=== PATIENT | male | born 1945 | race Caucasian/White ===

== ENCOUNTER 2020-07-15 10:00 | Outpatient (CLI) | payer MEDICARE, SELFPAY ==
[2020-07-15 10:33] LABS: Basophils Absolute Auto 0.1 K/mm3 (0.0-0.1); Basophils Percent Auto 0.8 % (0.2-1.2); Eosinophils Absolute Auto 0.2 K/mm3 (0-0.3); Eosinophils Percent Auto 2.4 % (0-4.4); Hematocrit 41.4 % (42.0-52.0); Hemoglobin 13.8 g/dL (14.0-18.0); Immature Granulocyte Absolute 0.03 K/mm3 (0.00-0.031); Immature Granulocyte Percent A 0.5 % (0-0.5); Lymphocytes Percent Auto 18.8 % (18.3-44.2); Mean Corpuscular HGB Conc 33.3 g/dl (32-36); Mean Corpuscular Hemoglobin 28.3 pg (26-34); Mean Corpuscular Volume 84.8 fl (80-100); Mean Platelet Volume 10.4 fl (7.4-10.4); Monocytes Absolute Auto 0.7 K/mm3 (0.1-0.6); Monocytes Percent Auto 10.2 % (2.6-8.5); Neutrophils Absolute Auto 4.3 K/mm3 (1.3-6.7); Neutrophils Percent Auto 67.3 % (45.5-73.1); Platelet Count Result 147 k/mm3 (150-375); Red Blood Count 4.88 M/mm3 (4.6-6.20); Red Cell Distribution Width 15.5 % (11.5-14.5); White Blood Count 6.4 K/mm3 (4.5-10.0)
[2020-07-15 10:45] LABS: Alanine Aminotransferase 20 U/L (4-50); Albumin Level 4.3 g/dL (3.5-5.1); Alkaline Phosphatase 99 U/L (38-126); Anion Gap 9 mmol/L (8-16); Aspartate Amino Transferase 31 U/L (17-59); Bilirubin,Total 0.9 mg/dL (0.2-1.3); Blood Urea Nitrogen 20 mg/dL (9-20); Calcium 9.6 mg/dL (8.4-10.2); Carbon Dioxide 24 mmol/L (22-30); Chloride 106 mmol/L (98-107); Cholesterol 123 mg/dL (0-200); Estimated Glomerular Filt Rate > 60; Glucose 127 mg/dL (75-110); HDL Direct 35 mg/dL; Potassium 4.3 mmol/L (3.4-5.0); Sodium 139 mmol/L (137-145); Triglycerides 260 mg/dL (<150)
[2020-07-15 10:47] LABS: Add Urine Microscopic? YES; Appearance Urine Clear (Clear); Bilirubin Urine Negative (Negative); Blood Urine Negative (Negative); Color Urine Yellow (Yellow); Glucose Urine UA Negative (Negative); Ketones Urine Negative (Negative); Leukocyte Esterase Ur Negative LEU/UL (NEGATIVE); Mucus Urine Rare /lpf; Nitrate Urine Negative (Negative); Protein Urine 2+ mg/dL (Negative); RBC Urine 0-2 /hpf (0-2); Specific Grav Ur 1.019 (1.001-1.035); Urobilinogen Urine Negative mg/dL (<2.0); WBC Urine 0-3 /hpf (0-3)
[2020-07-15 11:14] LABS: Prostate Specific Antigen 1.4 ng/mL (< OR = 4.0)
[2020-07-15 13:09] LABS: LDL Cholesterol Direct < 30 mg/dL
== END 2020-07-15 10:01 | disposition home or self-care (01) ==
LOC: ANHLAB 10:03
PROVIDERS: PCP Internal Medicine; Visit Provider Internal Medicine
DX: I10 Essential (primary) hypertension (principal); E87.1 Hypo-osmolality and hyponatremia; I25.10 Atherosclerotic heart disease of native coronary artery without angina pectoris; E78.5 Hyperlipidemia, unspecified; Z12.5 Encounter for screening for malignant neoplasm of prostate
CPT/HCPCS: 36415; 80053; 80061; 81001; 84153; 85025; G0103

== ENCOUNTER 2020-07-27 10:16 | Outpatient (CLI) | payer MEDICARE, SELFPAY ==
[2020-07-27 10:59] LABS: Total Protein Urine Random 98 mg/dL
== END 2020-07-27 10:17 | disposition home or self-care (01) ==
PROVIDERS: PCP Internal Medicine; Visit Provider Internal Medicine
DX: R80.9 Proteinuria, unspecified (principal)
CPT/HCPCS: 81050; 84156

== ENCOUNTER 2021-01-11 10:59 | Outpatient (CLI) | payer MEDICARE, SELFPAY ==
[2021-01-11 12:04] LABS: Basophils Percent Auto 0.5 % (0.2-1.2); Eosinophils Absolute Auto 0.1 K/mm3 (0-0.3); Hematocrit 40.6 % (42.0-52.0); Hemoglobin 13.8 g/dL (14.0-18.0); Immature Granulocyte Absolute 0.04 K/mm3 (0.00-0.031); Immature Granulocyte Percent A 0.7 % (0-0.5); Lymphocytes Absolute Auto 1.16 K/mm3 (0.9-3.2); Lymphocytes Percent Auto 18.9 % (18.3-44.2); Mean Corpuscular Hemoglobin 28.1 pg (26-34); Mean Corpuscular Volume 82.7 fl (80-100); Mean Platelet Volume 10.3 fl (7.4-10.4); Monocytes Absolute Auto 0.6 K/mm3 (0.1-0.6); Monocytes Percent Auto 9.8 % (2.6-8.5); Neutrophils Absolute Auto 4.2 K/mm3 (1.3-6.7); Neutrophils Percent Auto 68.1 % (45.5-73.1); Platelet Count Result 148 k/mm3 (150-375); Red Blood Count 4.91 M/mm3 (4.6-6.20); White Blood Count 6.1 K/mm3 (4.5-10.0)
[2021-01-11 12:17] LABS: Anion Gap 8 mmol/L (8-16); Blood Urea Nitrogen 22 mg/dL (9-20); Calcium 9.6 mg/dL (8.4-10.2); Carbon Dioxide 23 mmol/L (22-30); Chloride 105 mmol/L (98-107); Estimated Glomerular Filt Rate 54; Glucose 133 mg/dL (75-110); Potassium 4.5 mmol/L (3.4-5.0); Sodium 136 mmol/L (137-145)
[2021-01-11 12:45] LABS: Total Protein Urine Random 51 mg/dL
[2021-01-11 12:47] LABS: Hemoglobin A1C 6.8 % (<5.7)
== END 2021-01-11 11:00 | disposition home or self-care (01) ==
LOC: ANHLAB 11:03
PROVIDERS: PCP Internal Medicine; Visit Provider Internal Medicine
DX: I25.10 Atherosclerotic heart disease of native coronary artery without angina pectoris (principal); I10 Essential (primary) hypertension; R73.9 Hyperglycemia, unspecified; R80.9 Proteinuria, unspecified
CPT/HCPCS: 36415; 80048; 81050; 83036; 84156; 85025

== ENCOUNTER 2021-04-23 07:19 | Outpatient (CLI) | payer MEDICARE, SELFPAY ==
[2021-04-23 09:41] LABS: Hemoglobin A1C 6.1 % (<5.7)
[2021-04-23 09:49] LABS: Alanine Aminotransferase 23 U/L (4-50); Albumin Level 4.3 g/dL (3.5-5.1); Alkaline Phosphatase 105 U/L (38-126); Anion Gap 9 mmol/L (8-16); Aspartate Amino Transferase 34 U/L (17-59); Bilirubin,Total 0.8 mg/dL (0.2-1.3); Blood Urea Nitrogen 18 mg/dL (9-20); Calcium 9.3 mg/dL (8.4-10.2); Carbon Dioxide 21 mmol/L (22-30); Chloride 106 mmol/L (98-107); Cholesterol 146 mg/dL (0-200); Estimated Glomerular Filt Rate > 60; Glucose 143 mg/dL (65-110); HDL Direct 33 mg/dL; Potassium 4.3 mmol/L (3.4-5.0); Sodium 136 mmol/L (137-145); Triglycerides 364 mg/dL (<150)
[2021-04-23 11:33] LABS: LDL Cholesterol Direct < 30 mg/dL
== END 2021-04-23 07:20 | disposition home or self-care (01) ==
PROVIDERS: PCP Internal Medicine; Visit Provider Internal Medicine
DX: E11.9 Type 2 diabetes mellitus without complications (principal)
CPT/HCPCS: 36415; 80053; 80061; 83036

== ENCOUNTER 2021-10-21 07:55 | Outpatient (CLI) | payer MEDICARE, SELFPAY ==
[2021-10-21 08:19] LABS: Basophils Percent Auto 0.7 % (0.2-1.2); Eosinophils Absolute Auto 0.2 K/mm3 (0-0.3); Eosinophils Percent Auto 3.2 % (0-4.4); Hematocrit 43.1 % (42.0-52.0); Hemoglobin 14.3 g/dL (14.0-18.0); Immature Granulocyte Absolute 0.03 K/mm3 (0.00-0.031); Immature Granulocyte Percent A 0.5 % (0-0.5); Immature Platelet Fraction Pct 5.9 % (0.9-11.2); Lymphocytes Percent Auto 17.5 % (18.3-44.2); Mean Corpuscular HGB Conc 33.2 g/dl (32-36); Mean Corpuscular Volume 90.5 fl (80-100); Mean Platelet Volume 10.6 fl (7.4-10.4); Monocytes Absolute Auto 0.6 K/mm3 (0.1-0.6); Monocytes Percent Auto 9.8 % (2.6-8.5); Neutrophils Absolute Auto 3.9 K/mm3 (1.3-6.7); Neutrophils Percent Auto 68.3 % (45.5-73.1); Platelet Count Result 142 k/mm3 (150-375); Red Blood Count 4.76 M/mm3 (4.6-6.20); Red Cell Distribution Width 15.5 % (11.5-14.5); White Blood Count 5.7 K/mm3 (4.5-10.0)
[2021-10-21 08:30] LABS: Alanine Aminotransferase 19 U/L (4-50); Albumin Level 4.4 g/dL (3.5-5.1); Alkaline Phosphatase 78 U/L (38-126); Anion Gap 9 mmol/L (8-16); Aspartate Amino Transferase 29 U/L (17-59); Bilirubin,Total 0.8 mg/dL (0.2-1.3); Blood Urea Nitrogen 15 mg/dL (9-20); Calcium 9.5 mg/dL (8.4-10.2); Carbon Dioxide 22 mmol/L (22-30); Chloride 107 mmol/L (98-107); Cholesterol 134 mg/dL (0-200); Estimated Glomerular Filt Rate > 60; Glucose 132 mg/dL (65-110); HDL Direct 38 mg/dL; Potassium 4.2 mmol/L (3.4-5.0); Sodium 138 mmol/L (137-145); Triglycerides 230 mg/dL (<150)
[2021-10-21 08:41] LABS: Hemoglobin A1C 5.3 % (<5.7)
[2021-10-21 08:53] LABS: Creatinine Urine 169.9 mg/dL
[2021-10-21 09:04] LABS: LDL Cholesterol Direct < 30 mg/dL
[2021-10-21 10:36] LABS: MALB Creatinine Ratio 528.4 mg/g (0-30); Microalbumin Urine Random 897.8 mg/L (0-16.7)
== END 2021-10-21 07:56 | disposition home or self-care (01) ==
PROVIDERS: PCP Internal Medicine; Visit Provider Internal Medicine
DX: E11.9 Type 2 diabetes mellitus without complications (principal)
CPT/HCPCS: 36415; 80053; 80061; 82043; 83036; 85025; 85055

== ENCOUNTER 2021-11-10 11:16 | Outpatient (CLI) | payer MEDICARE, SELFPAY ==
--- NOTE | ~2021-11-10 | US_ITS ---
EXAMINATION: US renal BI EXAM DATE: 11/10/2021 11:52 INDICATION: R80.9 - Proteinuria, unspecified. TECHNIQUE: Multiple grayscale and Doppler images of the kidneys were obtained (by a technologist who performed the scan) and subsequently reviewed. There is no prior study for comparison. FINDINGS: Right kidney: There is normal contour and echogenicity. It measures 11.6 x 5.5 x 4.7 centimeters. Th ere is 8 mm renal cyst. There is no hydronephrosis. Left kidney: There is normal contour and echogenicity. It measures 12.6 x 6.2 x 6.0 centimeters. The re is 1.7 cm renal cyst. There is no hydronephrosis. Small focal region of bladder wall thickening anteriorly, measuring 4 mm in thickness by 7 mm in diam eter. IMPRESSION: Focal ovoid region of mild bladder wall thickening, could be sessile polyp type lesion. T ransitional cell cancer not excluded. Recommend cystoscopy for further evaluation. Reviewed, dictated and finalized at location B. VIORAL ANALYST IMPRESSION: Focal ovoid region of mild bladder wall thickening, could be sessil e polyp type lesion. Transitional cell cancer not excluded. Recommend cystoscop y for further evaluation.
[2021-11-10 12:57] LABS: Prostate Specific Antigen 1.5 ng/mL (< OR = 4.0)
[2021-11-14 06:00] LABS: Creatinine, Random Urine 120 mg/dL (20-320); Total Protein/Creatinine Ratio 1225 mg/g creat (22-128)
[2021-11-14 12:01] LABS: ANCA Screen Negative (Negative)
== END 2021-11-10 11:17 | disposition home or self-care (01) ==
PROVIDERS: PCP Internal Medicine; Visit Provider Internal Medicine
DX: R80.9 Proteinuria, unspecified (principal); Z12.5 Encounter for screening for malignant neoplasm of prostate
CPT/HCPCS: 36415; 76775; 82570; 84153; 84156; 84166; 86036; 86160; G0103

== ENCOUNTER 2021-12-22 00:17 | Day surgery (SDC) | payer MEDICARE, SELFPAY ==
[2021-12-15 11:34] VITALS: BMI 29.4
--- NOTE | 2021-12-21 10:56 | WPDANESEPPF ---
Anes - Initial Pre Proc Eval Procedure: Operation Date: 12/22/21 09:00 Proposed Procedures p Screening Colonoscopy - Alonso Andres MD Date/Time: 12/21/21 10:56 Surgeon: Alonso Andres MD Pre Op Diagnosis: family hx of colon ca Patient Data Age: 76 Gender: M Height: 1.78 m Weight: 93 kg Allergies Allergy/AdvReac Type Severity Reaction Status Date / Time No Known Allergies Allergy Verified 12/22/21 07:51 Home Medications Medication Instructions Recorded Confirmed Type aspirin 81 mg tablet,delayed 81 mg PO DAILY 08/16/19 12/15/21 History release lisinopril 5 mg tablet 5 mg PO DAILY 08/16/19 12/15/21 History atorvastatin 20 mg tablet 20 mg PO DAILY #90 tablet 07/06/21 12/15/21 Rx trazodone 100 mg tablet 100 mg PO .hs PRN #30 tablet 08/23/21 12/15/21 Rx metoprolol tartrate 25 mg tablet 25 mg PO BID #180 tablet 11/16/21 12/22/21 Rx Patient hx anesthesia problems: none Family hx anesthesia problems: none Results Review: All pre-operative results and documents have been reviewed as part of the pre-operative evaluation. 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 Essential (primary) hypertension Hearing impaired person History of chicken pox Hyperglycemia Hyperglycemia Myocardial infarct, old Obesity (BMI 30.0-34.9) Other and unspecified hyperlipidemia Surgical History Surgical History History of coronary artery stent placement Hx of CABG Family History Family History Father Family history of cardiovascular disease Mother Family history of cardiovascular disease Family history of Parkinson's disease Sibling Family history of cardiovascular disease Social History Social History Smoking status: Former smoker Tobacco type: cigarettes Smoking end date: 09/11/96 Alcohol intake: current Alcohol use details: occasional use 1-2 times per month Substance use: never Substance use type: does not use Living arrangements: with family Additional living arrangements comments: spouse Spiritual care concerns: No Anes - Eval Final PreProcedure Day of Procedure 12/21/21 10:56 Patient weight: overweight Heart: regular rate and rhythm Lungs: clear to auscultation and normal air movement Airway: Mallampati scale class II Neurological: alert and oriented Last oral intake: >/= 8 hours ASA classification: III Emergent: no Anesthetic plan: proceed Anesthesia type and monitoring: general GIVS and standard monitoring Results Review: All pre-operative results and documents have been reviewed as part of the pre-operative evaluation. Informed Consent: The patient's anesthetic plan and its attendant risks and benefits were discussed with the patient/family/POA. Questions were solicited and answers provided to the satisfaction of the patient/family/POA.
--- NOTE | 2021-12-21 17:37 | PM.HPGS ---
History of Present Illness History of Present Illness Consent: Risks, benefits, and alternatives have been discussed and questions answered. Patient agrees to proceed with procedure. Chief complaint: family hx of colon ca Narrative: Carmine English is a 76 year old male referred for colon cancer screening. He has a family history of Colon cancer in his father and paternal grandfather. He himself had a small polyp removed about 5 years ago. 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 Essential (primary) hypertension Hearing impaired person History of chicken pox Hyperglycemia Hyperglycemia Myocardial infarct, old Obesity (BMI 30.0-34.9) Other and unspecified hyperlipidemia Surgical History Surgical History History of coronary artery stent placement Hx of CABG Family History Family History Father Family history of cardiovascular disease Mother Family history of cardiovascular disease Family history of Parkinson's disease Sibling Family history of cardiovascular disease Social History Social History Smoking status: Former smoker Tobacco type: cigarettes Smoking end date: 09/11/96 Alcohol intake: current Alcohol use details: occasional use 1-2 times per month Substance use: never Substance use type: does not use Living arrangements: with family Additional living arrangements comments: spouse Spiritual care concerns: No Meds Home Medications and Allergies Home Medications Medication Instructions Recorded Confirmed Type aspirin 81 mg tablet,delayed 81 mg PO DAILY 08/16/19 12/15/21 History release lisinopril 5 mg tablet 5 mg PO DAILY 08/16/19 12/15/21 History atorvastatin 20 mg tablet 20 mg PO DAILY #90 tablet 07/06/21 12/15/21 Rx trazodone 100 mg tablet 100 mg PO .hs PRN #30 tablet 08/23/21 12/15/21 Rx metoprolol tartrate 25 mg tablet 25 mg PO BID #180 tablet 11/16/21 12/22/21 Rx Allergies Allergy/AdvReac Type Severity Reaction Status Date / Time No Known Allergies Allergy Verified 12/22/21 07:51 Exam Resp: Auscultation: clear to auscultation bilaterally Cardio: Rate: regular rate Rhythm: regular rhythm GI: GI Palp: Yes Soft to palpation and No Tenderness to palpation present (GI) Assessment and Plan Assessment and plan (1) Family history of colon cancer: Code(s): Z80.0 - Family history of malignant neoplasm of digestive organs Status: Acute Assessment and Plan: Colonoscopy with possible biopsy or polypectomy or cautery or injection of substances.
[2021-12-22 07:53] VITALS: BP 159/83; PULSE 74; RESP 19; TEMP 36.6; O2SAT 99
[2021-12-22] MEDS: LACTATED RINGERS 1,000 ML 150 ML IV CONT (08:05)
[2021-12-22 09:00] VITALS: BP 135/72; PULSE 60; RESP 18; O2SAT 99
[2021-12-22 09:10] VITALS: BP 145/83; PULSE 61; RESP 19; O2SAT 98
== END 2021-12-22 09:25 | disposition home or self-care (01) ==
PROVIDERS: PCP Internal Medicine; Visit Provider Internal Medicine Gastroenterology
PROC: 0DJD8ZZ Inspection of Lower Intestinal Tract, Via Natural or Artificial Opening Endoscopic (ICD-10-PCS; CPT 45378; principal; 2021-12-22 09:00)
DX: Z12.11 Encounter for screening for malignant neoplasm of colon (principal); Z80.0 Family history of malignant neoplasm of digestive organs; Z86.010 Personal history of colon polyps; K57.30 Diverticulosis of large intestine without perforation or abscess without bleeding; I25.10 Atherosclerotic heart disease of native coronary artery without angina pectoris; I10 Essential (primary) hypertension; I25.2 Old myocardial infarction; E11.9 Type 2 diabetes mellitus without complications; E78.5 Hyperlipidemia, unspecified; Z95.1 Presence of aortocoronary bypass graft; Z95.5 Presence of coronary angioplasty implant and graft; Z96.21 Cochlear implant status; Z87.891 Personal history of nicotine dependence
CPT/HCPCS: G0105; J2704; J7120

== ENCOUNTER 2022-04-20 08:59 | Outpatient (CLI) | payer MEDICARE, SELFPAY ==
[2022-04-20 10:11] LABS: Anion Gap 10 mmol/L (8-16); Blood Urea Nitrogen 19 mg/dL (9-20); Calcium 9.5 mg/dL (8.4-10.2); Carbon Dioxide 22 mmol/L (22-30); Chloride 101 mmol/L (98-107); Estimated Glomerular Filt Rate > 60; Glucose 141 mg/dL (65-110); Potassium 4.3 mmol/L (3.4-5.0); Sodium 133 mmol/L (137-145)
[2022-04-20 16:36] LABS: Creatinine Urine 116.1 mg/dL
[2022-04-20 17:43] LABS: MALB Creatinine Ratio 545.8 mg/g (0-30); Microalbumin Urine Random 633.7 mg/L (0-16.7)
[2022-04-25 19:46] LABS: Total Protein/Creatinine Ratio 690 mg/g creat (22-128)
== END 2022-04-20 09:00 | disposition home or self-care (01) ==
PROVIDERS: PCP Internal Medicine; Visit Provider Clinical Nurse Specialist
DX: R80.9 Proteinuria, unspecified (principal); I10 Essential (primary) hypertension
CPT/HCPCS: 36415; 80048; 82043; 82570; 84156; 84166

== ENCOUNTER 2022-06-03 07:52 | Outpatient (CLI) | payer MEDICARE, SELFPAY ==
[2022-06-03 18:24] LABS: Basophils Absolute Auto 0.1 K/mm3 (0.0-0.1); Basophils Percent Auto 1.2 % (0.2-1.2); Eosinophils Absolute Auto 0.3 K/mm3 (0-0.3); Eosinophils Percent Auto 4.8 % (0-4.4); Hematocrit 42.7 % (42.0-52.0); Hemoglobin 14.1 g/dL (14.0-18.0); Immature Granulocyte Absolute 0.08 K/mm3 (0.00-0.031); Immature Granulocyte Percent A 1.2 % (0-0.5); Immature Platelet Fraction Pct 7.8 % (0.9-11.2); Lymphocytes Absolute Auto 1.33 K/mm3 (0.9-3.2); Lymphocytes Percent Auto 19.9 % (18.3-44.2); Mean Corpuscular Volume 87.9 fl (80-100); Monocytes Absolute Auto 0.7 K/mm3 (0.1-0.6); Monocytes Percent Auto 10.6 % (2.6-8.5); Neutrophils Absolute Auto 4.2 K/mm3 (1.3-6.7); Neutrophils Percent Auto 62.3 % (45.5-73.1); Red Blood Count 4.86 M/mm3 (4.6-6.20); White Blood Count 6.7 K/mm3 (4.5-10.0)
[2022-06-03 18:58] LABS: Alanine Aminotransferase 21 U/L (6-50); Albumin Level 4.3 g/dL (3.5-5.1); Alkaline Phosphatase 100 U/L (38-126); Anion Gap 14 mmol/L (8-16); Aspartate Amino Transferase 33 U/L (17-59); Bilirubin,Total 0.6 mg/dL (0.2-1.3); Blood Urea Nitrogen 20 mg/dL (9-20); Calcium 9.3 mg/dL (8.4-10.2); Carbon Dioxide 19 mmol/L (22-30); Chloride 103 mmol/L (98-107); Estimated Glomerular Filt Rate 59; Glucose 151 mg/dL (65-110); Potassium 4.4 mmol/L (3.4-5.0); Sodium 136 mmol/L (137-145)
== END 2022-06-03 07:53 | disposition home or self-care (01) ==
PROVIDERS: PCP Internal Medicine; Visit Provider Internal Medicine
DX: R80.9 Proteinuria, unspecified (principal); I10 Essential (primary) hypertension; I25.810 Atherosclerosis of coronary artery bypass graft(s) without angina pectoris; E87.1 Hypo-osmolality and hyponatremia; R73.9 Hyperglycemia, unspecified
CPT/HCPCS: 36415; 80053; 83036; 85025; 85055

== ENCOUNTER 2022-09-01 08:48 | Outpatient (CLI) | payer MEDICARE, SELFPAY ==
[2022-09-01 19:15] LABS: Total Protein Urine Random 133 mg/dL
== END 2022-09-01 08:49 | disposition home or self-care (01) ==
LOC: ANHGOSHLAB 08:50
PROVIDERS: PCP Internal Medicine; Visit Provider Internal Medicine
DX: R80.9 Proteinuria, unspecified (principal)
CPT/HCPCS: 81050; 82570; 84156

== ENCOUNTER 2022-09-23 10:08 | Outpatient (CLI) | payer MEDICARE, SELFPAY ==
[2022-09-23 18:05] LABS: Microalbumin Urine Random 16.2 mg/L (0-16.7)
[2022-09-23 18:06] LABS: Creatinine Urine 22.7 mg/dL; MALB Creatinine Ratio 71.4 mg/g (0-30)
== END 2022-09-23 10:09 | disposition home or self-care (01) ==
LOC: ANHGOSHLAB 10:10
PROVIDERS: PCP Internal Medicine; Visit Provider Nurse Practitioner
DX: R80.9 Proteinuria, unspecified (principal)
CPT/HCPCS: 82043

== ENCOUNTER 2022-12-01 09:41 | Outpatient (CLI) | payer MEDICARE, SELFPAY ==
[2022-12-01 18:51] LABS: Alanine Aminotransferase 21 U/L (6-50); Albumin Level 4.3 g/dL (3.5-5.1); Alkaline Phosphatase 122 U/L (38-126); Anion Gap 12 mmol/L (8-16); Aspartate Amino Transferase 24 U/L (17-59); Bilirubin,Total 0.7 mg/dL (0.2-1.3); Blood Urea Nitrogen 19 mg/dL (9-20); Calcium 9.3 mg/dL (8.4-10.2); Carbon Dioxide 20 mmol/L (22-30); Chloride 104 mmol/L (98-107); Estimated Glomerular Filt Rate 59; Glucose 189 mg/dL (65-110); Potassium 4.6 mmol/L (3.4-5.0); Sodium 136 mmol/L (137-145)
[2022-12-01 19:29] LABS: Basophils Absolute Auto 0.1 K/mm3 (0.0-0.1); Basophils Percent Auto 0.8 % (0.2-1.2); Eosinophils Absolute Auto 0.2 K/mm3 (0-0.3); Eosinophils Percent Auto 3.5 % (0-4.4); Hematocrit 41.3 % (42.0-52.0); Hemoglobin 13.7 g/dL (14.0-18.0); Immature Granulocyte Absolute 0.05 K/mm3 (0.00-0.031); Immature Granulocyte Percent A 0.8 % (0-0.5); Lymphocytes Percent Auto 15.4 % (18.3-44.2); Mean Corpuscular HGB Conc 33.2 g/dl (32-36); Mean Corpuscular Hemoglobin 29.7 pg (26-34); Mean Corpuscular Volume 89.4 fl (80-100); Mean Platelet Volume 11.1 fl (7.4-10.4); Monocytes Absolute Auto 0.5 K/mm3 (0.1-0.6); Neutrophils Absolute Auto 4.7 K/mm3 (1.3-6.7); Neutrophils Percent Auto 71.5 % (45.5-73.1); Platelet Count Result 168 k/mm3 (150-375); Red Blood Count 4.62 M/mm3 (4.6-6.20); Red Cell Distribution Width 17.2 % (11.5-14.5); White Blood Count 6.5 K/mm3 (4.5-10.0)
[2022-12-01 19:49] LABS: Hemoglobin A1C 6.2 % (<5.7)
== END 2022-12-01 09:42 | disposition home or self-care (01) ==
LOC: ANHGOSHLAB 09:42
PROVIDERS: PCP Internal Medicine; Visit Provider Internal Medicine
DX: I25.810 Atherosclerosis of coronary artery bypass graft(s) without angina pectoris (principal); R73.9 Hyperglycemia, unspecified; R80.9 Proteinuria, unspecified; E87.1 Hypo-osmolality and hyponatremia
CPT/HCPCS: 36415; 80053; 83036; 85025

== ENCOUNTER 2023-05-29 10:13 | Outpatient (CLI) | payer MEDICARE, SELFPAY ==
[2023-05-29 11:10] LABS: Cholesterol 125 mg/dL (0-200); HDL Direct 33 mg/dL; Triglycerides 348 mg/dL (<150)
[2023-05-29 11:21] LABS: LDL Cholesterol Direct 34 mg/dL
== END 2023-05-29 10:14 | disposition home or self-care (01) ==
PROVIDERS: PCP Internal Medicine; Visit Provider Internal Medicine Cardiovascular Disease
DX: E78.2 Mixed hyperlipidemia (principal)
CPT/HCPCS: 36415; 80061

== ENCOUNTER 2023-06-05 08:23 | Outpatient (CLI) | payer MEDICARE, SELFPAY ==
[2023-06-05 18:30] LABS: Basophils Absolute Auto 0.1 K/mm3 (0.0-0.1); Basophils Percent Auto 1.1 % (0.2-1.2); Eosinophils Absolute Auto 0.3 K/mm3 (0-0.3); Eosinophils Percent Auto 4.8 % (0-4.4); Hematocrit 41.9 % (42.0-52.0); Hemoglobin 13.9 g/dL (14.0-18.0); Immature Granulocyte Absolute 0.06 K/mm3 (0.00-0.031); Immature Granulocyte Percent A 0.8 % (0-0.5); Lymphocytes Absolute Auto 1.27 K/mm3 (0.9-3.2); Lymphocytes Percent Auto 17.9 % (18.3-44.2); Mean Corpuscular HGB Conc 33.2 g/dl (32-36); Mean Corpuscular Hemoglobin 29.1 pg (26-34); Mean Corpuscular Volume 87.8 fl (80-100); Mean Platelet Volume 11.2 fl (7.4-10.4); Monocytes Absolute Auto 0.6 K/mm3 (0.1-0.6); Neutrophils Absolute Auto 4.7 K/mm3 (1.3-6.7); Neutrophils Percent Auto 66.4 % (45.5-73.1); Platelet Count Result 122 k/mm3 (150-375); Red Blood Count 4.77 M/mm3 (4.6-6.20); Red Cell Distribution Width 16.5 % (11.5-14.5); White Blood Count 7.1 K/mm3 (4.5-10.0)
[2023-06-05 18:57] LABS: Creatinine Urine 180.7 mg/dL; Total Protein Urine Random 82 mg/dL
[2023-06-05 19:01] LABS: Platelet Estimate Decreased (Adequate); Schistocytes None Seen (NORMAL)
[2023-06-05 19:13] LABS: Alanine Aminotransferase 20 U/L (6-50); Anion Gap 14 mmol/L (8-16); Aspartate Amino Transferase 35 U/L (17-59); Bilirubin,Total 0.8 mg/dL (0.2-1.3); Blood Urea Nitrogen 21 mg/dL (9-20); Calcium 9.3 mg/dL (8.4-10.2); Carbon Dioxide 16 mmol/L (22-30); Chloride 102 mmol/L (98-107); Estimated Glomerular Filt Rate 59; Glucose 172 mg/dL (65-110); Potassium 4.7 mmol/L (3.4-5.0); Sodium 132 mmol/L (137-145)
[2023-06-05 19:14] LABS: Albumin Level 4.3 g/dL (3.5-5.1); Alkaline Phosphatase 97 U/L (38-126)
[2023-06-05 20:08] LABS: Hemoglobin A1C 6.3 % (<5.7)
[2023-06-06 17:44] LABS: Prostate Specific Antigen 2.3 ng/mL (< OR = 4.0)
[2023-06-07 19:30] LABS: Apolipoprotein B 45 mg/dL (<90)
== END 2023-06-05 08:24 | disposition home or self-care (01) ==
PROVIDERS: PCP Internal Medicine; Visit Provider Internal Medicine
DX: E87.1 Hypo-osmolality and hyponatremia (principal); I10 Essential (primary) hypertension; I25.810 Atherosclerosis of coronary artery bypass graft(s) without angina pectoris; R73.9 Hyperglycemia, unspecified; R80.9 Proteinuria, unspecified; Z12.5 Encounter for screening for malignant neoplasm of prostate; I25.2 Old myocardial infarction
CPT/HCPCS: 36415; 80053; 81050; 82172; 82570; 83036; 84153; 84156; 85025; 85055; G0103

== ENCOUNTER 2023-08-07 09:45 | Outpatient (CLI) | payer MEDICARE, SELFPAY ==
[2023-08-07 12:38] LABS: Anion Gap 13 mmol/L (8-16); Blood Urea Nitrogen 23 mg/dL (9-20); Calcium 9.9 mg/dL (8.4-10.2); Carbon Dioxide 20 mmol/L (22-30); Chloride 102 mmol/L (98-107); Estimated Glomerular Filt Rate 54; Glucose 172 mg/dL (65-110); Potassium 4.5 mmol/L (3.4-5.0); Sodium 135 mmol/L (137-145)
== END 2023-08-07 09:46 | disposition home or self-care (01) ==
LOC: ANHGOSHLAB 09:46
PROVIDERS: PCP Internal Medicine; Visit Provider Clinical Nurse Specialist
DX: E87.1 Hypo-osmolality and hyponatremia (principal)
CPT/HCPCS: 36415; 80048

== ENCOUNTER 2023-11-29 09:46 | Outpatient (CLI) | payer MEDICARE, SELFPAY ==
[2023-11-29 15:01] LABS: Creatinine Urine 192.7 mg/dL
[2023-11-29 15:24] LABS: Anion Gap 10 mmol/L (8-16); Blood Urea Nitrogen 21 mg/dL (9-20); Calcium 9.8 mg/dL (8.4-10.2); Carbon Dioxide 20 mmol/L (22-30); Chloride 102 mmol/L (98-107); Estimated Glomerular Filt Rate 54; Glucose 224 mg/dL (65-110); Potassium 4.3 mmol/L (3.4-5.0); Sodium 132 mmol/L (137-145)
[2023-11-29 15:50] LABS: MALB Creatinine Ratio 365.3 mg/g (0-30); Microalbumin Urine Random 703.9 mg/L (0-16.7)
[2023-12-01 14:28] LABS: Hemoglobin A1C 7.8 % (<5.7)
== END 2023-11-29 09:47 | disposition home or self-care (01) ==
PROVIDERS: PCP Internal Medicine; Visit Provider Clinical Nurse Specialist
DX: E87.1 Hypo-osmolality and hyponatremia (principal); E11.9 Type 2 diabetes mellitus without complications; R80.1 Persistent proteinuria, unspecified
CPT/HCPCS: 36415; 80048; 82043; 83036

== ENCOUNTER 2023-12-04 12:28 | Outpatient (CLI) | payer MEDICARE, SELFPAY ==
[2023-12-04 14:10] LABS: Basophils Absolute Auto 0.1 K/mm3 (0.0-0.1); Basophils Percent Auto 1.2 % (0.2-1.2); Eosinophils Absolute Auto 0.1 K/mm3 (0-0.3); Eosinophils Percent Auto 2.4 % (0-4.4); Hematocrit 39.1 % (42.0-52.0); Hemoglobin 13.1 g/dL (14.0-18.0); Immature Granulocyte Absolute 0.05 K/mm3 (0.00-0.031); Immature Granulocyte Percent A 0.9 % (0-0.5); Immature Reticulocyte Fraction 14.7 % (3.0-15.9); Lymphocytes Absolute Auto 1.21 K/mm3 (0.9-3.2); Lymphocytes Percent Auto 20.8 % (18.3-44.2); Mean Corpuscular HGB Conc 33.5 g/dl (32-36); Mean Corpuscular Hemoglobin 29.3 pg (26-34); Mean Corpuscular Volume 87.5 fl (80-100); Mean Platelet Volume 11.1 fl (7.4-10.4); Monocytes Absolute Auto 0.5 K/mm3 (0.1-0.6); Monocytes Percent Auto 9.3 % (2.6-8.5); Neutrophils Absolute Auto 3.8 K/mm3 (1.3-6.7); Neutrophils Percent Auto 65.4 % (45.5-73.1); Platelet Count Result 152 k/mm3 (150-375); Red Blood Count 4.47 M/mm3 (4.6-6.20); Red Cell Distribution Width 16.4 % (11.5-14.5); Reticulocyte Hemoglobin Conten 34.8 pg (28.2-36.6); Reticulocyte Percent 3.76 % (0.7-4.3); Reticulocytes Absolute 0.17 10^6/uL (0.02-0.10); White Blood Count 5.8 K/mm3 (4.5-10.0)
[2023-12-04 19:59] LABS: Lactate Dehydrogenase 213 U/L (120-246)
[2023-12-04 21:04] LABS: Folic Acid 3.3 ng/mL (2.76->20)
[2023-12-06 19:53] LABS: Haptoglobin 133 mg/dL (43-212)
== END 2023-12-04 12:29 | disposition home or self-care (01) ==
LOC: ANHGOSHLAB 12:31
PROVIDERS: PCP Internal Medicine; Visit Provider Internal Medicine
DX: D61.818 Other pancytopenia (principal); D64.9 Anemia, unspecified; E11.9 Type 2 diabetes mellitus without complications; I10 Essential (primary) hypertension
CPT/HCPCS: 36415; 82607; 82728; 82746; 83010; 83615; 85025; 85046

== ENCOUNTER 2024-03-07 09:52 | Outpatient (CLI) | payer MEDICARE, SELFPAY ==
[2024-03-07 18:56] LABS: Basophils Absolute Auto 0.1 K/mm3 (0.0-0.1); Basophils Percent Auto 1.1 % (0.2-1.2); Eosinophils Absolute Auto 0.1 K/mm3 (0-0.3); Eosinophils Percent Auto 1.8 % (0-4.4); Hematocrit 41.8 % (42.0-52.0); Hemoglobin 13.9 g/dL (14.0-18.0); Immature Granulocyte Absolute 0.03 K/mm3 (0.00-0.031); Immature Granulocyte Percent A 0.5 % (0-0.5); Lymphocytes Absolute Auto 1.07 K/mm3 (0.9-3.2); Lymphocytes Percent Auto 17.2 % (18.3-44.2); Mean Corpuscular HGB Conc 33.3 g/dl (32-36); Mean Corpuscular Hemoglobin 29.3 pg (26-34); Mean Corpuscular Volume 88.2 fl (80-100); Mean Platelet Volume 10.7 fl (7.4-10.4); Monocytes Absolute Auto 0.5 K/mm3 (0.1-0.6); Monocytes Percent Auto 8.2 % (2.6-8.5); Neutrophils Absolute Auto 4.4 K/mm3 (1.3-6.7); Neutrophils Percent Auto 71.2 % (45.5-73.1); Platelet Count Result 161 k/mm3 (150-375); Red Blood Count 4.74 M/mm3 (4.6-6.20); Red Cell Distribution Width 16.7 % (11.5-14.5); White Blood Count 6.2 K/mm3 (4.5-10.0)
[2024-03-07 19:22] LABS: Alanine Aminotransferase 21 U/L (6-50); Albumin Level 4.5 g/dL (3.5-5.1); Alkaline Phosphatase 90 U/L (38-126); Anion Gap 11 mmol/L (4-12); Aspartate Amino Transferase 29 U/L (17-59); Blood Urea Nitrogen 20 mg/dL (9-20); Calcium 9.5 mg/dL (8.4-10.2); Carbon Dioxide 19 mmol/L (22-30); Chloride 105 mmol/L (98-107); Estimated Glomerular Filt Rate 54; Glucose 106 mg/dL (65-110); Potassium 4.3 mmol/L (3.4-5.0); Sodium 135 mmol/L (137-145)
[2024-03-07 22:49] LABS: Hemoglobin A1C 5.3 % (<5.7)
== END 2024-03-07 09:53 | disposition home or self-care (01) ==
LOC: ANHGOSHLAB 09:54
PROVIDERS: PCP Internal Medicine; Visit Provider Internal Medicine
DX: E11.65 Type 2 diabetes mellitus with hyperglycemia (principal); E11.29 Type 2 diabetes mellitus with other diabetic kidney complication; R80.9 Proteinuria, unspecified
CPT/HCPCS: 36415; 80053; 83036; 85025

== ENCOUNTER 2024-07-23 14:32 | Outpatient (CLI) | payer MEDICARE, SELFPAY ==
--- NOTE | ~2024-07-23 | CT_ITS ---
Pre and postcontrast Head CT History: Tremor Technique: Axial imaging of the brain was performed, prior to and following intravenous administrati on of 100 cc of Omnipaque 350 contrast material.. Dose reduction technique was used on this scan by u tilizing automated exposure control and iterative reconstruction technique. The dose-length product ( DLP) was 1210.67 mGy-cm. Findings: There is no evidence of intracranial hemorrhage, mass lesion, or acute infarct. Brain par enchyma appears normal. The ventricles and subarachnoid spaces are normal in size. The calvarium ap pears normal. Right cochlear implant present. Paranasal sinuses are clear and left mastoid air cells are clear. No abnormal postcontrast enhancement. Impression: No significant abnormality seen. Reviewed, dictated and finalized at [facility]. RACT ATTORNEY Impression: No significant abnormality seen.
[2024-07-23 15:01] LABS: Estimated Glomerular Filt Rate 45
== END 2024-07-23 14:33 | disposition home or self-care (01) ==
PROVIDERS: PCP Internal Medicine; Visit Provider Clinical Nurse Specialist
DX: R25.1 Tremor, unspecified (principal); R26.9 Unspecified abnormalities of gait and mobility
CPT/HCPCS: 70470; Q9967

== ENCOUNTER 2024-07-26 10:32 | Outpatient (CLI) | payer MEDICARE, SELFPAY ==
[2024-07-26 12:00] LABS: Basophils Percent Auto 0.7 % (0.2-1.2); Eosinophils Absolute Auto 0.1 K/mm3 (0-0.3); Eosinophils Percent Auto 1.5 % (0-4.4); Hematocrit 41.5 % (42.0-52.0); Hemoglobin 13.9 g/dL (14.0-18.0); Immature Granulocyte Absolute 0.03 K/mm3 (0.00-0.031); Immature Granulocyte Percent A 0.5 % (0-0.5); Immature Platelet Fraction Pct 4.1 % (0.9-11.2); Lymphocytes Absolute Auto 1.12 K/mm3 (0.9-3.2); Lymphocytes Percent Auto 18.6 % (18.3-44.2); Mean Corpuscular HGB Conc 33.5 g/dl (32-36); Mean Corpuscular Hemoglobin 29.5 pg (26-34); Mean Corpuscular Volume 88.1 fl (80-100); Mean Platelet Volume 10.5 fl (7.4-10.4); Monocytes Absolute Auto 0.6 K/mm3 (0.1-0.6); Monocytes Percent Auto 9.5 % (2.6-8.5); Neutrophils Absolute Auto 4.2 K/mm3 (1.3-6.7); Neutrophils Percent Auto 69.2 % (45.5-73.1); Platelet Count Result 142 k/mm3 (150-375); Red Blood Count 4.71 M/mm3 (4.6-6.20); Red Cell Distribution Width 16.8 % (11.5-14.5)
[2024-07-26 12:20] LABS: Alanine Aminotransferase 17 U/L (6-50); Albumin Level 4.5 g/dL (3.5-5.1); Alkaline Phosphatase 93 U/L (38-126); Anion Gap 9 mmol/L (4-12); Aspartate Amino Transferase 51 U/L (17-59); Bilirubin,Total 1.4 mg/dL (0.2-1.3); Blood Urea Nitrogen 19 mg/dL (9-20); Calcium 9.6 mg/dL (8.4-10.2); Carbon Dioxide 25 mmol/L (22-30); Chloride 103 mmol/L (98-107); Cholesterol 118 mg/dL (0-200); Estimated Glomerular Filt Rate 49; Glucose 114 mg/dL (65-110); HDL Direct 31 mg/dL; Potassium 4.5 mmol/L (3.4-5.0); Sodium 137 mmol/L (137-145); Triglycerides 273 mg/dL (<150)
[2024-07-26 12:25] LABS: Creatinine Urine 219.4 mg/dL
[2024-07-26 12:38] LABS: LDL Cholesterol Direct < 30 mg/dL
[2024-07-26 13:01] LABS: Hemoglobin A1C 5.1 % (<5.7)
[2024-07-26 13:11] LABS: MALB Creatinine Ratio 141.4 mg/g (0-30); Microalbumin Urine Random 310.3 mg/L (0-16.7)
== END 2024-07-26 10:33 | disposition home or self-care (01) ==
PROVIDERS: PCP Internal Medicine; Visit Provider Clinical Nurse Specialist
DX: R25.1 Tremor, unspecified (principal); E11.29 Type 2 diabetes mellitus with other diabetic kidney complication; I10 Essential (primary) hypertension; I25.810 Atherosclerosis of coronary artery bypass graft(s) without angina pectoris; R80.9 Proteinuria, unspecified
CPT/HCPCS: 36415; 80053; 80061; 82043; 82607; 83036; 84443; 85025; 85055

== ENCOUNTER 2024-07-29 10:16 | Outpatient (CLI) | payer MEDICARE, SELFPAY | END 2024-07-29 10:17 | disposition home or self-care (01) | LOC: ANHGOSHLAB 10:18 | PROVIDERS: PCP Internal Medicine; Visit Provider Clinical Nurse Specialist | DX: R25.1 Tremor, unspecified (principal) | CPT/HCPCS: 36415 ==

== ENCOUNTER 2024-10-31 12:34 | Outpatient (CLI) | payer MEDICARE, SELFPAY ==
--- OUTSIDE RECORDS SUMMARY | 2024-10-31 12:37 | XMS_ITS | Encounter Summary ---
Author Organization [facility] Address [address] [place] [address] Care Team Providers Care Manufacturing Production Technician Name Role Phone Magen Cabral DO Primary Care Provider Encounter Details Date Type Department Care Team (Late st Contact Info) Description 05/23/2007 Orders Only [facility] Internal Medicine [address] [place] [address] Magen Cabral DO [address] [place] [address] Social History Tobacco Use Types Packs/Day Years Used Date Smoking Tobacco: Never Assessed Sex and Gender Information Value Date Recorded Sex Assigned at Not on file Legal Sex Male 2:48 AM TRACKMAN Gender Identity Not on file Sexual Orientation Not on file documented as of this encounter Progress Notes * Magen Cabral DO - 01/25/2008 5:11 PM CDT TIME:09:51 am PATIENT`S HOME PHONE: PATIENT`S WORK PHONE: PATIENT`S INSURANCE: [facility] WHO TOOK THE CALL: Kilo Allen GENERAL INFORMATION LAST VISIT: 05-16-07 WHO CALLED: Pharmacy called. CURRENT ALLERGY LIST: [facility] NUMBER: [phone] SECTION 1: REQUESTED ACTION [facility] 05/23/07 at 09:58 am: MEDICATION REQUEST: MEDICATIONS: LISINOPRIL ORAL TABLET 10 MG, 1 po qd, 90 Dispensed, 3 Fills, 90 Duration/Days Supply, status: CONTINUED, 10/23/2006. lr 04-21-07///pb SECTION 2: OK TO RF JOSE 3 FINAL ACTION: [facility] 05/23/07 at 02:18 pm Called pharmacy at 05/23/07 at 02:18 pm. lmr////pb Electronically Signed by: Kilo Allen on Wednesday, May 23, 2007 documented in this encounter Plan of Treatment Not on file documented as of this encounter Visit Diagnoses Not on filedocumented in this encounter Additional Health Concerns Infection Onset Date Last Indicated Resolved Time R/O COVID-19 10/30/2020 10/30/2020 11/06/2020 1:16 AM TRACKMAN documented as of this encounter Care Teams Manufacturing Production Technician Relationship Specialty Start Date End Date Magen Cabral DO [address] [id number] PCP - General 07/18/06 documented as of this encounter
--- OUTSIDE RECORDS SUMMARY | 2024-10-31 12:37 | XMS_ITS | Referral Summary ---
Author Organization [facility] [address] Address [address] [place] [address] Care Team Providers Care Retail Interior Designer Name Role Phone Moses Godwin DO Primary Care Provider [phone] Encounters Date Type Department Care Team Description 10/14/2024 10:00 AM ICT SALES ASSISTANT Procedure visit [facility] Otolaryngology [address] [facility] Medicine [address] [place] [address] [place] [address] Laura Porter Au.D. Sensory hearing loss, bilateral (Primary Dx) from Last 3 Months Allergies No known active allergies Medications aspirin 81 mg tablet take 1 tablet by oral route every day 0 0 03/22/2016 Active atorvastatin (LIPITOR) 20 mg tablet take 1 tablet by oral route every day 0 0 03/22/2016 Active traZODone (DESYREL) 100 mg tabletIndicatio ns:insomnia associated with depression 1 tablet (100 mg total) nightly 1 07/07/2019 Active acetaminophen (TYLENOL) 500 mg tablet Take 2 tablets (1,000 mg total) by mouth every 6 (six) hours as needed for pain Active lisinopriL (PRINIVIL,ZESTR [place]) 20 mg tablet Take 1 tablet (20 mg total) by mouth daily 05/03/2022 Active metoprolol tartrate (LOPRESSOR) 25 mg immediate release tablet Take 0.5 tablets (12.5 mg total) by mouth 2 (two) times a day 06/20/2024 Active Ozempic 1 mg/dose (4 mg/3 mL) pen injector injection 06/21/2024 Active Active Problems Problem Noted Date Diagnosed Date Medication side effects 12/04/2023 Class 1 obesity due to exces s calories with serious comorbidity and body mass index (BMI) of 32.0 to 32.9 in adult 05/29/2023 Mixed hyperlipidemia 11/08/[address] 09/06/2019 Impacted cerumen of right ear 08/02/2019 Otitis externa, fungal, right ear 08/02/2019 Assessment & Plan (08/02/2019 1:36 PM ICT SALES ASSISTANT): Right fungal OE. Ear cleaned. Clotrimazole drops. S/P CABG x 3 09/25/2018 Sensorineural hearing loss (SNHL) of both ears 1 Assessment & Plan (08/02/2019 1:33 PM ICT SALES ASSISTANT): Plan right CI. Check MRI given duration of hearing loss and possible remote h/o meningitis- check cochlear patency. Cochlear implant surgical discussion: I disussed cochlear implantation as a potential hearing rehabilitation for his hearing loss. I discussed expectations and the limitations of CI hearing. I discussed the risks of cochlear implantation with the patient including infection, bleeding, device failure. We discussed the risks including chorda tympani injury which could cause temporary or long-term taste dysfunction. We also discussed potential facial nerve injury which could cause facial weakness. We discussed the likelihood of short-term vertigo and imbalance after surgery. Coronary artery disease invo lving [place] heart without angina pectoris 06/15/2018 Overview (06/15/2018): Added automatically from request for surgery [id number] DANIEL (dyspnea on exertion) 03/26/2018 S/P coronary artery stent placement 11/10/2014 Overview (12/15/2016): H/O placement of stent in anterior descending branch of left coronary artery Benign hypertension 11/10/2014 Overview (12/15/2016): HTN (hypertension), benign Abnormal stress test 11/10/2014 Overview (12/15/2016): Abnormal stress test Resolved Problems Problem Noted Date Diagnosed Date Resolved Date History of cardiac catheterization 03/22/2016 05/03/2021 Overview (12/15/2016): S/P right coronary artery (RCA) stent placement Patient post angioplasty 12/22/2014 Overview (12/15/2016): Status post angioplasty with stent Dyslipidemia 11/10/2014 11/08/2021 Overview (12/15/2016): Dyslipidemia Social History Tobacco Use Types Packs/Day Years Used Date Smoking Tobacco: Former Cigarettes 2 32.5 0 03/05/1964 - 1996 Smokeless Tobacco: Never Tobacco Cessation:Counseling Given: Not Answered Comments:I quit mainly for the cost. My ashtray was smoking more than I was. Alcohol Use Standard Drinks/Week Comments Yes 2 (1 standard drink = 0.6 oz pure alcohol) once a month or when with family gathering or dining out Sex and Gender Information Value Date Recorded Sex Assigned at Not on file Legal Sex Male 11:52 AM ICT SALES ASSISTANT Gender Identity Male 10/02/2019 2:06 PM ICT SALES ASSISTANT Sexual Orientation Straight 06/11/2019 6: 01 PM CDT Last Filed Vital Signs Vital Sign Reading Time Taken Comments Blood Pressure 124/64 06/26/2024 9:40 AM CDT Pulse 76 06/26/2024 9:40 AM CDT Temperature 36.6 C (97.9 F) 08/12/2019 5:50 PM ICT SALES ASSISTANT Respiratory Rate 18 08/12/2019 6:30 PM ICT SALES ASSISTANT Oxygen Saturation 96% 06/26/2024 9:40 AM CDT Inhaled Oxygen Concentration - - Weight 93 kg (205 lb) 06/26/2024 9:40 AM CDT Height 177.8 cm (5' 10 ) 06/26/2024 9:40 AM CDT Body Mass Index 29.41 06/26/2024 9:40 AM CDT Plan of Treatment Not on file Medical Devices Implanted Type Area Art Glass Setter Device Identifier Shelf Expiration Date Model / Serial / Lot [employer] Ci-1601-04 Hires Ultra Hifocus 3d Mid Ashley Electrode Implant Cochlear - [id number] - [id number] Implanted:Qty: 1 on 08/12/2019 by Destin Mas MD at [facility] Right: Ear [employer] [id number] 01/08/2022 CI-1601-04 / [id number] / Procedures Procedure Name Priority Date/Time Associated Diagnosis Comments AUDBASE RESULTS 10/14/2024 9:50 AM ICT SALES ASSISTANT from Last 3 Months Results * AudBase Results (10/14/2024 9:50 AM ICT SALES ASSISTANT) Provider Scanning AUDIOLOGY SERVICES ORDERABLES Final Result from Last 3 Months Insurance MEDICARE SOLUTIONS MEDICARE SOLUTIONS [facility] MDCR HMO REF MEDICARE SOLUTIONS Advance Directives For more information, please contact: [phone] Documents on File Type Date Recorded Patient Meter And Service Line Inspector Expl anation ADVANCE DIRECTIVE 08/24/2018 3:22 PM * Full Code (Latest Code Status on File) Date Activated Date Inactivated Comments 08/17/2018 4:22 PM 08/23/2018 5:06 PM * Full Code Date Activated Date Inactivated Comments 07/17/2018 10:33 AM 07/17/2018 9:22 PM Care Teams Retail Interior Designer Relationship Specialty Start Date End Date Moses Godwin DO [facility] - General 12/09/16
--- OUTSIDE RECORDS SUMMARY | 2024-10-31 12:37 | XMS_ITS | Encounter Summary ---
Author Organization [facility] Address [address] [place] [address] Care Team Providers Care Radio Commentator Name Role Phone Magen Cabral DO Primary Care Provider Encounter Details Date Type Department Care Team (Late st Contact Info) Description 11/16/2007 Outpatient Historical [facility] Internal Medicine [address] [place] [address] Magen Cabral DO [address] [place] [address] Social History Tobacco Use Types Packs/Day Years Used Date Smoking Tobacco: Never Assessed Sex and Gender Information Value Date Recorded Sex Assigned at Not on file Legal Sex Male 2:48 AM PRESS MACHINE FEEDER Gender Identity Not on file Sexual Orientation Not on file documented as of this encounter Last Filed Vital Signs Vital Sign Reading Time Taken Comments Blood Pressure 110/60 11/16/2007 2:00 PM PRESS MACHINE FEEDER Pulse - - Temperature - - Respiratory Rate - - Oxygen Saturation - - Inhaled Oxygen Concentration - - Weight 98 kg (216 lb) 11/16/2007 2:00 PM PRESS MACHINE FEEDER Height - - Body Mass Index - - documented in this encounter Plan of Treatment Not on file documented as of this encounter Visit Diagnoses Not on filedocumented in this encounter Additional Health Concerns Infection Onset Date Last Indicated Resolved Time R/O COVID-19 10/30/2020 10/30/2020 11/06/2020 1:16 AM PRESS MACHINE FEEDER documented as of this encounter Care Teams Radio Commentator Relationship Specialty Start Date End Date Magen Cabral DO [address] [place] [address] PCP - General 07/18/06 documented as of this encounter
--- OUTSIDE RECORDS SUMMARY | 2024-10-31 12:37 | XMS_ITS | Encounter Summary ---
Author Organization [facility] Address [address] [place] [address] Care Team Providers Care Wastewater Manager Name Role Phone Magen Cabral DO Primary Care Provider Encounter Details Date Type Department Care Team (Late st Contact Info) Description 05/16/2007 Outpatient Historical [facility] Internal Medicine [address] [place] [address] Magen Cabral DO [address] [place] [address] Social History Tobacco Use Types Packs/Day Years Used Date Smoking Tobacco: Never Assessed Sex and Gender Information Value Date Recorded Sex Assigned at Not on file Legal Sex Male 2:48 AM MERCHANDISE PLANNING MANAGER Gender Identity Not on file Sexual Orientation Not on file documented as of this encounter Last Filed Vital Signs Vital Sign Reading Time Taken Comments Blood Pressure 114/74 05/16/2007 11:15 AM CDT Pulse - - Temperature - - Respiratory Rate - - Oxygen Saturation - - Inhaled Oxygen Concentration - - Weight 97.1 kg (214 lb) 05/16/2007 11:15 AM CDT Height - - Body Mass Index - - documented in this encounter Plan of Treatment Not on file documented as of this encounter Visit Diagnoses Not on filedocumented in this encounter Additional Health Concerns Infection Onset Date Last Indicated Resolved Time R/O COVID-19 10/30/2020 10/30/2020 11/06/2020 1:16 AM MERCHANDISE PLANNING MANAGER documented as of this encounter Care Teams Wastewater Manager Relationship Specialty Start Date End Date Magen Cabral DO [address] [place] [address] PCP - General 07/18/06 documented as of this encounter
--- OUTSIDE RECORDS SUMMARY | 2024-10-31 12:37 | XMS_ITS | Encounter Summary ---
Author Organization [employer] [facility] Address [address] [place] [address] Care Team Providers Care Urban Design Consultant Name Role Phone Magen Cabral DO Primary Care Provider Encounter Details Date Type Department Care Team (Latest Contact Info) Description 07/18/2006 Outpatient Historical [facility] Internal Medicine [address] [place] [address] Magen Cabral DO [address] [place] [address] Other and Unspecified Hyperlipidemia (Primary Dx) Social History Tobacco Use Types Packs/Day Years Used Date Smoking Tobacco: Never Assessed Sex and Gender Information Value Date Recorded Sex Assigned at Not on file Legal Sex Male 2:48 AM DRESSING ROOM PORTER Gender Identity Not on file Sexual Orientation Not on file documented as of this encounter Plan of Treatment Not on file documented as of this encounter Procedures Procedure Name Priority Date/Time Associated Diagnosis Comments PSA MEDICARE SCREEN Routine 07/18/2006 7 :18 AM DRESSING ROOM PORTER TSH REFLEXIVE Routine 07/18/2006 7:18 AM DRESSING ROOM PORTER URINALYSIS WITH REFLEX CULTURE Routine 07/18/2006 7:18 AM DRESSING ROOM PORTER CBC WITH DIFFERENTIAL Routine 07/18/2006 7:18 AM DRESSING ROOM PORTER CBC WITH DIFFERENTIAL Routine 07/18/2006 7:18 AM DRESSING ROOM PORTER URINALYSIS W/REFLEX MICROSCOPIC Routine 07/18/2006 7:18 AM DRESSING ROOM PORTER HEMOGLOBIN A1C Routine 07/18/2006 7:18 AM DRESSING ROOM PORTER LIPID PANEL Routine 07/18/2006 7:18 AM DRESSING ROOM PORTER COMPREHENSIVE METABOLIC PANEL Routine 07/18/2006 7:18 AM DRESSING ROOM PORTER documented in this encounter Results * HEMOGLOBIN A1C (07/18/2006 7:18 AM DRESSING ROOM PORTER) HEMOGLOBIN A1C 5.2 4.1 - 6.1 % of Hgb INTERFACE SYSTEM GLUCOSE, MEAN BLOOD 87 mg/dL INTERFACE SYSTEM 07/18/2006 7:18 AM DRESSING ROOM PORTER Magen Cabral DO CHEMISTRY ORDERABLES F inal Result Performing Organization Address [facility] de Phone Number INTERFACE SYSTEM Refer to clinic/hospital department * (ABNORMAL) URINALYSIS (07/18/2006 7:18 AM DRESSING ROOM PORTER) COLOR UA Yellow INTERFACE SYSTEM CLARITY UA Clear Clear INTERFACE SYSTEM SPECIFIC GRAVITY UA 1.015 1.001 - 1.035 INTERFACE SYSTEM PH UA 5.5 5.0 - 8.0 INTERFACE SYSTEM LEUKOCYTE ESTERASE UA Negative Negative INTERFACE SYSTEM NITRITE UA Negative Negative INTERFACE SYSTEM PROTEIN UA Trace(A) Negative INTERFACE SYSTEM GLUCOSE UA Negative Negative INTERFACE SYSTEM KETONES UA Negative Negative INTERFACE SYSTEM UROBILINOGEN UA <1 <=1 mg/dL INTE RFACE SYSTEM BILIRUBIN UA Negative Negative INTERFA CE SYSTEM BLOOD UA Negative Negative INTERFACE SYSTEM WBC UA <1 0 - 3 /HPF INTERFACE SYSTEM RBC UA <1 0 - 3 /HPF INTERFACE SYSTEM HYALINE CAST 2 0 - 2 /LPF INTERF MERYL SYSTEM 07/18/2006 7:18 AM DRESSING ROOM PORTER Magen Aguilar [employer] DO URINE ORDERABLES Final Result Performing Organization Address [facility] Co de Phone Number INTERFACE SYSTEM Refer to clinic/hospital department * URINALYSIS WITH REFLEX CULTURE (07/18/2006 7:18 AM DRESSING ROOM PORTER) URINE CULTURE ORDER Not indicated INTERFACE SYSTEM Comment: Criteria for a reflex culture include one or more of the following: Abn ormal nitrite, leukocyte esterase, WBCs or RBCs. Lack of qualifying criteria does not exclude the possiblity of a urinary tract infection. Dilute urine, drug interference, etc. may decrease the sensitivity of the criteria analytes. 07/18/2006 7:18 AM DRESSING ROOM PORTER Magen [facility] DO URINE ORDERABLES Final Result Performing Organization Address City/[facility] de Phone Number INTERFACE SYSTEM Refer to clinic/hospital department * CBC WITH DIFFERENTIAL (07/18/2006 7:18 AM DRESSING ROOM PORTER) NEUTROPHILS 59 45 - 70 % INTERFAC E SYSTEM LYMPHOCYTES 25 16 - 45 % INTERFAC E SYSTEM MONOCYTES 10 3 - 13 % INTERFACE SYSTEM EOSINOPHILS 4 0 - 7 % INTERFAC E SYSTEM BASOPHILS 2 0 - 2 % INTERFACE SYSTEM NEUTROPHIL ABSOLUTE 2.51 1.90 - 7.00 K/uL INTERFACE SYSTEM LYMPHOCYTE ABSOLUTE 1.06 0.70 - 4.50 K/uL INTERFACE SYSTEM MONOCYTE ABSOLUTE 0.44 0.10 - 1.30 K/uL INTERFACE SYSTEM EOSINOPHIL ABSOLUTE 0.15 0.00 - 0.70 K/uL INTERFACE SYSTEM BASOPHILS ABSOLUTE 0.07 0.00 - 0.20 K/uL INTERFACE SYSTEM 07/18/2006 7:18 AM DRESSING ROOM PORTER [facility] Outline [facility] DO HEMATOLOGY ORDERABLES Final Result Performing Organization Address [facility] de Phone Number INTERFACE SYSTEM Refer to clinic/hospital department * (ABNORMAL) CBC WITH DIFFERENTIAL (07/18/2006 7:18 AM DRESSING ROOM PORTER) WBC 4.2 4.0 - 9.8 K/uL INTERFACE SYSTEM RBC 4.51 4.50 - 5.40 M/uL INTERFACE SYSTEM HEMOGLOBIN 13.1(L) 13.6 - 16.5 g/dL INTERFACE SYSTEM HEMATOCRIT 37.7(L) 40.0 - 48.0 % INTERFACE SYSTEM MCV 83.6 82.0 - 99.0 fL INTERFACE SYSTEM MCH 29.0 27.2 - 32.6 pg INTERFACE SYSTEM MCHC 34.7 31.5 - 35.5 % INTERFACE SYSTEM RDW 14.7(H) 11.5 - 14.5 % INTERFACE SYSTEM RDW-STDEV 45.2 37.1 - 48.7 fL INTERFACE SYSTEM PLATELETS 222 140 - 350 K/uL INTERFACE SYSTEM MPV 11.0 9.3 - 12.4 fL INTERFACE SYSTEM 07/18/2006 7:18 AM DRESSING ROOM PORTER Magen Cabral DO HEMATOLOGY ORDERABLES Final Result INTERFACE SYSTEM Refer to clinic/hospital department * TSH REFLEXIVE (07/18/2006 7:18 AM DRESSING ROOM PORTER) Pathologist [facility] TSH 1.65 0.27 - 4.20 uU/mL INTERFACE SYSTEM 07/18/2006 7:18 AM DRESSING ROOM PORTER Magen Cabral DO CHEMISTRY ORDERABLES F inal Result Performing Organization Address City/[facility]/ZIP Co de Phone Number INTERFACE SYSTEM Refer to clinic/hospital department * PSA MEDICARE SCREEN (07/18/2006 7:18 AM DRESSING ROOM PORTER) Pathologist [facility] PSA, SCREEN 0.6 0.0 - 4.0 ng/mL INTERFACE SYSTEM Comment:Performed on [employer] E170 System 07/18/2006 7:18 AM DRESSING ROOM PORTER Magen Cabral DO CHEMISTRY ORDERABLES C OM Final Result INTERFACE SYSTEM Refer to clinic/hospital department * (ABNORMAL) COMPREHENSIVE METABOLIC PANEL (07/18/2006 7:18 AM DRESSING ROOM PORTER) GLUCOSE 117(H) 65 - 99 mg/dL INTERFACE SYSTEM CREATININE 1.3 0.5 - 1.3 mg/dL INTERFACE SYSTEM CALCIUM 9.4 8.4 - 10.2 mg/dL INTERFACE SYSTEM ALKALINE PHOSPHATASE 80 40 - 129 U/L INTERFACE SYSTEM AST 26 12 - 38 U/L INTERFACE SYSTEM ALT 24 0 - 41 U/L INTERFACE SYSTEM TOTAL PROTEIN 8.0 6.3 - 8.6 g/dL INTERFACE SYSTEM ALBUMIN 4.8 3.4 - 4.8 g/dL INTERFACE SYSTEM BILIRUBIN TOTAL 0.6 0.2 - 1.0 mg/dL INTERFACE SYSTEM BUN 23(H) 6 - 20 mg/dL INTERFACE SYSTEM SODIUM 140 135 - 145 mmol/L INTERFACE SYSTEM POTASSIUM 3.6 3.5 - 4.9 mmol/L INTERFACE SYSTEM CHLORIDE 100 96 - 108 mmol/L INTERFACE SYSTEM CO2 27 22 - 30 mmol/L INTERFACE SYSTEM 07/18/2006 7:18 AM DRESSING ROOM PORTER Magen Cabral DO CHEMISTRY ORDERABLES F inal Result Performing Organization Address [facility] Co de Phone Number INTERFACE SYSTEM Refer to clinic/hospital department * LIPID PANEL (07/18/2006 7:18 AM DRESSING ROOM PORTER) CHOLESTEROL 117 100 - 199 mg/dL INTERFACE SYSTEM TRIGLYCERIDE 102 10 - 149 mg/dL INTERFACE SYSTEM HDL 45 40 - 59 mg/dL INTERFACE SYSTEM CHOL/HDL RATIO 2.6 2.0 - 5.0 INTER FACE SYSTEM LDL CALCULATED 52 <=99 mg/dL INTERFACE SYSTEM LIPID PANEL COMMENT See Below INTERFACE SYSTEM Comment: The adult ATP and pediatric NCEP classifications for lipids are available on the [facility] Intranet at: [email or web address] Select: Lab Policies and Procedures Select: Reference Ranges - Lipids 07/18/2006 7:18 AM DRESSING ROOM PORTER Magen Cabral DO CHEMISTRY ORDERABLES F inal Result INTERFACE SYSTEM Refer to clinic/hospital department documented in this encounter Visit Diagnoses Diagnosis Other and unspecified hyperlipidemia- Primary documented in this encounter Additional Health Concerns Infection Onset Date Last Indicated Resolved Time R/O COVID-19 10/30/2020 10/30/2020 11/06/2020 1:16 AM DRESSING ROOM PORTER documented as of this encounter Care Teams Urban Design Consultant Relationship Specialty Start Date End Date Magen Cabral DO [address] [place] [address] PCP - General 07/18/06 documented as of this encounter
--- OUTSIDE RECORDS SUMMARY | 2024-10-31 12:37 | XMS_ITS | Encounter Summary ---
Author Organization [employer] Address [address] [place] [address] Care Team Providers Care Ditch Rider Name Role Phone Magen Cabral DO Primary Care Provider Encounter Details Date Type Department Care Team (Late st Contact Info) Description 07/06/2006 [facility] [address] [place] [address] Magen Cabral DO [address] [place] [address] Social History Tobacco Use Types Packs/Day Years Used Date Smoking Tobacco: Never Assessed Sex and Gender Information Value Date Recorded Sex Assigned at Not on file Legal Sex Male 2:48 AM HEALTH ANALYTICS CONSULTANT Gender Identity Not on file Sexual Orientation Not on file documented as of this encounter Progress Notes * Magen Cabral DO - 06/24/2008 9:38 PM CDT BLOOD PRESSURE: 148/84 Left Arm Sitting WEIGHT: 208lbs NURSE NAME: Anupchika Ann Marie ALLERGIES: No known drug allergies. MEDICATIONS: Medication list current. unsure when last Td. was CHIEF COMPLAINT BUTTON SEWER- establish, needs refills. HISTORY: HISTORY: 272.4-HYPERLIPIDEMIA The patient`s weight is the same. The patient is somewhat compliant with the low saturated fat diet. The patient does not exercise. The patient is tolerating the medications, compliant with medications. The patient's most recent LDL is at goal, most recent HDL is at goal, most recent triglyceride is not at goal, most recent liver function is normal. 401.1-HYPERTENSION ESSENTIAL BENIGN The patient`s weight is the same. The patient is somewhat compliant with diet. The patient is not exercising. The patient denies chest pain, shortness of breath, dyspnea on exertion, pedal edema, or headache. The patient is tolerating the medication, compliant with medication. 414.00-CORONARY ARTERY DISEASE Patient states not having any chest pain. The patient denies dyspneaon exertion, orthopnea, pedal edema, palpitations, and paroxysmal nocturnal dyspnea. No complications noted from the medication presently being used. The patient is being seen by a adoption specialist. CURRENT PROBLEM LIST: 272.4 HYPERLIPIDEMIA 401.1 HYPERTENSION ESSENTIAL BENIGN 414.00 CORONARY ARTERY DISEASE CURRENT MEDICATION LIST: TETRACYCLINE HCL ORAL TABLET 250 MG, 1 po bid NIASPAN ORAL TABLET CONTROLLED RELEASE 500 MG, 1 po qd NITROQUICK SUBLINGUAL TABLET SUBLINGUAL 0.4 MG, PRN OMACOR ORAL CAPSULE CONVENTIONAL 1 GM, 2 po bid TOPROL XL ORAL TABLET 24 HR 25 MG, 1 po qd HYDROCHLOROTHIAZIDE ORAL TABLET 25 MG, 1 po qd LISINOPRIL ORAL TABLET 10 MG, 1 po qd GEMFIBROZIL ORAL TABLET 600 MG, 1 po bid TEMAZEPAM ORAL CAPSULE CONVENTIONAL 30 MG, PRN at hs CURRENT ALLERGY LIST: NKDA ROS: GENERAL: Normal activity and energy level, no change in appetite. No major weight gain or loss. No malaise, chills, fever, diaphoresis.. EYES: WEARS CORRECTIVE LENSES. ENT: No hearing loss, epistaxis, hoarseness or dysphagia. No sinus congestion.. ENDOCRINE: No history of diabetes, no history of thyroid problems. CARDIAC: No chest pain, palpitations, orthopnea, dyspnea on exertion, or paroxysmal nocturnal dyspnea.. RESPIRATORY: No dyspnea, cough, hemoptysis or wheezing.. SKIN/BREAST/CHEST: No rashes or non-healing lesions. No breast symptoms noted. HEMATOLOGIC/LYMPHATIC: No anemia, easy bruising, bleeding or swollen nodes. : HAS A SLOW, WEAK URINARY STREAM, MUST STRAIN TO START URINARY STREAM, HAS A SMALL URINARY STREAM, NEEDS TO URINATE MORE THAN ONCE PER NIGHT. GI: No abdominal pain, nausea, vomiting, diarrhea, constipation, melena, or hematochezia.. NEUROLOGIC: No headaches, no tingling noted, no numbness. MUSCULOSKELETAL: No joint complaints, no muscle complaints. PSYCHIATRIC: No increased nervousness, mood changes or depression. Coping well. PAST MEDICAL HISTORY: MEDICAL: Heart disease, hypercholesterolemia, hypertension. SURGICAL: No previous surgery. CURRENT MEDICATIONS: list ALLERGIES/ADVERSE REACTIONS: No known drug allergies. FAMILY HISTORY: GENERAL FAMILY ILLNESS: POSITIVE HISTORY OF ADULT ONSET DIABETES, no heart disease. FATHER: The father is living. No major illnesses are known. MOTHER: The mother is . Illnesses: Heart disease, cancer of the breast. SIBLINGS: 1) The patient's brother is living. Illnesses: Adult onset diabetes. SOCIAL HISTORY: MARITAL HISTORY: , living with spouse. TOBACCO USE: Has no significant smoking history. 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 CAFFEINE: A moderate amount of caffeinated beverages daily. EXERCISES: The patient is not exercising regularly. PHYSICAL EXAMINATION: CONSTITUTIONAL: GENERAL APPEARANCE: Healthy appearing patient in no distress. EYES: CONJUNCTIVAE/LIDS: Conjunctivae and lids appear normal. PUPILS: Pupils equal and normally reactive to light and accommodation. EARS, NOSE, MOUTH AND THROAT: EXTERNAL/EARS AND NOSE: Overall appearance normal with no scars, lesions or masses. EARS: Tympanic membranes shiny without retraction. Canals unremarkable. Hearing grossly normal. NOSE (AND SINUS): No abnormality of the nose or sinuses is noted. ORAL: Inspection of gums, lips, palate, and teeth normal. No scars, lesions, or masses. Oral mucosaunremarkable with non-inflamed posterior pharynx. NECK/THYROID: Trachea midline. No thyroid enlargement, tenderness, or mass. No supraclavicular or cervical adenopathy. RESPIRATORY: Clear to auscultation and percussion. Normal respiratory effort. CARDIOVASCULAR: CARDIAC: Regular rhythm. No murmurs, rubs, or gallops. ARTERIAL: Aortic pulses of normal amplitude with no bruits. EDEMA/VARICOSITIES OF EXTREMITIES: No edema or varicosities. BREAST/CHEST: Breasts normal to inspection and palpation with no chest deformity. LYMPHATICS: No lymphadenopathy in the neck, axillae, or groin. GASTROINTESTINAL: ABDOMEN: Soft, non-tender, without masses. Bowel sounds active. LIVER/SPLEEN/KIDNEY: No hepatosplenomegaly, tenderness or nodularity. Kidneys not palpable. HERNIA: No hernias are present. RECTAL: Rectal exam reveals no masses or hemorrhoids, sphincter tone is normal. STOOL/HEMOCCULT: Stool is hemoccult negative. Stool is normal. GENITOURINARY: SCROTUM/CONTENTS: Normal in appearance with no hydrocele, spermatocele, tenderness of cord, or testicular mass. PHALLUS: No lesion on glans. Shaft normal. No Peyronie's noted. PROSTATE: 1+ ENLARGED. MUSCULOSKELETAL EXAM: GAIT/STATION: Normal gait. DIGITS/NAILS: No clubbing, cyanosis, inflammation, or ischemia. HEAD AND NECK: Normal to inspection and palpation with satisfactory range of motion. Strength adequate with normal stability. SPINE/RIBS/PELVIS: No kyphosis, lordosis, full range of motion. Normal stability, strength and tone. EXTREMITIES: PE/MS/BILAT UPPER EXT No misalignment or tenderness. Full range of motion. Normal stability, strength and tone. BILATERAL LOWER EXTREMITIES: No misalignment or tenderness. Full range of motion. Normal stability,strength and tone. SKIN: SKIN: Warm, dry, no diaphoresis, no significant lesions, irritation, rashes or ulcers. No induration, obvious subcutaneous nodules or tightening. NEUROLOGIC: CRANIAL NERVES: systems software designer II-XII grossly intact. DEEP TENDON REFLEXES: Deep tendon reflexes 2+/4 and symmetrical. OFFICE PROCEDURES: EKG INTERPRETATION EKG RHYTHM: The EKG shows normal sinus rhythm. ARRHYTHMIA: The EKG shows no arrhythmia. No ischemic changes noted. ASSESSMENT/PLAN: 272.4-HYPERLIPIDEMIA ASSESSMENT: Will not change medication, continue to monitor for complications. A low cholesterol diet was encouraged. Weight loss was encouraged. Regular exercise was encouraged. MEDICATIONS: OMACOR ORAL CAPSULE CONVENTIONAL 1 GM, 2 po bid, status: NEW HISTORY, 07/06/2006. GEMFIBROZIL ORAL TABLET 600 MG, 1 po bid, status: NEW HISTORY, 07/06/2006. 401.1-HYPERTENSION ESSENTIAL BENIGN ASSESSMENT: The blood pressure remains satisfactory. Will not change medication, continue to monitor for complications. Weight loss was discussed and encouraged. MEDICATIONS: TOPROL XL ORAL TABLET 24 HR 25 MG, 1 po qd, status: NEW HISTORY, 07/06/2006. HYDROCHLOROTHIAZIDE ORAL TABLET 25 MG, 1 po qd, status: NEW HISTORY, 07/06/2006. LISINOPRIL ORAL TABLET 10 MG, 1 po qd, status: NEW HISTORY, 07/06/2006. LAB ORDERS: Order number: [id number] Test Ordered: EKG WITH INTERPRETATION AND REPORT [id number] 414.00-CORONARY ARTERY DISEASE ASSESSMENT: The patient's chest pain pattern remains stable. Will not change medication, continue to monitor for complications. V76.41-SCREEN FOR CA OF RECTUM LAB ORDERS: Order number: [id number] Test Ordered: HEMOCCULT 09946 790.21-ABNORMAL FASTING BLOOD GLUCOSE LAB ORDERS: Order number: [id number] Test Ordered: HEMOGLOBIN A1C 1814 HEALTH MAINTENANCE: LAST PROSTATE EXAM: +1 enlarged. LAST DATE COLONOSCOPY: normal. LAST DATE FOBT: neg. RETURN VISIT : Patient instructed to return in 3 months. Electronically Signed by: Magen Cabral DO on June documented in this encounter Plan of Treatment Not on file documented as of this encounter Visit Diagnoses Not on filedocumented in this encounter Additional Health Concerns Infection Onset Date Last Indicated Resolved Time R/O COVID-19 10/30/2020 10/30/2020 11/06/2020 1:16 AM HEALTH ANALYTICS CONSULTANT documented as of this encounter Care Teams Ditch Rider Relationship Specialty Start Date End Date Magen Cabral DO [address] [address] PCP - General 07/18/06 documented as of this encounter
--- OUTSIDE RECORDS SUMMARY | 2024-10-31 12:37 | XMS_ITS | Clinical Summary ---
Author Organization [facility] Address [facility] [place] [address] Care Team Providers Care Red Hat Linux Administrator Name Role Phone Unavailable Primary Care Provider Unavailabl e Social History Tobacco Use Types Packs/Day Years Used Date Smoking Tobacco: Never Assessed Sex and Gender Information Value Date Recorded Sex Assigned at Not on file Legal Sex Male 8:22 PM CDT Gender Identity Not on file Sexual Orientation Not on file Plan of Treatment Health Maintenance Due Date Last Done Comments Hepatitis C 1963 Zoster Vaccines (1 of 2) 1996 Pneumococcal Vaccine: 65+ Years (2 of 2 - PCV) 06/07/2020 06/07/2019 RSV Immunization or 60+ Years (1 - 1-dose 75+ series) 2021 COVID-19 Vaccine ( - season) 2024 06/23/2021, 12/25/2020, 11/27/2020 Influenza Adult (#1) 2024 07/13/2017, 06/18/2016, 06/02/2015, Additional history exists DTaP, Tdap and Td Vaccines (2 - Td or Tdap) 10/31/2025 10/31/2015 Meningococcal B Vaccine Aged Out No l onger eligible based on patient's age to complete this topic Meningococcal Vaccine Aged Out No jeff esha eligible based on patient's age to complete this topic RSV Immunizations Under 20 Months Aged Out No longer eligible based on patient's age to complete this topic
--- OUTSIDE RECORDS SUMMARY | 2024-10-31 12:37 | XMS_ITS | Encounter Summary ---
Author Organization [facility] Address [address] [place] [address] Care Team Providers Care Trip Motor Operator Name Role Phone Magen Cabral DO Primary Care Provider Encounter Details Date Type Department Care Team (Late st Contact Info) Description 07/06/2006 Outpatient Historical [facility] Internal Medicine [address] [place] [address] Magen Cabral DO [address] [place] [address] Social History Tobacco Use Types Packs/Day Years Used Date Smoking Tobacco: Never Assessed Sex and Gender Information Value Date Recorded Sex Assigned at Not on file Legal Sex Male 2:48 AM BLISTER RUST ERADICATOR Gender Identity Not on file Sexual Orientation Not on file documented as of this encounter Plan of Treatment Not on file documented as of this encounter Visit Diagnoses Not on filedocumented in this encounter Additional Health Concerns Infection Onset Date Last Indicated Resolved Time R/O COVID-19 10/30/2020 10/30/2020 11/06/2020 1:16 AM BLISTER RUST ERADICATOR documented as of this encounter Care Teams Trip Motor Operator Relationship Specialty Start Date End Date Magen Cabral DO [address] [place] [address] PCP - General 07/18/06 documented as of this encounter
--- OUTSIDE RECORDS SUMMARY | 2024-10-31 12:37 | XMS_ITS | Encounter Summary ---
Author Organization [employer] [facility] Address [address] [place] [address] Care Team Providers Care Public Health Program Manager Name Role Phone Magen Cabral DO Primary Care Provider Encounter Details Date Type Department Care Team (Late st Contact Info) Description 11/07/2007 Outpatient Historical [facility] Internal Medicine [address] [place] [address] Magen Cabral DO [address] [place] [address] Special Screening for Malignant Neoplasm of Prostate Social History Tobacco Use Types Packs/Day Years Used Date Smoking Tobacco: Never Assessed Sex and Gender Information Value Date Recorded Sex Assigned at Not on file Legal Sex Male 2:48 AM CERTIFIED MEDICAL ASST Gender Identity Not on file Sexual Orientation Not on file documented as of this encounter Plan of Treatment Not on file documented as of this encounter Procedures Procedure Name Priority Date/Time Associated Diagnosis Comments TSH WITH REFLEX FT4 AND FT3 Routine 11/07/2007 7:17 AM CERTIFIED MEDICAL ASST URINALYSIS WITH REFLEX CULTURE Routine 11/07/2007 7:17 AM CERTIFIED MEDICAL ASST CBC WITH DIFFERENTIAL Routine 11/07/2007 7:17 AM CERTIFIED MEDICAL ASST URINALYSIS W/REFLEX MICROSCOPIC Routine 11/07/2007 7:17 AM CERTIFIED MEDICAL ASST PSA Routine 11/07/2007 7:17 AM CERTIFIED MEDICAL ASST LIPID PANEL Routine 11/07/2007 7:17 AM CERTIFIED MEDICAL ASST COMPREHENSIVE METABOLIC PANEL Routine 11/07/2007 7:17 AM CERTIFIED MEDICAL ASST documented in this encounter Results * URINALYSIS (11/07/2007 7:17 AM CERTIFIED MEDICAL ASST) [facility] LEUKOCYTE ESTERASE UA Negative Negative [facility] SPECIFIC GRAVITY UA 1.015 1.001 - 1.035 [facility] GLUCOSE UA Negative Negative [facility] BLOOD UA Negative Negative [facility] COLOR UA Yellow [facility] NITRITE UA Negative Negative [facility] UROBILINOGEN UA <1 <=1 mg/dL [facility] PH UA 6.0 5.0 - 8.0 [facility] KETONES UA Negative Negative [facility] CLARITY UA Clear Clear [facility] BILIRUBIN UA Negative Negative [facility] PROTEIN UA Negative Negative [facility] 11/07/2007 7:17 AM CERTIFIED MEDICAL ASST 11/07/2007 11:23 AM CERTIFIED MEDICAL ASST Magen Cabral DO URINE ORDERABLES Final Result [facility] [address] [place], [place] [address] * PSA (11/07/2007 7:17 AM CERTIFIED MEDICAL ASST) [facility] PSA 0.5 0.0 - 4.0 ng/mL [facility] Comment:ansiPerformed on [employer] Modular E170 System Blood specimen (specimen) 11/07/2007 7:17 AM CERTIFIED MEDICAL ASST 11/07/2007 11:23 AM CERTIFIED MEDICAL ASST Magen Cabral DO CHEMISTRY ORDERABLES E dited [facility] [address] [place] [address] * (ABNORMAL) CBC WITH DIFFERENTIAL (11/07/2007 7:17 AM CERTIFIED MEDICAL ASST) HEMOGLOBIN 12.8(L) 13.6 - 16.5 g/dL [facility] RDW 15.0(H) 11.5 - 14.5 % [facility] WBC 5.1 4.0 - 9.8 K/uL [facility] MCH 28.8 27.2 - 32.6 pg [facility] MPV 11.2 9.3 - 12.4 fL [facility] HEMATOCRIT 38.5(L) 40.0 - 48.0 % [facility] RDW-STDEV 47.1 37.1 - 48.7 fL [facility] RBC 4.45(L) 4.50 - 5.40 M/uL [facility] MCHC 33.2 31.5 - 35.5 % [facility] MCV 86.5 82.0 - 99.0 fL [facility] PLATELETS 191 140 - 350 K/uL [facility] EOSINOPHILS 3 0 - 7 % [facility] EOSINOPHIL ABSOLUTE 0.14 0.00 - 0.70 K/uL [facility] LYMPHOCYTES 32 16 - 45 % [facility] LYMPHOCYTE ABSOLUTE 1.60 0.70 - 4.50 K/uL [facility] BASOPHILS 1 0 - 2 % [facility] BASOPHILS ABSOLUTE 0.05 0.00 - 0.20 K/uL [facility] MONOCYTES 10 3 - 13 % [facility] MONOCYTE ABSOLUTE 0.49 0.10 - 1.30 K/uL [facility] NEUTROPHILS 55 45 - 70 % [facility] NEUTROPHIL ABSOLUTE 2.77 1.90 - 7.00 K/uL [facility] Blood specimen (specimen) 11/07/2007 7:17 AM CERTIFIED MEDICAL ASST 11/07/2007 11:23 AM CERTIFIED MEDICAL ASST Magen Cabral DO HEMATOLOGY ORDERABLES Edited Performing Organization Address City/[facility] Co de Phone Number INTERFACE SYSTEM Refer to clinic/hospital department [facility] [address] [place] [address] * URINALYSIS WITH REFLEX CULTURE (11/07/2007 7:17 AM CERTIFIED MEDICAL ASST) URINE CULTURE ORDER Not indicated [facility] Comment: Criteria for a reflex culture include one or more of the following: Abnormal nitrite, leukocyte esterase, WBCs or RBCs. Lack of qualifying criteria does not exclude the possiblity of a urinary tract infection. Dilute urine, drug interference, etc. may decrease the sensitivity of the criteria analytes. Urine, clean catch 11/07/2007 7:17 AM CERTIFIED MEDICAL ASST 11/07/2007 11:23 AM CERTIFIED MEDICAL ASST Magen Cabral DO URINE ORDERABLES Final Result Performing Organization Address [facility] de Phone Number [facility] [place] [address] [place] [address] * TSH WITH REFLEX FT4 AND FT3 (11/07/2007 7:17 AM CERTIFIED MEDICAL ASST) TSH 1.64 0.27 - 4.20 uU/mL [facility] Blood specimen (specimen) 11/07/2007 7:17 AM CERTIFIED MEDICAL ASST 11/07/2007 11:23 AM CERTIFIED MEDICAL ASST Magen S Schoenwalder DO CHEMISTRY ORDERABLES E dited [facility] [address] [place] [address] * (ABNORMAL) COMPREHENSIVE METABOLIC PANEL (11/07/2007 7:17 AM CERTIFIED MEDICAL ASST) POTASSIUM 4.1 3.5 - 4.9 mmol/L [facility] TOTAL PROTEIN 7.2 6.3 - 8.6 g/dL [facility] GLUCOSE 102(H) 65 - 99 mg/dL [facility] AST 26 12 - 38 U/L [facility] BUN 20 6 - 20 mg/dL [facility] CALCIUM 9.0 8.4 - 10.2 mg/dL [facility] ALBUMIN 4.4 3.4 - 4.8 g/dL [facility] CHLORIDE 102 96 - 108 mmol/L [facility] CREATININE 1.19(H) 0.67 - 1.17 mg/dL [facility] ALT 27 0 - 41 U/L [facility] SODIUM 137 135 - 145 mmol/L [facility] ALKALINE PHOSPHATASE 58 40 - 129 U/L [facility] CO2 22 22 - 30 mmol/L [facility] BILIRUBIN TOTAL 0.3 0.2 - 1.0 mg/dL [facility] GFR, >60 >=60 mL/min/1. 7 sq meter [facility] GFR >60 >=60 mL/min/1. 7 sq meter [facility] Comment: Estimated GFR rate interpretative information for both Americans and non- Americans is available on the [facility] Intranet at: [email or web address] Select: Lab Policies and Procedures Select: Reference Ranges - GFR Blood specimen (specimen) 11/07/2007 7:17 AM CERTIFIED MEDICAL ASST 11/07/2007 11:23 AM CERTIFIED MEDICAL ASST Magen Cabral DO CHEMISTRY ORDERABLES E dited Performing Organization Address [facility] de Phone Number [facility] [address] [place] [address] * (ABNORMAL) LIPID PANEL (11/07/2007 7:17 AM CERTIFIED MEDICAL ASST) HDL 35(L) 40 - 59 mg/dL [facility] CHOLESTEROL 130 100 - 199 mg/dL [facility] CHOL/HDL RATIO 3.7 2.0 - 5.0 [facility] TRIGLYCERIDE 201(H) 10 - 149 mg/dL [facility] LDL CALCULATED 55 <=99 mg/dL [facility] LIPID PANEL COMMENT See Below [facility] Comment: The adult ATP and pediatric NCEP classifications for lipids are available on the [facility] Intranet at: [email or web address] Select: Lab Policies and Procedures,Current Select: Lipid Panel Interpretation Blood specimen (specimen) 11/07/2007 7:17 AM CERTIFIED MEDICAL ASST 11/07/2007 11:23 AM CERTIFIED MEDICAL ASST Magen Cabral DO CHEMISTRY ORDERABLES E dited Performing Organization Address City/[facility] Co de Phone Number [facility] [address] [place] [address] documented in this encounter Visit Diagnoses Diagnosis Special screening for malignant neoplasm of prostate documented in this encounter Additional Health Concerns Infection Onset Date Last Indicated Resolved Time R/O COVID-19 10/30/2020 10/30/2020 11/06/2020 1:16 AM CERTIFIED MEDICAL ASST documented as of this encounter Care Teams Public Health Program Manager Relationship Specialty Start Date End Date Magen Cabral DO [address] [place] [address] PCP - General 07/18/06 documented as of this encounter
--- OUTSIDE RECORDS SUMMARY | 2024-10-31 12:37 | XMS_ITS | Encounter Summary ---
Author Organization [facility] Address [address] [place] [address] Phone Care Team Providers Care Garden Machinery Mechanic Name Role Phone Moses Godwin DO Primary Care Provider [phone] Encounter Details Date Type Department Care Team (Latest Contact Info) Description 10/14/2024 10:00 AM CARTON AND CAN SUPPLY SUPERVISOR Procedure visit [facility] Otolaryngology [address] Medicine [address] [place] [address] [place] [address] Laura Porter Au.D. [address] [place] [address] Sensory hearing loss, bilateral (Primary Dx) Social History Tobacco Use Types Packs/Day Years Used Date Smoking Tobacco: Former Cigarettes 2 32.5 0 03/05/1964 - 1996 Smokeless Tobacco: Never Comments:I quit mainly for t he cost. My ashtray was smoking more than I was. Alcohol Use Standard Drinks/Week Comments Yes 2 (1 standard drink = 0.6 oz pure alcohol) once a month or when with family gathering or dining out Sex and Gender Information Value Date Recorded Sex Assigned at Not on file Legal Sex Male 11:52 AM CARTON AND CAN SUPPLY SUPERVISOR Gender Identity Male 10/02/2019 2:06 PM CARTON AND CAN SUPPLY SUPERVISOR Sexual Orientation Straight 06/11/2019 6: 01 PM CDT documented as of this encounter Procedure Notes * Laura Porter Au.D. - 10/14/2024 10:00 AM CST Procedures Hearing Aid (Active) Fitting Date 10/25/19 L/R/Bilateral left Make Phonak Model [employer]ia Link UP Style BTE Right serial # [id number] Loss/damage exp date 10/25/20 Battery size 675 Cochlear Implant (Active) L/R/Bilateral right Personal Fitness Trainer [employer] Internal HiRes Ultra 3D External Lakeshia Q90 (silver) Provider Dr. Desai Date of CI surgery 08/12/19 Date of IS 09/12/19 MAPS in Processor: CVM, SV, 70 IDR, SR, WB, #3 magnet, Es 14-16 disabled P1: Map 27 AUZ P2: Map 27 Stereozoom P3: Map 27 Zoomcontrol left for phone P4: Map 27 echoblock P5: Map 27 Processor Peewee Calm situation Hearing Aid Programs P1: autosound P2: Stereozoom P3: Zoom Control left for phone P4: Reverberant room SERVICES PROVIDED: Audiologic Evaluation & Counseling PROCEDURES: The patient attended the session alone. The patient reported: - Increased difficulty hearing out of left ear. - Patient reported he can no longer hear on this cell phone. His ComPilot I no longer works and cannot be repaired. He needs [employer] technology to connect direct to his phone. Audiologic Evaluation: TESTS PERFORMED: See: Comprehensive audiometric evaluation of left ear only. Patient wears CI in right ear. ASSESSMENT: Otoscopy: Right ear - clear canal Left ear - clear canal Pure tone audiometry was performed and revealed: Right: DNT Left: Moderately Severe to profound SNHL from 125-8000 Hz Speech Recognition Threshold (SRT) is in agreement with pure-tone average (BLOOD BANK SPECIALIST) and reveals: Right: DNT Left: profound loss in the ability to receive speech Word recognition testing was performed at Most Intelligible Level (MIL) using recorded NU-6 lists of a male talker: Right: DNT Left: very poor recognition Counseling of CI M90: Device Check: does not pair to his phone and current ComPilot no longer functioning and cannot be repaired. Discussed differences in technology and improvements with new processor. Patient decided to complete order form with the following choices when he talks to the carbide tool die maker: Color: silver Batteries: 4 straight silver rechargeable batteries Accessories: undecided (patient will email order form with final decisions after insurance approval) Discussed ordering process and insurance coverage. The order form will be sent by the carbide tool die maker to the upgrade order team via email. Patient was instructed to download the carbide tool die maker remote kenny prior to next appointment. Patient was notified that upgrade equipment to be shipped to the following location: CI Clinic *Patient would like a new [employer] JONES if upgrade goes through. This was briefly discussed with him today. Patient will use his current EM. PLAN/RECOMMENDATIONS: Hearing aid will be ordered if CI M90 processor goes through Patient should be scheduled for an annual audiologic examination or earlier if the patient experiences any difficulties Hearing protection in noise Counseled patient on the results of the audiologic examination and answered any questions that arose ON AND CAN SUPPLY SUPERVISOR ON AND CAN SUPPLY SUPERVISOR documented in this encounter Plan of Treatment Not on file documented as of this encounter Procedures Procedure Name Priority Date/Time Associated Diagnosis Comments AUDBASE RESULTS 10/14/2024 9:50 AM CARTON AND CAN SUPPLY SUPERVISOR documented in this encounter Results * AudBase Results (10/14/2024 9:50 AM CARTON AND CAN SUPPLY SUPERVISOR) Provider Scanning AUDIOLOGY SERVICES ORDERABLES Final Result documented in this encounter Visit Diagnoses Diagnosis Sensory hearing loss, bilateral- Primary documented in this encounter Care Teams Garden Machinery Mechanic Relationship Specialty Start Date End Date Moses Godwin DO PCP - General 12/09/16 documented as of this encounter
--- OUTSIDE RECORDS SUMMARY | 2024-10-31 12:37 | XMS_ITS | Encounter Summary ---
Author Organization [facility] Address [address] [place] [address] Care Team Providers Care Promotion Specialist Name Role Phone Magen Cabral DO Primary Care Provider Encounter Details Date Type Department Care Team (Late st Contact Info) Description 07/06/2006 Outpatient Historical [facility] Internal Medicine [address] [place] [address] Magen Cabral DO [address] [place] [address] Social History Tobacco Use Types Packs/Day Years Used Date Smoking Tobacco: Never Assessed Sex and Gender Information Value Date Recorded Sex Assigned at Not on file Legal Sex Male 2:48 AM COMPUTER BOOKKEEPER Gender Identity Not on file Sexual Orientation Not on file documented as of this encounter Plan of Treatment Not on file documented as of this encounter Visit Diagnoses Not on filedocumented in this encounter Additional Health Concerns Infection Onset Date Last Indicated Resolved Time R/O COVID-19 10/30/2020 10/30/2020 11/06/2020 1:16 AM COMPUTER BOOKKEEPER documented as of this encounter Care Teams Promotion Specialist Relationship Specialty Start Date End Date Magen Cabral DO [address] [place] [address] PCP - General 07/18/06 documented as of this encounter
--- OUTSIDE RECORDS SUMMARY | 2024-10-31 12:37 | XMS_ITS | Encounter Summary ---
Author Organization [employer] [facility] Address [address] [place] [address] Care Team Providers Care Staff Developer Name Role Phone Magen Cabral DO Primary Care Provider Encounter Details Date Type Department Care Team (Latest Contact Info) Description 10/02/2006 Outpatient Historical [facility] Internal Medicine [address] [place] [address] Magen Cabral DO [address] [place] [address] Other and Unspecified Hyperlipidemia (Primary Dx) Social History Tobacco Use Types Packs/Day Years Used Date Smoking Tobacco: Never Assessed Sex and Gender Information Value Date Recorded Sex Assigned at Not on file Legal Sex Male 2:48 AM OLD COIN DEALER Gender Identity Not on file Sexual Orientation Not on file documented as of this encounter Plan of Treatment Not on file documented as of this encounter Procedures Procedure Name Priority Date/Time Associated Diagnosis Comments LIPID PANEL Routine 10/02/2006 7:20 AM OLD COIN DEALER COMPREHENSIVE METABOLIC PANEL Routine 10/02/2006 7:20 AM OLD COIN DEALER documented in this encounter Results * (ABNORMAL) COMPREHENSIVE METABOLIC PANEL (10/02/2006 7:20 AM OLD COIN DEALER) GLUCOSE 122(H) 65 - 99 mg/dL INTERFACE SYSTEM CREATININE 1.22(H) 0.67 - 1.17 mg/dL INTERFACE SYSTEM CALCIUM 9.0 8.4 - 10.2 mg/dL INTERFACE SYSTEM ALKALINE PHOSPHATASE 68 40 - 129 U/L INTERFACE SYSTEM AST 31 12 - 38 U/L INTERFACE SYSTEM ALT 23 0 - 41 U/L INTERFACE SYSTEM TOTAL PROTEIN 7.7 6.3 - 8.6 g/dL INTERFACE SYSTEM ALBUMIN 4.8 3.4 - 4.8 g/dL INTERFACE SYSTEM BILIRUBIN TOTAL 0.5 0.2 - 1.0 mg/dL INTERFACE SYSTEM BUN 26(H) 6 - 20 mg/dL INTERFACE SYSTEM SODIUM 136 135 - 145 mmol/L INTERFACE SYSTEM POTASSIUM 3.8 3.5 - 4.9 mmol/L INTERFACE SYSTEM CHLORIDE 99 96 - 108 mmol/L INTERFACE SYSTEM CO2 27 22 - 30 mmol/L INTERFACE SYSTEM GFR, >60 >=60 mL/min/1. 7 sq meter INTERFACE SYSTEM GFR >60 >=60 mL/min/1. 7 sq meter INTERFACE SYSTEM Comment: Estimated GFR rate interpretative information for both Americans and non- Americans is available on the [facility] Intranet at: [email or web address] InfoLE[email or web address] Select: Lab Policies and Procedures Select: Reference Ranges - GFR 10/02/2006 7:20 AM OLD COIN DEALER Magen Cabral DO CHEMISTRY ORDERABLES E dited INTERFACE SYSTEM Refer to clinic/hospital department * (ABNORMAL) LIPID PANEL (10/02/2006 7:20 AM OLD COIN DEALER) CHOLESTEROL 128 100 - 199 mg/dL INTERFACE SYSTEM TRIGLYCERIDE 174(H) 10 - 149 mg/dL INTERFACE SYSTEM HDL 45 40 - 59 mg/dL INTERFACE SYSTEM CHOL/HDL RATIO 2.8 2.0 - 5.0 INTER FACE SYSTEM LDL CALCULATED 48 <=99 mg/dL INTERFACE SYSTEM LIPID PANEL COMMENT See Below INTERFACE SYSTEM Comment: The adult ATP and pediatric NCEP classifications for lipids are available on the [facility] Intranet at: [email or web address] InfoLE[email or web address] Select: Lab Policies and Procedures Select: Reference Ranges - Lipids 10/02/2006 7:20 AM OLD COIN DEALER Magen Cabral DO CHEMISTRY ORDERABLES E dited INTERFACE SYSTEM Refer to clinic/hospital department documented in this encounter Visit Diagnoses Diagnosis Other and unspecified hyperlipidemia- Primary documented in this encounter Additional Health Concerns Infection Onset Date Last Indicated Resolved Time R/O COVID-19 10/30/2020 10/30/2020 11/06/2020 1:16 AM OLD COIN DEALER documented as of this encounter Care Teams Staff Developer Relationship Specialty Start Date End Date Magen Cabral DO [address] [place] [address] PCP - General 07/18/06 documented as of this encounter
--- OUTSIDE RECORDS SUMMARY | 2024-10-31 12:37 | XMS_ITS | Encounter Summary ---
Author Organization [employer] [facility] Address [address] [place] [address] Care Team Providers Care Cad Manager Name Role Phone Magen Cabral DO Primary Care Provider Encounter Details Date Type Department Care Team (Late st Contact Info) Description 07/06/2006 Outpatient Historical [facility] Internal Medicine [address] [place] [address] Magen Cabral DO [address] [place] [address] Social History Tobacco Use Types Packs/Day Years Used Date Smoking Tobacco: Never Assessed Sex and Gender Information Value Date Recorded Sex Assigned at Not on file Legal Sex Male 2:48 AM MEDIATION COMMISSIONER Gender Identity Not on file Sexual Orientation Not on file documented as of this encounter Plan of Treatment Not on file documented as of this encounter Visit Diagnoses Not on filedocumented in this encounter Additional Health Concerns Infection Onset Date Last Indicated Resolved Time R/O COVID-19 10/30/2020 10/30/2020 11/06/2020 1:16 AM MEDIATION COMMISSIONER documented as of this encounter Care Teams Cad Manager Relationship Specialty Start Date End Date Magen Cabral DO [address] [place] [address] PCP - General 07/18/06 documented as of this encounter
--- OUTSIDE RECORDS SUMMARY | 2024-10-31 12:37 | XMS_ITS | Encounter Summary ---
Author Organization [employer] [facility] Address [address] [place] [address] Care Team Providers Care Entry Operator Name Role Phone Magen Cabral DO Primary Care Provider Encounter Details Date Type Department Care Team (Late st Contact Info) Description 10/05/1998 Outpatient Historical [facility] ShuffJohn MD [address] [place] [address] Unspecified hearing loss (Primary Dx) Social History Tobacco Use Types Packs/Day Years Used Date Smoking Tobacco: Never Assessed Sex and Gender Information Value Date Recorded Sex Assigned at Not on file Legal Sex Male 2:48 AM FIRE RANGE TECHNICIAN Gender Identity Not on file Sexual Orientation Not on file documented as of this encounter Plan of Treatment Not on file documented as of this encounter Visit Diagnoses Diagnosis Unspecified hearing loss- Primary documented in this encounter Additional Health Concerns Infection Onset Date Last Indicated Resolved Time R/O COVID-19 10/30/2020 10/30/2020 11/06/2020 1:16 AM FIRE RANGE TECHNICIAN documented as of this encounter Care Teams Entry Operator Relationship Specialty Start Date End Date Magen Cabral DO [address] [place] [address] PCP - General 07/18/06 documented as of this encounter
--- OUTSIDE RECORDS SUMMARY | 2024-10-31 12:37 | XMS_ITS | Clinical Summary ---
Author Organization [facility] [address] Address [address] [place] [address] Care Team Providers Care Granulator Operator Name Role Phone Moses Godwin DO Primary Care Provider [phone] Allergies No known active allergies Medications aspirin [...] 08/02/2019 Assessment & Plan (08/02/2019 1:36 PM CUSTOMER CARE SPECIALIST): Right fungal OE. Ear cleaned. Clotrimazole drops. 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 Check MRI given duration [...] after surgery. Coronary artery disease invo lving nooksack heart without angina pectoris 06/15/2018 Overview (06/15/2018): Added automatically from request for surgery [id number] DANIEL (dyspnea on exertion) 03/26/2018 S/P coronary [...] stent Dyslipidemia 11/10/2014 11/08/2021 Overview (12/15/2016): Dyslipidemia Encounters Date Type Department Care Team Description 10/14/2024 10:00 AM CUSTOMER CARE SPECIALIST Procedure visit [facility] Otolaryngology [address] 11th [place] [address] [place] [address] Laura Porter Au.D. 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 Family History Medical History Relation Name Comments Diabetes Brother Gary English Diabetes me llitus; Heart attack Brother Gary Christiano Veeter Heart disease Brother Gary Christiano [employer]eter Kidney disease Brother Gary Christiano English Heart failure Father Congestive hea rt failure; Alzheimer's disease Mother Yenny Casillas er Alzheimer's disease; Heart attack Mother Yenny English Myoc ardial infarction; Hypertension Mother Yenny English Hype rtension; Memory loss Mother Yenny English Relation Name Status Comments Brother Gary English Father Mother Yenny English Social History Tobacco Use Types Packs/Day Years [...] on file Legal Sex Male 11:52 AM CUSTOMER CARE SPECIALIST Gender Identity Male 10/02/2019 2:06 PM CUSTOMER CARE SPECIALIST Sexual Orientation Straight 06/11/2019 6: 01 PM CDT Obstetrics History Last Filed Vital Signs Vital Sign Reading Time Taken Comments Blood Pressure 124/64 06/26/2024 9:40 AM CDT Pulse 76 06/26/2024 9:40 AM CDT Temperature 36.6 C (97.9 F) 08/12/2019 5:50 PM CUSTOMER CARE SPECIALIST Respiratory Rate 18 08/12/2019 6:30 PM CUSTOMER CARE SPECIALIST Oxygen Saturation 96% 06/26/2024 9:40 AM CDT Inhaled Oxygen Concentration - - Weight 93 kg (205 lb) 06/26/2024 9:40 AM CDT Height 177.8 cm (5' 10 ) 06/26/2024 9:40 AM CDT Body Mass Index 29.41 06/26/2024 9:40 AM CDT Plan of Treatment Health Maintenance Due Date Last Done Comments Depression Screening 1946 Fall Risk Assessment 1946 Hepatitis C Screening 1946 Hepatitis B Screening 1964 Zoster Vaccine (1 of 2) 1996 Abdominal Aortic Aneurysm (A AA) Screen 2011 Well Visit 65+ 2011 Influenza Vaccine (#1) 2024 , 07/13/2017, 06/18/2016, Additional history exists DTaP/Tdap/Td Vaccine (2 - Td or Tdap) 10/31/2025 10/31/2015 Pneumococcal vaccine 65+ Completed 06/07/2019, 11/10 Medical Devices Implanted Type Area Prospecting Driller Helper Device Identifier Shelf Expiration Date Model / Serial / Lot [employer] Ci-1601-04 Storelift Ultra Hifocus 3d Mid Ashley Electrode Implant Cochlear - [id number] - [id number] Implanted:Qty: 1 on 08/12/2019 by Destin Mas MD at [facility] Medicine Right: Ear [employer] [id number] 01/08/2022 CI-1601-04 / [id number] / Procedures Procedure Name Priority Date/Time Associated Diagnosis Comments AUDBASE RESULTS 10/14/2024 9:50 AM CUSTOMER CARE SPECIALIST from Last 3 Months Results * AudBase Results (10/14/2024 9:50 AM CUSTOMER CARE SPECIALIST) Provider Scanning AUDIOLOGY SERVICES ORDERABLES Final Result from Last 3 Months Insurance MEDICARE [facility] Address: [address] [address] [place] [address] [facility] Address: [address] [address] [place] [address] [facility] MEDIC[facility] SOLUTIONS Advance Directives For more information, please contact: [phone] Documents on File Type Date Recorded Patient Customer Advisor Specialist Expl anation ADVANCE DIRECTIVE 08/24/2018 3:22 PM * Full Code (Latest Code Status on File) Date Activated Date Inactivated Comments 08/17/2018 4:22 PM 08/23/2018 5:06 PM * Full Code Date Activated Date Inactivated Comments 07/17/2018 10:33 AM 07/17/2018 9:22 PM Care Teams Granulator Operator Relationship Specialty Start Date End Date Moses Godwin DO PCP - General 12/09/16
--- OUTSIDE RECORDS SUMMARY | 2024-10-31 12:37 | XMS_ITS | Encounter Summary ---
Author Organization [facility] Address [address] [place] [address] Care Team Providers Care Manager Safe Name Role Phone Magen Cabral DO Primary Care Provider Encounter Details Date Type Department Care Team (Late st Contact Info) Description 07/19/2006 Orders Only [facility] Internal Medicine [address] [place] [address] Magen Cabral DO [address] [place] [address] Social History Tobacco Use Types Packs/Day Years Used Date Smoking Tobacco: Never Assessed Sex and Gender Information Value Date Recorded Sex Assigned at Not on file Legal Sex Male 2:48 AM RESTAURANT CREW Gender Identity Not on file Sexual Orientation Not on file documented as of this encounter Progress Notes * Magen Cabral DO - 06/24/2008 11:41 PM CDT TIME:10:07 am PATIENT`S HOME PHONE: PATIENT`S WORK PHONE: PATIENT`S INSURANCE: [facility] WHO TOOK THE CALL: Kilo Allen GENERAL INFORMATION ALTERNATIVE PHONE NUMBER: [phone] WHO CALLED: Patient called.TO GIVE US HIS PHARMACY NUMBER [phone] PLS CALL PT WITH RESULTS OF LAB WORK//PB SECTION 1: DOCTOR`S RESPONSE: humphrey 07/19/06 at 12:50 pm MEDICATIONS: Call in to Pharmacy TETRACYCLINE HCL ORAL TABLET 250 MG, 1 po bid, 180 Dispensed, 3 Fills, 90 Duration/Days Supply, status: CONTINUED, 07/19/2006. TEMAZEPAM ORAL CAPSULE CONVENTIONAL 30 MG, PRN at hs, 90 Dispensed, 3 Fills, 90 Duration/Days Supply, status: CONTINUED, 07/19/2006. LISINOPRIL ORAL TABLET 10 MG, 1 po qd, 90 Dispensed, 3 Fills, 90 Duration/Days Supply, status: CONTINUED, 07/19/2006. HYDROCHLOROTHIAZIDE ORAL TABLET 25 MG, 1 po qd, 90 Dispensed, 3 Fills, 90 Duration/Days Supply, status: CONTINUED, 07/19/2006. TOPROL XL ORAL TABLET 24 HR 25 MG, 1 po qd, 90 Dispensed, 3 Fills, 90 Duration/Days Supply, status:CONTINUED, 07/19/2006. OMACOR ORAL CAPSULE CONVENTIONAL 1 GM, 2 po bid, 360 Dispensed, 3 Fills, 90 Duration/Days Supply, status: CONTINUED, 07/19/2006. NIASPAN ORAL TABLET CONTROLLED RELEASE 500 MG, 1 po qd, 90 Dispensed, 3 Fills, 90 Duration/Days Supply, status: CONTINUED, 07/19/2006. FINAL ACTION: browpp 07/19/06 at 02:10 pm Called pharmacy at 07/19/06 at 02:10 pm. called in to pharmacy to David/sammi Electronically Signed by: Kilo Allen on Wednesday, July 19, 2006 documented in this encounter Plan of Treatment Not on file documented as of this encounter Visit Diagnoses Not on filedocumented in this encounter Additional Health Concerns Infection Onset Date Last Indicated Resolved Time R/O COVID-19 10/30/2020 10/30/2020 11/06/2020 1:16 AM RESTAURANT CREW documented as of this encounter Care Teams Manager Safe Relationship Specialty Start Date End Date Magen Cabral DO [address] [facility] [address] [place] [address] PCP - General 07/18/06 documented as of this encounter
--- OUTSIDE RECORDS SUMMARY | 2024-10-31 12:38 | XMS_ITS | Encounter Summary ---
Author Organization [facility] Address [address] [place] [address] Care Team Providers Care Business Objects Consultant Name Role Phone Magen Cabral DO Primary Care Provider Encounter Details Date Type Department Care Team (Late st Contact Info) Description 10/23/2006 Outpatient Historical [facility] Internal Medicine [address] [place] [address] Magen Cabral DO [address] [place] [address] Social History Tobacco Use Types Packs/Day Years Used Date Smoking Tobacco: Never Assessed Sex and Gender Information Value Date Recorded Sex Assigned at Not on file Legal Sex Male 2:48 AM WOOD FLOOR REFINISHER Gender Identity Not on file Sexual Orientation Not on file documented as of this encounter Last Filed Vital Signs Vital Sign Reading Time Taken Comments Blood Pressure 122/84 10/23/2006 10:15 AM WOOD FLOOR REFINISHER Pulse - - Temperature - - Respiratory Rate - - Oxygen Saturation - - Inhaled Oxygen Concentration - - Weight 94.8 kg (209 lb) 10/23/2006 10:15 AM WOOD FLOOR REFINISHER Height - - Body Mass Index - - documented in this encounter Plan of Treatment Not on file documented as of this encounter Visit Diagnoses Not on filedocumented in this encounter Additional Health Concerns Infection Onset Date Last Indicated Resolved Time R/O COVID-19 10/30/2020 10/30/2020 11/06/2020 1:16 AM WOOD FLOOR REFINISHER documented as of this encounter Care Teams Business Objects Consultant Relationship Specialty Start Date End Date Magen Cabral DO [address] [place] [address] PCP - General 07/18/06 documented as of this encounter
--- OUTSIDE RECORDS SUMMARY | 2024-10-31 12:38 | XMS_ITS | Encounter Summary ---
Author Organization [facility] Address [address] [place] [address] Care Team Providers Care Patient Registrar Name Role Phone Magen Cabral DO Primary Care Provider Encounter Details Date Type Department Care Team (Late st Contact Info) Description 10/18/2006 Orders Only [facility] Internal Medicine [address] [place] [address] Magen Cabral DO [address] [place] [address] Social History Tobacco Use Types Packs/Day Years Used Date Smoking Tobacco: Never Assessed Sex and Gender Information Value Date Recorded Sex Assigned at Not on file Legal Sex Male 2:48 AM MERCHANDISE STOCKER Gender Identity Not on file Sexual Orientation Not on file documented as of this encounter Progress Notes * Magen Cabral DO - 02/01/2008 5:31 PM CDT TIME:12:43 pm PATIENT`S HOME PHONE: PATIENT`S WORK PHONE: PATIENT`S INSURANCE: [facility] WHO TOOK THE CALL: Kilo Allen GENERAL INFORMATION LAST VISIT: 10-06-06 ALTERNATIVE PHONE NUMBER: [phone] WHO CALLED: Patient called. PT NEED REFILLS MAILED EXCEPT GEMFIBROZIL HE WOULD LIKE ME TO CALL THATONE IN TO PHARMACY///PB CURRENT ALLERGY LIST: [facility] PHARMACY NUMBER: [phone] SECTION 1: REQUESTED ACTION browjaguar 10/18/06 at 12:46 pm: MEDICATION REQUEST: MEDICATIONS: TOPROL XL ORAL TABLET 24 HR 25 MG, 1 po qd, 90 Dispensed, 3 Fills, 90 Duration/Days Supply, status:CONTINUED, 07/19/2006. GEMFIBROZIL ORAL TABLET 600 MG, 1 po bid, 60 Dispensed, 30 Duration/Days Supply, status: CONTINUED,09/14/2006. TETRACYCLINE HCL ORAL TABLET 250 MG, 1 po bid, 180 Dispensed, 3 Fills, 90 Duration/Days Supply, status: CONTINUED, 07/19/2006. OMACOR ORAL CAPSULE CONVENTIONAL 1 GM, [...] Fills, 90 Duration/Days Supply, status: CONTINUED, 07/19/2006. ///PB SECTION 3: ok to rf all FINAL ACTION: winifred 10/18/06 at 01:32 pm MAILED TO PT///PB Electronically Signed by: Kilo Allen on Wednesday, October 18, 2006 documented in this encounter Plan of Treatment Not on file documented as of this encounter Visit Diagnoses Not on filedocumented in this encounter Additional Health Concerns Infection Onset Date Last Indicated Resolved Time R/O COVID-19 10/30/2020 10/30/2020 11/06/2020 1:16 AM MERCHANDISE STOCKER documented as of this encounter Care Teams Patient Registrar Relationship Specialty Start Date End Date Magen Cabral DO [address] [address] PCP - General 07/18/06 documented as of this encounter
--- OUTSIDE RECORDS SUMMARY | 2024-10-31 12:38 | XMS_ITS | Encounter Summary ---
Author Organization [facility] Address [address] [place] [address] Care Team Providers Care Chemistry Quality Control Technician Name Role Phone Magen Cabral DO Primary Care Provider Encounter Details Date Type Department Care Team (Late st Contact Info) Description 10/23/2006 Orders Only [facility] Internal Medicine [address] [place] [address] Magen Cabral DO [address] [place] [address] Social History Tobacco Use Types Packs/Day Years Used Date Smoking Tobacco: Never Assessed Sex and Gender Information Value Date Recorded Sex Assigned at Not on file Legal Sex Male 2:48 AM RELAY SHOP SUPERVISOR Gender Identity Not on file Sexual Orientation Not on file documented as of this encounter Progress Notes * Magen Cabral DO - 02/01/2008 6:54 PM CDT BLOOD PRESSURE: 122/84 Right Arm Sitting WEIGHT: 209lbs NURSE NAME: Juan Miguel Ann Marie ALLERGIES: No known drug allergies. MEDICATIONS: Medication list current. CHIEF COMPLAINT upper (L) arm pain x 1 month + HISTORY: HISTORY OF PRESENT ILLNESS: PAIN: Pain noted in the left arm, upper left arm. The onset was approximately 1 month ago. There was no bruising. No erythema noted. No immediate swelling occurred. The pain occurred for unknown reasons. The symptoms have been worsening recently. The pain is described as aching, dull, sharp. The pain is described as occurring at night. No stiffness is present. No weakness present. The patient notes limitation of normal daily activities occassionally. Symptoms are not aggravated by climbing, areaggravated by carrying, are aggravated by extension. Pain modifying factors not noted. CURRENT PROBLEM LIST: 272.4 HYPERLIPIDEMIA 401.1 HYPERTENSION ESSENTIAL BENIGN 414.00 CORONARY ARTERY DISEASE 780.79 FATIGUE 790.21 ABNORMAL FASTING BLOOD GLUCOSE V16.3 FAMILY HISTORY OF CARCINOMA BREAST V17.3 FAMILY HISTORY OF ISCHEMIC HEART DISEASE V18.0 FAMILY HISTORY OF DIABETES MELLITUS V76.41 SCREEN FOR CA OF RECTUM V76.44 SCREEN FOR CA OF PROSTATE CURRENT MEDICATION LIST: GEMFIBROZIL ORAL TABLET 600 MG, 1 po bid TETRACYCLINE HCL ORAL TABLET 250 MG, 1 po bid HYDROCHLOROTHIAZIDE ORAL TABLET 25 MG, 1 po qd TEMAZEPAM ORAL CAPSULE CONVENTIONAL 30 MG, PRN at hs TOPROL XL ORAL TABLET 24 HR 25 MG, 1 po qd LISINOPRIL ORAL TABLET 10 MG, 1 po qd OMACOR ORAL CAPSULE CONVENTIONAL 1 GM, 2 po bid NITROQUICK SUBLINGUAL TABLET SUBLINGUAL 0.4 MG, PRN CURRENT ALLERGY LIST: NKDA ROS: GENERAL: Normal activity and energy level, no change in appetite. No major weight gain or loss. No malaise, chills, fever, diaphoresis. CARDIAC: No chest pain, palpitations, orthopnea, dyspnea on exertion, or paroxysmal nocturnal dyspnea. RESPIRATORY: No dyspnea, cough, hemoptysis or wheezing. MUSCULOSKELETAL: See HISTORY OF PRESENT ILLNESS. SOCIAL HISTORY: TOBACCO USE: Has no significant smoking history. PHYSICAL EXAMINATION: CONSTITUTIONAL: GENERAL APPEARANCE: Healthy appearing patient in no distress. EARS, NOSE, MOUTH AND THROAT: ORAL: NECK/THYROID: Trachea midline. No thyroid enlargement, tenderness, or mass. No supraclavicular or cervical adenopathy. RESPIRATORY: Clear to auscultation and percussion. Normal respiratory effort. CARDIOVASCULAR: CARDIAC: Regular rhythm. No murmurs, rubs, or gallops. MUSCULOSKELETAL EXAM: EXTREMITIES: LEFT UPPER: No shoulder swelling, SUBACROMIUM BURSA TENDERNESS NOTED, full shoulder flexion, REDUCED SHOULDER EXTERNAL ROTATION, REDUCED SHOULDER INTERNAL ROTATION, full shoulder abduction, full shoulder adduction, normal stability, normal strength and tone. ASSESSMENT/PLAN: 726.11-PERIPHERAL ENTHESOPATHIES AND ALLIED SYNDROMES ASSESSMENT: The symptoms are unchanged. Clinical guidelines reviewed. Protocol reviewed. Recommended treatments include: activity restriction. Will start medication for better control. MEDICATIONS: NAPROSYN ORAL TABLET 500 MG, 1 Two Times A Day, 60 Dispensed, 30 Duration/Days Supply, status: NEW PRESCRIPTION, 10/23/2006. RETURN VISIT : Return as planned. Electronically Signed by: Magen Cabral DO on Monday, October 23, 2006 documented in this encounter Plan of Treatment Not on file documented as of this encounter Visit Diagnoses Not on filedocumented in this encounter Additional Health Concerns Infection Onset Date Last Indicated Resolved Time R/O COVID-19 10/30/2020 10/30/2020 11/06/2020 1:16 AM RELAY SHOP SUPERVISOR documented as of this encounter Care Teams Chemistry Quality Control Technician Relationship Specialty Start Date End Date Magen Cabral DO [address] [place] [address] PCP - General 07/18/06 documented as of this encounter
--- OUTSIDE RECORDS SUMMARY | 2024-10-31 12:38 | XMS_ITS | Encounter Summary ---
Author Organization [facility] Address [address] [place] [address] Care Team Providers Care Account Leader Name Role Phone Magen Cabral DO Primary Care Provider Encounter Details Date Type Department Care Team (Latest Contact Info) Description 12/27/2006 Outpatient Historical [facility] Internal Medicine [address] [place] [address] Magen Cabral DO [address] [place] [address] Other and Unspecified Hyperlipidemia (Primary Dx) Social History Tobacco Use Types Packs/Day Years Used Date Smoking Tobacco: Never Assessed Sex and Gender Information Value Date Recorded Sex Assigned at Not on file Legal Sex Male 2:48 AM ASSISTANT ENGINEER Gender Identity Not on file Sexual Orientation Not on file documented as of this encounter Plan of Treatment Not on file documented as of this encounter Procedures Procedure Name Priority Date/Time Associated Diagnosis Comments LIPID PANEL Routine 12/27/2006 7:12 AM CDT COMPREHENSIVE METABOLIC PANEL Routine 12/27/2006 7:12 AM CDT documented in this encounter Results * (ABNORMAL) COMPREHENSIVE METABOLIC PANEL (12/27/2006 7:12 AM CDT) GLUCOSE 120(H) 65 - 99 mg/dL INTERFACE SYSTEM CREATININE 1.36(H) 0.67 - 1.17 mg/dL INTERFACE SYSTEM CALCIUM 9.3 8.4 - 10.2 mg/dL INTERFACE SYSTEM ALKALINE PHOSPHATASE 72 40 - 129 U/L INTERFACE SYSTEM AST 23 12 - 38 U/L INTERFACE SYSTEM ALT 26 0 - 41 U/L INTERFACE SYSTEM TOTAL PROTEIN 8.2 6.3 - 8.6 g/dL INTERFACE SYSTEM ALBUMIN 5.1(H) 3.4 - 4.8 g/dL INTERFACE SYSTEM BILIRUBIN TOTAL 0.5 0.2 - 1.0 mg/dL INTERFACE SYSTEM BUN 24(H) 6 - 20 mg/dL INTERFACE SYSTEM SODIUM 138 135 - 145 mmol/L INTERFACE SYSTEM POTASSIUM 4.5 3.5 - 4.9 mmol/L INTERFACE SYSTEM CHLORIDE 100 96 - 108 mmol/L INTERFACE SYSTEM CO2 26 22 - 30 mmol/L INTERFACE SYSTEM GFR, >60 >=60 mL/min/1. 7 sq meter INTERFACE SYSTEM GFR 53(L) >=60 mL/min/1. 7 sq meter INTERFACE SYSTEM Comment: Estimated GFR rate interpretative information for both Americans and non- Americans is available on the [facility] Intranet at: [email or web address] Select: Lab Policies and Procedures Select: Reference Ranges - GFR 12/27/2006 7:12 AM CDT Magen Cabral DO CHEMISTRY ORDERABLES E dited INTERFACE SYSTEM Refer to clinic/hospital department * (ABNORMAL) LIPID PANEL (12/27/2006 7:12 AM CDT) CHOLESTEROL 144 100 - 199 mg/dL INTERFACE SYSTEM TRIGLYCERIDE 194(H) 10 - 149 mg/dL INTERFACE SYSTEM HDL 44 40 - 59 mg/dL INTERFACE SYSTEM CHOL/HDL RATIO 3.3 2.0 - 5.0 INTER FACE SYSTEM LDL CALCULATED 61 <=99 mg/dL INTERFACE SYSTEM LIPID PANEL COMMENT See Below INTERFACE SYSTEM Comment: The adult ATP and pediatric NCEP classifications for lipids are available on the [facility] Perfect Memoryet at: [email or web address] Select: Lab Policies and Procedures Select: Reference Ranges - Lipids 12/27/2006 7:12 AM CDT Magen Cabral DO CHEMISTRY ORDERABLES E dited INTERFACE SYSTEM Refer to clinic/hospital department documented in this encounter Visit Diagnoses Diagnosis Other and unspecified hyperlipidemia- Primary documented in this encounter Additional Health Concerns Infection Onset Date Last Indicated Resolved Time R/O COVID-19 10/30/2020 10/30/2020 11/06/2020 1:16 AM ASSISTANT ENGINEER documented as of this encounter Care Teams Account Leader Relationship Specialty Start Date End Date Magen Cabral, [address] [id number] PCP - General 07/18/06 documented as of this encounter
--- OUTSIDE RECORDS SUMMARY | 2024-10-31 12:38 | XMS_ITS | Encounter Summary ---
Author Organization [facility] Address [address] [place] [address] Care Team Providers Care Hand Etcher Helper Name Role Phone Magen Cabral DO Primary Care Provider Encounter Details Date Type Department Care Team (Latest Contact Info) Description 05/14/2008 Outpatient [facility] [address] [place] [address] Magen Cabral DO [address] [place] [address] Other and Unspecified Hyperlipidemia Social History Tobacco Use Types Packs/Day Years Used Date Smoking Tobacco: Never Assessed Sex and Gender Information Value Date Recorded Sex Assigned at Not on file Legal Sex Male 2:48 AM ENGINEERING INSTRUCTOR Gender Identity Not on file Sexual Orientation Not on file documented as of this encounter Plan of Treatment Not on file documented as of this encounter Visit Diagnoses Diagnosis Other and unspecified hyperlipidemia documented in this encounter Additional Health Concerns Infection Onset Date Last Indicated Resolved Time R/O COVID-19 10/30/2020 10/30/2020 11/06/2020 1:16 AM ENGINEERING INSTRUCTOR documented as of this encounter Care Teams Hand Etcher Helper Relationship Specialty Start Date End Date Magen Cabral DO [address] [place] [address] PCP - General 07/18/06 documented as of this encounter
--- OUTSIDE RECORDS SUMMARY | 2024-10-31 12:38 | XMS_ITS | Encounter Summary ---
Author Organization [facility] Address [address] [place] [address] Care Team Providers Care Seed Mill Superintendent Name Role Phone Magen Cabral DO Primary Care Provider Encounter Details Date Type Department Care Team (Late st Contact Info) Description 11/16/2007 Outpatient Historical [facility] Internal Medicine [address] [place] [address] Magen Cabral DO [address] [place] [address] Social History Tobacco Use Types Packs/Day Years Used Date Smoking Tobacco: Never Assessed Sex and Gender Information Value Date Recorded Sex Assigned at Not on file Legal Sex Male 2:48 AM DEAN FOR STUDENT AFFAIRS Gender Identity Not on file Sexual Orientation Not on file documented as of this encounter Plan of Treatment Not on file documented as of this encounter Visit Diagnoses Not on filedocumented in this encounter Additional Health Concerns Infection Onset Date Last Indicated Resolved Time R/O COVID-19 10/30/2020 10/30/2020 11/06/2020 1:16 AM DEAN FOR STUDENT AFFAIRS documented as of this encounter Care Teams Seed Mill Superintendent Relationship Specialty Start Date End Date Magen Cabral DO [address] [place] [address] PCP - General 07/18/06 documented as of this encounter
--- OUTSIDE RECORDS SUMMARY | 2024-10-31 12:38 | XMS_ITS | Encounter Summary ---
Author Organization [facility] Address 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 [address] [email or web address] Study Patient: Tanvir English MRN: Study ID: Gender: Erika : 1945 Age: 62 years Race: 1 Room: Bed: Height: Study Date: November 23, 2007 Patient status: Outpatient Weight: Access. #: [id number] POC: Ordering: Jacqueline Attending MD: Jacqueline Admitting MD: Jacqueline Study Conclusions: SUMMARY - Stress results : Duration of exercise was 6 min and 30 sec. Functional capacity was slightly decreased (20% to 30%). Target heart rate was achieved. There was no chest pain during stress. The stress ECG was negative for ischemia. IMPRESSIONS - Normal study after maximal exercise. Nuclear imaging performed. Report to follow. History and indications - Evaluation of known coronary artery disease. HISTORY - Prior cardiovascular procedures: percutaneous transcoronary angioplasty. REST ECG - Normal baseline ECG. Stress results Dawit protocol Baseline HR bpm: 73 SBP mmH DBP mmH Symptoms: none ST change: none Rhythm/conduct: NSR, no ectopy Peak HR bpm: 140 SBP mmH DBP mmH Symptoms: severe dyspnea ST change: none Rhythm/conduct: NSR, no ectopy Recovery 1 HR bpm: 106 SBP mmH DBP mmH Symptoms: none ST change: none Rhythm/conduct: NSR, no ectopy STRESS RESULTS - Duration of exercise was 6 min and 30 sec. - The patient exercised to protocol stage 3. - Maximal work rate was 7 METs. - Functional capacity was slightly decreased (20% to 30%). - Maximal heart rate during stress was 140 bpm ( 88 % of maximal predicted heart rate). - The heart rate response to stress was normal. - There was normal resting blood pressure with an appropriate response to stress. - The rate-pressure product for the peak heart rate and blood pressure was [address]. - There was no chest pain during stress. - The stress test was terminated due to severe dyspnea. - There were no stress arrhythmias or conduction abnormalities. - The stress ECG was negative for ischemia. Prepared and Electronically Authenticated Maged Riley MD Confirmed November 23, 2007 08:40:31 Procedure Note Provider, Historical - 11/23/2007 [address] [address] [place] [address] [email or web address] Stress Study Patient: Tanvir English MRN: Study ID: Gender: M : 1945 Age: 62 years Race: 1 Room: Bed: Height: Study Date: November 23, 2007 Patient status: Outpatient Weight: Access. #: [id number] POC: Ordering: Jacqueline Attending MD: Jacqueline Admitting MD: Jacqueline Study Conclusions: SUMMARY - Stress results : Duration of exercise was 6 min and 30 sec.Functional capacity was slightly decreased (20% to 30%). Target heart rate was achieved. There was no chest pain during stress. The stress ECG was negative for ischemia. IMPRESSIONS - Normal study after maximal exercise. Nuclear imaging performed.Report to follow. History and indications - Evaluation of known coronary artery disease. HISTORY - Prior cardiovascular procedures: percutaneous transcoronaryangioplasty. REST ECG - Normal baseline ECG. Stress results Dawit protocol Baseline HR bpm: 73 SBP mmH DBP mmH Symptoms: none ST change: none Rhythm/conduct: NSR, no ectopy Peak HR bpm: 140 SBP mmH DBP mmH Symptoms: severe dyspnea ST change: none Rhythm/conduct: NSR, no ectopy Recovery 1 HR bpm: 106 SBP mmH DBP mmH Symptoms: none ST change: none Rhythm/conduct: NSR, no ectopy STRESS RESULTS - Duration of exercise was 6 min and 30 sec. - The patient exercised to protocol stage 3. - Maximal work rate was 7 METs. - Functional capacity was slightly decreased (20% to 30%). - Maximal heart rate during stress was 140 bpm ( 88 % of maximalpredicted heart rate). - The heart rate response to stress was normal. - There was normal resting blood pressure with an appropriate responseto stress. - The rate-pressure product for the peak heart rate and blood pressurewas 31126. - There was no chest pain during stress. - The stress test was terminated due to severe dyspnea. - There were no stress arrhythmias or conduction abnormalities. - The stress ECG was negative for ischemia. Prepared and Electronically Authenticated Maged Riley MD Confirmed November 23, 2007 08:40:31 us Magen Marcelo DO [place] ORDERABLES Final Result Performing Organization Address City/State/[facility] Co de Phone Number INTERFACE SYSTEM Refer to clinic/hospital department * NM MYOCARDIAL PERFUSION EF (11/23/2007 7:10 AM CDT) 11/23/2007 7:10 AM CDT Narrative INTERFACE SYSTEM - 11/23/2007 6:15 PM CDT [facility] [address] [place], [place] [address] Admit Date: 11/23/2007 TANVIR ENGLISH Sex: Erika Admit Prov: MAGEN MARCELO Date: 1945 Primary Care Prov: MAGEN MARCELO; CMRN: [id number] JINA EUCEDA SSN: [id number] Room: COUNT INCLUDES THE [facility] Ordering Prov: N/A Accession Number: [id number] Interpretation Date of Procedure: 11/23/2007 Procedure Type: 1 Day Exercise Stress Myocardial Perfusion Study Clinical Indication: 62-year-old male with history of coronary disease. He reports a history of myocardial infarction and undergoing PCI. Medications: Lisinopril metoprolol HCTZ Tricor aspirin Exercise Stress Procedure: The patient exercised for 6 minutes and 30 seconds on a Dawit protocol, achieving an estimated workload of 7 METS. The resting heart rate was 77 bpm, and increased to 140 bpm at peak exercise, which was 88 % of the predicted maximum heart rate. The resting blood pressure was 129 / 75 and 165 / 86 at peak exercise, demonstrating a normal response to exercise. Exercise was terminated due to shortness of breath. ECG: NSR. Normal tracing. Less than [address] segment depression developed in the inferior and lateral leads during treadmill exercise which did not meet diagnostic criteria for myocardial ischemia. There were PVCs. Nuclear Imaging Protocol: Myocardial perfusion imaging was performed at rest approximately 60 minutes following the intravenous injection of 11 mCi TC99m tetrofosmin. At peak exercise, the patient was injected intravenously with 42 mCi TC99m tetrofosmin and exercise was continued for 2 minutes. Gated post-stress tomographic imaging was performed approximately 30 minutes later in same manner. SPECT reconstruction was performed in the short, vertical long and horizontal long axis views in both rest and stress image sets. Findings: There is normal perfusion to all myocardial segments during both stress and rest imaging. There is no ischemia. Gated SPECT examination reveals normal left ventricular cavity size. There is normal left ventricular wall motion. LVEF 72 %. Impression: 1. Normal myocardial perfusion study. No ischemia. 2. Normal gated SPECT examination. Normal left ventricular wall motion. LVEF 72 %. 3. No ECG changes diagnostic of myocardial ischemia developed during treadmill exercise. 4. Fair exercise capacity. 5. The overall quality of the study is good. 6. No prior study available for comparison. Recommendations: Clinical correlation . Dictated by: GLADIS ASHTON 11/23/2007 18:06 Electronically signed by: GLADIS ASHTON 11/23/2007 18:15 Procedure Note Gladis Ashton MD - 11/23/2007 [facility] [address] [place], [place] [address] Admit Date: 11/23/2007 ABHISHEKTANVIR COON Sex: M Admit Prov: MAGEN MARCELO Date: 1945 Primary Care Prov: MAGEN MARCELO; CMRN: [id number] CATHRYNTIMOTHY MAKTatum James N: [id number] Room: COUNT INCLUDES THE [facility] Ordering Prov: N/A Interpretation Date of Procedure: 11/23/2007 Procedure Type: 1 Day Exercise Stress Myocardial Perfusion Study Clinical Indication: 62-year-old male with history of coronarydisease. He reports a history of myocardial infarction and undergoing PCI. Medications: Lisinopril metoprolol HCTZ Tricor aspirin Exercise Stress Procedure: The patient exercised for 6 minutes and 30 seconds on a Bruceprotocol, achieving an estimated workload of 7 METS. The resting heart rate was77 bpm, and increased to 140 bpm at peak exercise, which was 88 % ofthe predicted maximum heart rate. The resting blood pressure was 129 / 75and 165 / 86 at peak exercise, demonstrating a normal response toexercise. Exercise was terminated due to shortness of breath. ECG: NSR. Normal tracing. Less than [address] segment depression developedin the inferior and lateral leads during treadmill exercise which did notmeet diagnostic criteria for myocardial ischemia. There were PVCs. Nuclear Imaging Protocol: Myocardial perfusion imaging was performed at rest approximately 60minutes following the intravenous injection of 11 mCi TC99m tetrofosmin. Atpeak exercise, the patient was injected intravenously with 42 mCi TC99m tetrofosmin and exercise was continued for 2 minutes. Gatedpost-stress tomographic imaging was performed approximately 30 minutes later insame manner. SPECT reconstruction was performed in the short, verticallong and horizontal long axis views in both rest and stress image sets. Findings: There is normal perfusion to all myocardial segments during bothstress and rest imaging. There is no ischemia. Gated SPECT examination revealsnormal left ventricular cavity size. There is normal left ventricular wallmotion. LVEF 72 %. Impression: 1. Normal myocardial perfusion study. No ischemia. 2. Normal gated SPECT examination. Normal left ventricular wallmotion. LVEF 72 %. 3. No ECG changes diagnostic of myocardial ischemia developedduring treadmill exercise. 4. Fair exercise capacity. 5. The overall quality of the study is good. 6. No prior study available for comparison. Recommendations: Clinical correlation . Dictated by: GLADIS ASHTON 11/23/2007 18:06 Electronically signed by: GLADIS ASHTON 11/23/2007 18:15 us Magen Marcelo DO [place] ORDERABLES Final Result INTERFACE SYSTEM Refer to clinic/hospital department documented in this encounter Visit Diagnoses Diagnosis Coronary atherosclerosis of unspecified type of vessel, three affiliated or graft documented in this encounter Additional Health Concerns Infection Onset Date Last Indicated Resolved Time R/O COVID-19 10/30/2020 10/30/2020 11/06/2020 1:16 AM SHOWROOM MANAGER documented as of this encounter Care Teams Geoscience Professor Relationship Specialty Start Date End Date Magen Marcelo DO [address] [place] [phone] PCP - General 07/18/06 documented as of this encounter
--- OUTSIDE RECORDS SUMMARY | 2024-10-31 12:38 | XMS_ITS | Clinical Summary ---
Author Organization [facility] Administrative Offices Address [address] [place] [phone] Care Team Providers Care Flexible Machining System Machinist Name Role Phone Magen Cabral DO Primary Care Provider Allergies Active Allergy Reactions Criticality Noted Date Comments No Known Allergies 07/06/2006 Medications aspirin (ELBA) 81 mg Oral Tab Take by mouth. Active hydrochlorothiaz don 25 mg Oral tablet Take 1 Tab by mouth daily. 90 Tab 3 06/01/2012 Active fenofibrate 160 mg Oral Tab Take 1 Tab by mouth daily. 90 Tab 1 06/08/2012 Active traZODone (DESYREL) 50 mg Oral tablet Take 1 Tab by mouth daily at bedtime. 90 Tab 1 06/08/2012 Active lisinopril (PRINIVIL) 10 mg Oral tablet Take 1 Tab by mouth daily. 30 Tab 11 06/08/2012 Active omega-3 acid ethyl esters (LOVAZA) 1 gram Oral Cap Take 4 Caps by mouth daily. 360 Cap 11 06/08/2012 Active metoprolol tartrate (LOPRESSOR) 25 mg Oral tablet Take 1 Tab by mouth 2 times daily. 60 Tab 11 07/09/2012 Active cyclobenzaprine (FLEXERIL) 10 mg Oral tablet Take 1 Tab by mouth 3 times daily as needed for Spasm. 45 Tab 1 09/18/2012 Active Active Problems Patient Care Coordination No te Formatting of this note migh t be different from the original. awv , - 11/20 Problem Noted Date Diagnosed Date Special screening for malignant neoplasms, colon 11/25/2010 Vitamin D deficiency 11/25/2010 Insomnia 11/17/2009 Allergic rhinitis 11/17/2009 Other and unspecified hyperlipidemia 11/04/2008 Coronary atherosclerosis of unspecified type of vessel, shinnecock or graft 07/06/2006 Overview (05/19/2008): 04/11 - Stent to LAD Family history of malignant neoplasm of breast 1 Overview (05/20/2009): Mom Special screening for malignant neoplasm of pros conley 07/06/2006 Other malaise and fatigue 07/06/2006 CKD (chronic kidney disease) stage 3, GFR 30-59 ml/min 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, or unspecified(403.10) Resolved Problems Problem Noted Date Diagnosed Date Resolved Date CKD (chronic kidney disease) 05/27/2010 10/25/2010 Overview (05/27/2010): Baseline 1.2 - 1.4 Routine general medical exam ination at a health care facility 11/06/2007 12/02/2011 Calcifying tendinitis of shoulder 10/23/2006 05/19/2008 Other and unspecified hyperlipidemia 07/06/2006 11/17/2008 Essential hypertension, benign 07/06/2006 05/26/2011 Family history of diabetes mellitus 07/06/2006 11/25/2010 Family history of ischemic heart disease 07/06/2006 11/25/2010 Screening for malignant neop lasm of the rectum 07/06/2006 11/17/2008 Impaired fasting glucose 07/06/200605/2010 Immunizations Immunization Administration Dates Next Due (PREVNAR 13)(6 WKS UP) PNEUM OCOCCAL CONJUGATE (PCV13) 0.5 ML, IM 12/02/2011 Influenza Seasonal Unspecified Formulation IM ,11/03/2011 Family History Medical History Relation Name Comments Heart Disease Brother Heart Disease Father Alzheimer's Disease Mother Breast Cancer Mother Heart Disease Mother Relation Name Status Comments Brother Alive Father Alive Mother Social History Tobacco Use Types Packs/Day Years Used Date Smoking Tobacco: Former Cigarettes 0 05/19/1976 - 05/19/1996 Smokeless Tobacco: Former Tobacco Cessation:Counseling Given: No Alcohol Use Standard Drinks/Week Comments Yes 0 (1 standard drink = 0.6 oz pur e alcohol) social Sex and Gender Information Value Date Recorded Sex Assigned at Not on file Legal Sex Male 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 Gender Identity Not on file Sexual Orientation Not on file Last Filed Vital Signs Vital Sign Reading Time Taken Comments Blood Pressure 124/64 06/08/2012 10:55 AM CDT Pulse 87 01/05/2007 3:00 PM CDT Temperature 37 C (98.6 F) 10/06/2006 3:00 PM LICENSED MARRIAGE AND FAMILY THERAPIST Respiratory Rate - - Oxygen Saturation - - Inhaled Oxygen Concentration - - Weight 98.4 kg (217 lb) 06/08/2012 10:55 AM CDT Height 177.8 cm (5' 10 ) 06/08/2012 10:55 AM CDT Body Mass Index 31.14 06/08/2012 10:55 AM CDT Plan of Treatment Health Maintenance Due Date Last Done Comments DTAP/TDAP/TD VACCINES (1 - Tdap) 1965 ZOSTER VACCINE (1 of 2) 1996 PNEUMOCOCCAL VACCINE 65+ YEA RS (2 of 2 - PPSV23) 12/01/2012 12/02/2011 COLORECTAL SCREENING 08/27/2013 08/27/2009, 08/26/2009, 05/12/2006 RSV VACCINE (60+ or ) (1 - 1-dose 75+ series) 2021 INFLUENZA VACCINE (#1) 2024 06/08/2012, 2011 Procedures Procedure Name Priority Date/Time Associated Diagnosis Comments ENDOSCOPY, COLON, DIAGNOSTIC Routine 08/26/2009 from Last 3 Months or Most Recently Relevant to Health Maintenance Results * ENDOSCOPY, COLON, DIAGNOSTIC (08/26/2009) us Mason Zaldivar MD GI PROCEDURE ORDERABLES Final Result EXTERNAL LAB from Last 3 Months or Most Recently Relevant to Health Maintenance Insurance * Guarantor: Carmine English Account Type Relation to Patient Date of Phone Billing Address Personal/Family Self 1945 [phone] [employer] (Work) [address] [place] [phone] [facility] [id number] Care Teams Flexible Machining System Machinist Relationship Specialty Start Date End Date Magen Cabral DO [address] [place] [address] PCP - General 07/18/06
--- OUTSIDE RECORDS SUMMARY | 2024-10-31 12:38 | XMS_ITS | Encounter Summary ---
Author Organization [facility] Address [address] [place] [address] Care Team Providers Care Caterpillar Tractor Operator Name Role Phone Magen Cabral DO Primary Care Provider Encounter Details Date Type Department Care Team (Late st Contact Info) Description 11/24/2007 Outpatient Historical [facility] [address] [place] [address] Magen Cabral DO [address] [place] [address] Social History Tobacco Use Types Packs/Day Years Used Date Smoking Tobacco: Never Assessed Sex and Gender Information Value Date Recorded Sex Assigned at Not on file 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 Gender Identity Not on file Sexual Orientation Not on file documented as of this encounter Plan of Treatment Not on file documented as of this encounter Visit Diagnoses Not on filedocumented in this encounter Additional Health Concerns Infection Onset Date Last Indicated Resolved Time R/O COVID-19 10/30/2020 10/30/2020 11/06/2020 1:16 AM REAL ESTATE ACCOUNT EXECUTIVE documented as of this encounter Care Teams Caterpillar Tractor Operator Relationship Specialty Start Date End Date Magen Cabral DO [address] [place] [address] PCP - General 07/18/06 documented as of this encounter
--- OUTSIDE RECORDS SUMMARY | 2024-10-31 12:38 | XMS_ITS | Encounter Summary ---
Author Organization [employer] Address [address] [place] [address] Care Team Providers Care Manager Heavy Duty Name Role Phone Magen Cabral DO Primary Care Provider Encounter Details Date Type Department Care Team (Late st Contact Info) Description 01/05/2007 Orders Only [facility] [address] [place] [address] Magen Cabral DO [address] [place] [address] Social History Tobacco Use Types Packs/Day Years Used Date Smoking Tobacco: Never Assessed Sex and Gender Information Value Date Recorded Sex Assigned at Not on file Legal Sex Male 2:48 AM CORNETIST Gender Identity Not on file Sexual Orientation Not on file documented as of this encounter Progress Notes * Magen Cabral DO - 01/31/2008 6:14 PM CDT WEIGHT: 214lbs BLOOD PRESSURE: 100/60 Right Arm Sitting PULSE: 87 Right Radial, Regular PULSE OXIMETRY:96. NURSE NAME: Amna Garcia M ALLERGIES: No known drug allergies. MEDICATIONS: Medication list current. CHIEF COMPLAINT Here for follow up evaluation. HISTORY: HISTORY: 272.4-HYPERLIPIDEMIA The patient has gained weight. The patient is somewhat compliant with the low saturated fat diet. The patient`s exercise is the same. The patient is tolerating the medications, compliant with medications. The patient's most recent LDL is at goal, most recent HDL is at goal, most recent triglyceride is not at goal, most recent liver function is normal. 401.1-HYPERTENSION ESSENTIAL BENIGN The patient has gained weight. The patient is somewhat compliant with diet. The patient`s exercise is the same. The patient denies chest pain, shortness of breath,dyspnea on exertion, pedal edema, or headache. The patient is compliant with medication. CURRENT PROBLEM LIST: 272.4 HYPERLIPIDEMIA 401.1 HYPERTENSION ESSENTIAL BENIGN 414.00 CORONARY ARTERY DISEASE 726.11 PERIPHERAL ENTHESOPATHIES AND ALLIED SYNDROMES 780.79 FATIGUE 790.21 ABNORMAL FASTING BLOOD GLUCOSE [...] NITROQUICK SUBLINGUAL TABLET SUBLINGUAL 0.4 MG, PRN NAPROSYN ORAL TABLET 500 MG, 1 Two Times A Day CURRENT ALLERGY LIST: NKDA ROS: GENERAL: Normal activity and energy level, no change in appetite. No major weight gain or loss. No malaise, chills, fever, diaphoresis. ENDOCRINE: No history of diabetes, no history of thyroid problems. CARDIAC: No chest pain, palpitations, orthopnea, dyspnea on exertion, or paroxysmal nocturnal dyspnea. RESPIRATORY: No dyspnea, cough, hemoptysis or wheezing. GI: No abdominal pain, nausea, vomiting, diarrhea, constipation, melena, or hematochezia. SOCIAL HISTORY: TOBACCO USE: Has no significant smoking history. PHYSICAL EXAMINATION: CONSTITUTIONAL: GENERAL APPEARANCE: Healthy appearing patient in no distress. EARS, NOSE, MOUTH AND THROAT: ORAL: Inspection of gums, lips, palate, and teeth normal. No scars, lesions, or masses. Oral mucosaunremarkable with non-inflamed posterior pharynx. NECK/THYROID: Trachea midline. No thyroid enlargement, tenderness, or mass. No supraclavicular or cervical adenopathy. RESPIRATORY: Clear to auscultation and percussion. Normal respiratory effort. CARDIOVASCULAR: CARDIAC: Regular rhythm. No murmurs, rubs, or gallops. EDEMA/VARICOSITIES OF EXTREMITIES: No edema or varicosities. GASTROINTESTINAL: ABDOMEN: Soft, non-tender, without masses. Bowel sounds active. ASSESSMENT/PLAN: 272.4-HYPERLIPIDEMIA ASSESSMENT: A low cholesterol diet was encouraged. Weight loss was encouraged. The patient's thyroid status is being followed, and is known to be normal presently. The patient's most recent labs reviewed. MEDICATIONS: GEMFIBROZIL ORAL TABLET 600 MG, 1 po bid, 180 Dispensed, 3 Fills, 90 Duration/Days Supply, status: DISCONTINUED HISTORY, 01/05/2007. TRICOR ORAL TABLET 145 MG, 1 Every Day, 30 Dispensed, 3 Fills, 30 Duration/Days Supply, status: NEWPRESCRIPTION, 01/05/2007. OMACOR ORAL CAPSULE CONVENTIONAL 1 GM, 2 po bid, 360 Dispensed, 3 Fills, 90 Duration/Days Supply, status: CONTINUED, 10/23/2006. 401.1-HYPERTENSION ESSENTIAL BENIGN ASSESSMENT: The blood pressure remains satisfactory. Will not change medication, continue to monitor for complications. MEDICATIONS: TOPROL XL ORAL TABLET 24 HR 25 MG, 1 po qd, 90 Dispensed, 3 Fills, 90 Duration/Days Supply, status:CONTINUED, 10/23/2006. LISINOPRIL ORAL TABLET 10 MG, 1 po qd, 90 Dispensed, 3 Fills, 90 Duration/Days Supply, status: CONTINUED, 10/23/2006. RETURN VISIT : Patient instructed to return in 3 months.chol/bp Electronically Signed by: Mgaen Cabral DO on Friday, January 05, 2007 documented in this encounter Plan of Treatment Not on file documented as of this encounter Visit Diagnoses Not on filedocumented in this encounter Additional Health Concerns Infection Onset Date Last Indicated Resolved Time R/O COVID-19 10/30/2020 10/30/2020 11/06/2020 1:16 AM CORNETIST documented as of this encounter Care Teams Manager Heavy Duty Relationship Specialty Start Date End Date Magen Cabral DO [address] [address] PCP - General 07/18/06 documented as of this encounter
--- OUTSIDE RECORDS SUMMARY | 2024-10-31 12:38 | XMS_ITS | Encounter Summary ---
Author Organization [facility] Address 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 [address] D.O.B: 1945 SSN: [id number] Parent/Guardian if applicable: Patient Insurance: [facility] ID#: [id number] Group#: ORDER(S) #: [id number] Stress [employer]allium BEST TO CALL WORK. [phone] BEST TIME TO CALL: ANYTIME. MAY WE LEAVE MESSAGE AT THAT NUMBER: YES, LEAVE MESSAGE. PLEASE SCHEDULE THE APPOINTMENT AT THE FOLLOWING LOCATION: [facility] TEST PRIORITY: 2 - 7 DAYS. SPECIAL SCHEDULING INSTRUCTIONS: [facility] ORDERING PHYSICIAN: MAGEN MARCELO DO OFFICE SYSTEMS ANALYST & PHONE: Ann Marie Bullard ORDER PRINTED BY: NOV 20, 2007 Nichol Valle L 01:24 p FOR SCHEDULING USE ONLY: FIRST ATTEMPT Date:NOV 21, 2007 Nichol Valle L 02:13 p Spoke with Patient. NOV 21, 2007 Nichol Valle L 02:13 p TEST SCHEDULE [facility]. APPOINTMENT DATE : 11/23/2007 ( 7AM) The appointment was scheduled by Nichol Valle L at [phone] NOV 21, 2007 Nichol Valle L 02:14 p Pre-authorization number: [facility] - #[id number] EXP 01/05/08 Given/Authorized by: JONAS CHANDLER VANESSA @ [employer] Spoke with patient. Follow up completed. * Magen Marcelo DO - 02/14/2008 5:35 PM CDT WEIGHT: 216lbs NURSE NAME: Ann Marie Bullard ALLERGIES: No known drug allergies. TOBACCO USE Patient does not currently use tobacco. MEDICATIONS: Medication list current. CHIEF COMPLAINT EOV, discuss labs HISTORY: HISTORY: 272.4-HYPERLIPIDEMIA The patient has gained weight. The patient is compliant with the low saturatedfat diet. The patient`s exercise is the same. The patient is tolerating the medications, compliant with medications. The patient's most recent LDL is at goal, most recent HDL is not at goal, most recent triglyceride is not at goal, most recent liver function is normal. 401.1-HYPERTENSION ESSENTIAL BENIGN The patient`s weight is the same. The patient is somewhat compliant with diet. The patient`s exercise is the same. The patient is tolerating the medication, compliant with medication. The patient denies chest pain, shortness of breath, dyspnea on exertion, pedal edema, or headache. Recent laboratory work satisfactory. 414.00-CORONARY ARTERY DISEASE The patient's chest pain pattern has worsened. The patient has dyspnea on exertion, denies orthopnea, denies pedal edema. No complications noted from the medication presently being used. The patient is being seen by a criminal justice department chair. V70.0-ROUTINE GENERAL MEDICAL EXAMINATION The patient is doing well with no specific complaints noted. The patient is here for a routine examination. No significant complaints noted. CURRENT PROBLEM LIST: 272.4 HYPERLIPIDEMIA 401.1 HYPERTENSION ESSENTIAL BENIGN 414.00 CORONARY ARTERY DISEASE 726.11 PERIPHERAL ENTHESOPATHIES AND ALLIED SYNDROMES 780.79 FATIGUE 790.21 ABNORMAL FASTING BLOOD GLUCOSE V16.3 FAMILY HISTORY OF CARCINOMA BREAST V17.3 FAMILY HISTORY OF ISCHEMIC HEART DISEASE V18.0 FAMILY HISTORY OF DIABETES MELLITUS V70.0 ROUTINE GENERAL MEDICAL EXAMINATION V76.41 SCREEN FOR CA OF RECTUM V76.44 SCREEN FOR CA OF PROSTATE CURRENT MEDICATION LIST: TETRACYCLINE HCL ORAL TABLET 250 MG, 1 po bid HYDROCHLOROTHIAZIDE ORAL TABLET 25 MG, 1 po qd TEMAZEPAM ORAL CAPSULE CONVENTIONAL 30 MG, PRN at hs OMACOR ORAL CAPSULE CONVENTIONAL 1 GM, 2 po bid NITROQUICK SUBLINGUAL TABLET SUBLINGUAL 0.4 MG, PRN LISINOPRIL ORAL TABLET 10 MG, 1 po qd TRICOR ORAL TABLET 145 MG, 1 Every Day TOPROL XL ORAL TABLET 24 HR 25 MG, 1 po qd CURRENT ALLERGY LIST: NKDA ROS: GENERAL: Normal activity and energy level, no change in appetite. No major weight gain or loss. No malaise, chills, fever, diaphoresis. ALLERGIC/IMMUNOLOGIC: No allergic rhinitis, no hay fever. EYES: WEARS CORRECTIVE LENSES. ENT: No hearing loss, epistaxis, hoarseness or dysphagia. No sinus congestion. ENDOCRINE: No history of diabetes, no history of thyroid problems. CARDIAC: No chest discomfort noted, NOTES DYSPNEA ON EXERTION. RESPIRATORY: HAS HAD PERIODS OF SHORTNESS OF BREATH, no cough. SKIN/BREAST/CHEST: No rashes or non-healing lesions. No breast symptoms noted. HEMATOLOGIC/LYMPHATIC: No anemia, easy bruising, bleeding or swollen nodes. : No dysuria or hematuria. GI: No abdominal pain, nausea, vomiting, diarrhea, constipation, melena, or hematochezia. NEUROLOGIC: No weakness, dizziness, loss of consciousness, transient ischemic symptoms, or seizures. MUSCULOSKELETAL: No muscle or joint pain, weakness, swelling or inflammation. No restriction of motion, no atrophy or backache. PSYCHIATRIC: No increased nervousness, mood changes or depression. Coping well. PAST MEDICAL HISTORY: MEDICAL: Hypercholesterolemia, hypertension, ischemic heart disease. SURGICAL: No previous surgery. CURRENT MEDICATIONS: list ALLERGIES/ADVERSE REACTIONS: No known drug allergies. FAMILY HISTORY: GENERAL FAMILY ILLNESS: POSITIVE HISTORY OF HEART DISEASE, POSITIVE FOR ADULT ONSET DIABETES. SOCIAL HISTORY: MARITAL HISTORY: , living with spouse. TOBACCO USE: Has no significant smoking history. OCCUPATION: . ALCOHOL: Does not give any significant history of alcohol usage. CAFFEINE: Does not use caffeinated beverages. EXERCISES: The patient is not exercising regularly. DIET: Follows no specific diet. PHYSICAL EXAMINATION: CONSTITUTIONAL: GENERAL APPEARANCE: Healthy appearing [...] normal. No scars, lesions, or masses. Oral mucosa unremarkable with non-inflamed posterior pharynx. NECK/THYROID: Trachea midline. No thyroid enlargement, tenderness, or mass. No supraclavicular or cervical adenopathy. RESPIRATORY: Clear to auscultation and percussion. Normal respiratory effort. CARDIOVASCULAR: CARDIAC: Regular rhythm. No murmurs, rubs, or gallops. ARTERIAL: Normal carotids, normal pedal pulses, normal radial pulses. EDEMA/VARICOSITIES OF EXTREMITIES: No edema or varicosities. BREAST/CHEST: Breasts normal to inspection and palpation with no chest deformity. LYMPHATICS: No lymphadenopathy in the neck, no supraclavicular lymphadenopathy noted. GASTROINTESTINAL: ABDOMEN: Soft, non-tender, without masses. Bowel [...] glans. Shaft normal. No Peyronie's noted. PROSTATE: Symmetrical and smooth with no nodularity or tenderness. MUSCULOSKELETAL EXAM: GAIT/STATION: Normal gait. DIGITS/NAILS: No [...] subcutaneous nodules or tightening. NEUROLOGIC: CRANIAL NERVES: it instructor II-XII grossly intact. DEEP TENDON REFLEXES: Deep tendon reflexes 2+/4 and symmetrical. ASSESSMENT/PLAN: 272.4-HYPERLIPIDEMIA ASSESSMENT: Will not change medication, continue to monitor for complications. A low cholesterol diet was encouraged. Weight loss was encouraged. Regular aerobic exercise was encouraged. The patient's thyroid status is being followed, and is known to be normal presently. The patient's most recent labs reviewed. Clinical guidelines reviewed. Protocol reviewed. 401.1-HYPERTENSION ESSENTIAL BENIGN ASSESSMENT: The blood pressure remains satisfactory. Will not change medication, continue to monitor for complications. Regular aerobic exercise was encouraged. Weight loss was discussed and encouraged. No laboratory work is necessary at this time. Clinical guidelines reviewed. Protocol reviewed. 414.00-CORONARY ARTERY DISEASE ASSESSMENT: The patient's chest pain pattern has worsened. Will not change medication, continue to monitor for complications. LAB ORDERS: Order number: [id number] Test Ordered: STRESS THALLIUM V70.0-ROUTINE GENERAL MEDICAL EXAMINATION ASSESSMENT: The patient is doing well and no distinct problems were identified on exam. V76.41-SCREEN FOR CA OF RECTUM LAB ORDERS: Order number: [id number] Test Ordered: HEMOCCULT [id number] REPEAT VITAL SIGNS: BLOOD PRESSURE: 110/60. Right Arm Sitting HEALTH MAINTENANCE: LAST PROSTATE EXAM: wnl. LAST DATE FOBT: neg. PREVENTIVE COUNSELING The patient was counseled regarding colorectal cancer screening, diet, regular sustained exercise for at least 30 minutes 3-4 times per week, prostate cancer screening, screening procedures and recommended schedule for GI hemoccult testing, colonoscopy, cholesterol, thyroid and diabetes screening. RETURN VISIT : Patient instructed to return in 6 months. check up Electronically Signed by: Magen Marcelo DO on Friday, November 16, 2007 documented in this encounter Plan of Treatment Not on file documented as of this encounter Visit Diagnoses Not on filedocumented in this encounter Additional Health Concerns Infection Onset Date Last Indicated Resolved Time R/O COVID-19 10/30/2020 10/30/2020 11/06/2020 1:16 AM BATCH ROLLER OPERATOR documented as of this encounter Care Teams Sap Data Architect Relationship Specialty Start Date End Date Magen Marcelo DO [address] [place] [address] PCP - General 07/18/06 documented as of this encounter
--- OUTSIDE RECORDS SUMMARY | 2024-10-31 12:38 | XMS_ITS | Encounter Summary ---
Author Organization [facility] Address [address] [place] [address] Care Team Providers Care Emergency Vehicle Operations Instructor Name Role Phone Magen Cabral DO Primary Care Provider Encounter Details Date Type Department Care Team (Late st Contact Info) Description 11/05/2008 Outpatient [facility] Center for [address] & [place] [address] Magen Cabral DO [address] [place] [address] Routine General Medical Examination at a Health Care Facility Social History Tobacco Use Types Packs/Day Years Used Date Smoking Tobacco: Former Cigarettes 1 20 0 05/19/1976 - 05/19/1996 Alcohol Use Standard Drinks/Week Comments Yes 0 (1 standard drink = 0.6 oz pur e alcohol) social Sex and Gender Information Value Date Recorded Sex Assigned at Not on file Legal Sex Male 2:48 AM TRIMMING CASER Gender Identity Not on file Sexual Orientation Not on file documented as of this encounter Plan of Treatment Not on file documented as of this encounter Visit Diagnoses Diagnosis Routine general medical examination at a health care facility documented in this encounter Additional Health Concerns Infection Onset Date Last Indicated Resolved Time R/O COVID-19 10/30/2020 10/30/2020 11/06/2020 1:16 AM TRIMMING CASER documented as of this encounter Care Teams Emergency Vehicle Operations Instructor Relationship Specialty Start Date End Date Magen Cabral DO [address] [place] [address] PCP - General 07/18/06 documented as of this encounter
--- OUTSIDE RECORDS SUMMARY | 2024-10-31 12:38 | XMS_ITS | Encounter Summary ---
Author Organization [employer] [facility] Address [address] [place] [address] Care Team Providers Care Quality Assurance Monitor Body Name Role Phone Magen Cabral DO Primary Care Provider Encounter Details Date Type Department Care Team (Late st Contact Info) Description 10/06/2006 Outpatient Historical [facility] Internal Medicine [address] [place] [address] Magen Cabral DO [address] [place] [address] Social History Tobacco Use Types Packs/Day Years Used Date Smoking Tobacco: Never Assessed Sex and Gender Information Value Date Recorded Sex Assigned at Not on file Legal Sex Male 2:48 AM DROP TESTER Gender Identity Not on file Sexual Orientation Not on file documented as of this encounter Last Filed Vital Signs Vital Sign Reading Time Taken Comments Blood Pressure 110/60 10/06/2006 3:00 PM DROP TESTER Pulse 70 10/06/2006 3:00 PM DROP TESTER Temperature 37 C (98.6 F) 10/06/2006 3:00 PM DROP TESTER Respiratory Rate - - Oxygen Saturation - - Inhaled Oxygen Concentration - - Weight 96.6 kg (213 lb) 10/06/2006 3:00 PM DROP TESTER Height - - Body Mass Index - - documented in this encounter Plan of Treatment Not on file documented as of this encounter Visit Diagnoses Not on filedocumented in this encounter Additional Health Concerns Infection Onset Date Last Indicated Resolved Time R/O COVID-19 10/30/2020 10/30/2020 11/06/2020 1:16 AM DROP TESTER documented as of this encounter Care Teams Quality Assurance Monitor Body Relationship Specialty Start Date End Date Magen Cabral DO [address] [place] [address] PCP - General 07/18/06 documented as of this encounter
--- OUTSIDE RECORDS SUMMARY | 2024-10-31 12:38 | XMS_ITS | Encounter Summary ---
Author Organization [employer] [facility] Address [address] [place] [address] Care Team Providers Care Structural Steel Engineer Name Role Phone Magen Cabral DO Primary Care Provider Encounter Details Date Type Department Care Team (Latest Contact Info) Description 05/11/2007 Outpatient Historical [facility] Internal Medicine [address] [place] [address] Magen Cabral DO [address] [place] [address] Other and Unspecified Hyperlipidemia (Primary Dx) Social History Tobacco Use Types Packs/Day Years Used Date Smoking Tobacco: Never Assessed Sex and Gender Information Value Date Recorded Sex Assigned at Not on file Legal Sex Male 2:48 AM DRY CLEANING MACHINE OPERATOR HELPER Gender Identity Not on file Sexual Orientation Not on file documented as of this encounter Plan of Treatment Not on file documented as of this encounter Procedures Procedure Name Priority Date/Time Associated Diagnosis Comments LIPID PANEL Routine 05/11/2007 7:28 AM CDT COMPREHENSIVE METABOLIC PANEL Routine 05/11/2007 7:28 AM CDT documented in this encounter Results * (ABNORMAL) COMPREHENSIVE METABOLIC PANEL (05/11/2007 7:28 AM CDT) GLUCOSE 112(H) 65 - 99 mg/dL INTERFACE SYSTEM CREATININE 1.36(H) 0.67 - 1.17 mg/dL INTERFACE SYSTEM CALCIUM 8.8 8.4 - 10.2 mg/dL INTERFACE SYSTEM ALKALINE PHOSPHATASE 59 40 - 129 U/L INTERFACE SYSTEM AST 24 12 - 38 U/L INTERFACE SYSTEM ALT 26 0 - 41 U/L INTERFACE SYSTEM TOTAL PROTEIN 7.6 6.3 - 8.6 g/dL INTERFACE SYSTEM ALBUMIN 4.4 3.4 - 4.8 g/dL INTERFACE SYSTEM BILIRUBIN TOTAL 0.4 0.2 - 1.0 mg/dL INTERFACE SYSTEM BUN 22(H) 6 - 20 mg/dL INTERFACE SYSTEM SODIUM 135 135 - 145 mmol/L INTERFACE SYSTEM POTASSIUM 3.6 3.5 - 4.9 mmol/L INTERFACE SYSTEM CHLORIDE 101 96 - 108 mmol/L INTERFACE SYSTEM CO2 23 22 - 30 mmol/L INTERFACE SYSTEM GFR, >60 >=60 mL/min/1. 7 sq meter INTERFACE SYSTEM GFR 53(L) >=60 mL/min/1. 7 sq meter INTERFACE SYSTEM Comment: Estimated GFR rate interpretative information for both Americans and non- Americans is available on the [facility] Intranet at: [email or web address] Select: Lab Policies and Procedures Select: Reference Ranges - GFR 05/11/2007 7:28 AM CDT Magen Cabral DO CHEMISTRY ORDERABLES E dited INTERFACE SYSTEM Refer to clinic/hospital department * (ABNORMAL) LIPID PANEL (05/11/2007 7:28 AM CDT) CHOLESTEROL 143 100 - 199 mg/dL INTERFACE SYSTEM TRIGLYCERIDE 255(H) 10 - 149 mg/dL INTERFACE SYSTEM HDL 29(L) 40 - 59 mg/dL INTERFACE SYSTEM CHOL/HDL RATIO 4.9 2.0 - 5.0 INTER FACE SYSTEM LDL CALCULATED 63 <=99 mg/dL INTERFACE SYSTEM LIPID PANEL COMMENT See Below INTERFACE SYSTEM Comment: The adult ATP and pediatric NCEP classifications for lipids are available on the [facility] charity: wateret at: [email or web address] Select: Lab Policies and Procedures Select: Reference Ranges - Lipids 05/11/2007 7:28 AM CDT Magen Cabral DO CHEMISTRY ORDERABLES E dited INTERFACE SYSTEM Refer to clinic/hospital department documented in this encounter Visit Diagnoses Diagnosis Other and unspecified hyperlipidemia- Primary documented in this encounter Additional Health Concerns Infection Onset Date Last Indicated Resolved Time R/O COVID-19 10/30/2020 10/30/2020 11/06/2020 1:16 AM DRY CLEANING MACHINE OPERATOR HELPER documented as of this encounter Care Teams Structural Steel Engineer Relationship Specialty Start Date End Date Magen Cabral, [address] [id number] PCP - General 07/18/06 documented as of this encounter
--- OUTSIDE RECORDS SUMMARY | 2024-10-31 12:38 | XMS_ITS | Encounter Summary ---
Author Organization [employer] [facility] Address [address] [place] [address] Care Team Providers Care Studio Grip Name Role Phone Magen Cabral DO Primary Care Provider Encounter Details Date Type Department Care Team (Late st Contact Info) Description 11/16/[address] [facility] Internal Medicine [address] [place] [address] Magen Cabral DO [address] [place] [address] Social History Tobacco Use Types Packs/Day Years Used Date Smoking Tobacco: Never Assessed Sex and Gender Information Value Date Recorded Sex Assigned at Not on file Legal Sex Male 2:48 AM RADAR ENGINEER Gender Identity Not on file Sexual Orientation Not on file documented as of this encounter Plan of Treatment Not on file documented as of this encounter Visit Diagnoses Not on filedocumented in this encounter Additional Health Concerns Infection Onset Date Last Indicated Resolved Time R/O COVID-19 10/30/2020 10/30/2020 11/06/2020 1:16 AM RADAR ENGINEER documented as of this encounter Care Teams Studio Grip Relationship Specialty Start Date End Date Magen Cabral DO [address] [place] [address] PCP - General 07/18/06 documented as of this encounter
--- OUTSIDE RECORDS SUMMARY | 2024-10-31 12:38 | XMS_ITS | Encounter Summary ---
Author Organization [facility] Address [address] [place] [address] Care Team Providers Care Retail Account Specialist Name Role Phone Magen Cabral DO Primary Care Provider Encounter Details Date Type Department Care Team (Late st Contact Info) Description 05/06/2009 Outpatient [facility] Center for [address] & [place] [address] Magen Cabral DO [address] [place] [address] Routine General Medical Examination at [...] on file Legal Sex Male 2:48 AM STEM TEACHER Gender Identity Not on file Sexual Orientation Not on file documented as of this encounter Plan of Treatment Not on file documented as of this encounter Visit Diagnoses Diagnosis Routine general medical examination at a health care facility documented in this encounter Additional Health Concerns Infection Onset Date Last Indicated Resolved Time R/O COVID-19 10/30/2020 10/30/2020 11/06/2020 1:16 AM STEM TEACHER documented as of this encounter Care Teams Retail Account Specialist Relationship Specialty Start Date End Date Magen Cabral DO [address] [place] [address] PCP - General 07/18/06 documented as of this encounter
--- OUTSIDE RECORDS SUMMARY | 2024-10-31 12:38 | XMS_ITS | Encounter Summary ---
Author Organization [employer] Address [address] [place] [address] Care Team Providers Care Industrial Safety And Health Specialist Name Role Phone Magen Cabral DO Primary Care Provider Reason for Visit * Reason Onset Date Comments Medication Refill 04/19/2012 Encounter Details Date Type Department Care Team (Late st Contact Info) Description 04/19/2012 Refill Central Business [facility] [address] [place] [address] Tae, Generic Provider Social History Tobacco Use Types Packs/Day Years Used Date Smoking Tobacco: Former Cigarettes 0 05/19/1976 - 05/19/1996 Alcohol Use Standard Drinks/Week Comments Yes 0 (1 standard drink = 0.6 oz pur e alcohol) social Sex and Gender Information Value Date Recorded Sex Assigned at Not on file Legal Sex Male 2:48 AM SEMICONDUCTOR DEVELOPMENT TECHNICIAN Gender Identity Not on file Sexual Orientation Not on file documented as of this encounter Plan of Treatment Not on file documented as of this encounter Visit Diagnoses Not on filedocumented in this encounter Additional Health Concerns Infection Onset Date Last Indicated Resolved Time R/O COVID-19 10/30/2020 10/30/2020 11/06/2020 1:16 AM SEMICONDUCTOR DEVELOPMENT TECHNICIAN documented as of this encounter Care Teams Industrial Safety And Health Specialist Relationship Specialty Start Date End Date Magen Cabral DO [address] [place] [address] PCP - General 07/18/06 documented as of this encounter
--- OUTSIDE RECORDS SUMMARY | 2024-10-31 12:38 | XMS_ITS | Encounter Summary ---
Author Organization [facility] Address [address] [place] [address] Care Team Providers Care Plastic Tile Layer Name Role Phone Magen Cabral DO Primary Care Provider Encounter Details Date Type Department Care Team (Late st Contact Info) Description 01/05/2007 Outpatient Historical [facility] Internal Medicine [address] [address] Magen Cabral DO [address] [address] Social History Tobacco Use Types Packs/Day Years Used Date Smoking Tobacco: Never Assessed Sex and Gender Information Value Date Recorded Sex Assigned at Not on file Legal Sex Male 2:48 AM RIGGING WORKER Gender Identity Not on file Sexual Orientation Not on file documented as of this encounter Last Filed Vital Signs Vital Sign Reading Time Taken Comments Blood Pressure 100/60 01/05/2007 3:00 PM CDT Pulse 87 01/05/2007 3:00 PM CDT Temperature - - Respiratory Rate - - Oxygen Saturation - - Inhaled Oxygen Concentration - - Weight 97.1 kg (214 lb) 01/05/2007 3:00 PM CDT Height - - Body Mass Index - - documented in this encounter Plan of Treatment Not on file documented as of this encounter Visit Diagnoses Not on filedocumented in this encounter Additional Health Concerns Infection Onset Date Last Indicated Resolved Time R/O COVID-19 10/30/2020 10/30/2020 11/06/2020 1:16 AM RIGGING WORKER documented as of this encounter Care Teams Plastic Tile Layer Relationship Specialty Start Date End Date Magen Cabral DO [address] [facility] [address] [address] PCP - General 07/18/06 documented as of this encounter
[2024-10-31 20:27] LABS: Anion Gap 10 mmol/L (4-12); Blood Urea Nitrogen 19 mg/dL (9-20); Calcium 9.8 mg/dL (8.4-10.2); Carbon Dioxide 24 mmol/L (22-30); Chloride 102 mmol/L (98-107); Estimated Glomerular Filt Rate 51; Glucose 110 mg/dL (65-110); Potassium 4.5 mmol/L (3.4-5.0); Sodium 136 mmol/L (137-145)
== END 2024-10-31 12:35 | disposition home or self-care (01) ==
PROVIDERS: PCP Internal Medicine; Visit Provider Clinical Nurse Specialist
DX: I10 Essential (primary) hypertension (principal)
CPT/HCPCS: 36415; 80048

== ENCOUNTER 2025-05-09 08:42 | Outpatient (CLI) | payer MEDICARE, SELFPAY ==
--- OUTSIDE RECORDS SUMMARY | 2024-10-28 07:20 | XMS_ITS | Continuity of Care Document ---
Author Organization [facility] Address [address] [place] [address] Phone Care Team Providers Care Floor Nurse Name Role Phone Surgery [facility] Unavailable Unavailable Advance Directives Directive Yes / No Effective Date File Name No Information Encounters Encounter Description Practice Location Reason(s) For Visit Diagnoses Date Provider Providers Copied on Encounter [facility], [address], [place], [id number], [place] tel:[phone] [facility] No Information [facility] [address], [place], [id number], [place]. tel:[phone] Referring Provider: Aayush Wharton, [address] [place], [address]. tel:[phone] Family History Family Member Type Diagnosis Age At Onset No Information Payers Payer name Insurance type Covered libertarian ID Authoriza tion(s) [place] [place] [id number] Social History Type Description Quantity Date Captured Comments Sex Male Smoking Status No Information Chief Complaint And Reason For Visit No Information Reason For Referral Reason For Referral No Information History Of Present Illness Encounter Date Complaint History Of Prese nt Illness No Information Functional Status Date Functional Assessmen t No Information Instructions Date Instruction Additional Infor mation No Information Assessments Type Assessment Date No Information Patient Care Teams Name Effective Dates (start - stop) Status Members No Information
--- OUTSIDE RECORDS SUMMARY | 2024-11-11 08:45 | XMS_ITS | Continuity of Care Document ---
Author Organization [facility], L TD Address [address] [place] [address] Phone Care Team Providers Care Cassandra Architect Name Role Phone Oberreiter OD, Amna Unavailable Unavailabl e Allergies, Adverse Reactions, Alerts Substance Reaction Status Criticality adhesive Hives / Skin Rash(moderate) Active No Information Medications Medication Instructions Dosage Effective Dates (start - stop) Status Comments brimonidine 0.2 % eye drops instill 1 drop by Ophthalmic route 2 times daily OD, STOP 10/11/2024 - Active prednisolone acetate 1 % eye drops,suspension Instill 1 drop QID to the operative eye starting 2 days before surgery, continue for 7 days after, then BID until advised otherwise by physician Disp 10 ml - Active ofloxacin 0.3 % eye drops instill 1 drop to operative eye QID x 9 days starting 2 days before surgery Disp 5ml - Active ketorolac 0.5 % eye drops instill 1 drop in operative eye QID for 9 days starting 2 days prior to surgery Disp 5ml - Active atenolol 25 mg tablet take 1 tablet by o ral route every day 25 MG - Active rosuvastatin 5 mg tablet take 1 tablet by oral route every day 5 MG - Active tamsulosin 0.4 mg capsule take 1 capsule by oral route every day 1/2 hour following the same meal each day 0.4 MG - Active losartan 25 mg tablet take 1 tablet by o ral route every day 25 MG - Active aspirin 81 mg chewable tablet chew 1 tablet by oral route every day 81 MG - Active Procedures Procedure Date REFRACTION POSTOP FOLLOW-UP VISIT POSTOP FOLLOW-UP VISIT CATARACT SURG W/IOL IOL MASTER, PROF COMP ONLY POSTOP FOLLOW-UP VISIT CATARACT SURG W/IOL Post Operative Kit / Medical Supply By P rescription IOL MASTER REFRACTION EYE EXAM, NEW PATIENT Advance Directives Directive Yes / No Effective Date File Name No Information Encounters Encounter Description Practice Location Reason(s) For Visit Diagnoses Date Provider Providers Copied on Encounter [facility], [address] [place] [address], [id number] , [place] [phone] [facility] Post-op cataract surgery (chief complaint) Regular astigmatism, bilateralPresbyop iaPresence of intraocular lensVitreous degeneration, bilateralDry eye syndrome of bilateral lacrimal glands 5 Michell Woo. [address], [place], [place], [id number], [place]. tel:[phone] Referring Provider: Amna James, [address], [place], [address]. tel:[phone] [facility], [address] [place] [address], [id number] , [place] tel:[phone] [facility] Post-op cataract surgery (chief complaint) Cataract extraction status, left eye Michell Woo. [address], [place], [place], [id number], [place]. tel:[phone] Referring Provider: Amna James, [address], [place], [address]. [phone] [facility], [address] [place] [address], [id number] , [place] tel:[phone] [facility] Age-related nuclear cataract, left eye 5 Dorian Looney. [address] [place] [address], [id number], [place]. tel:[phone] Referring Provider: Aayush Wharton, [address] [place] [address], [id number]. tel:[phone] [facility], [address] [place] [address], [id number] , [place] tel:[phone] [facility] Age-related nuclear cataract, left eye 5 Dorian Looney. [address] [place] [address], [id number], [place]. tel:[phone] [facility], [address] [place] [address], [id number] , [place] tel:[phone] [facility] Post-op cataract surgery (chief complaint) Cataract extraction status, right eye 5 Michell Woo. [address], [place], [place], [id number], [place]. tel:[phone] Referring Provider: Amna James, [address], [place], [address]. tel:[phone] [facility], [address] [place] [address], [id number] , [place] tel:[phone] [facility] No Information 5 Dorian Looney. [address] [place] [address], [id number], [place]. tel:[phone] Referring Provider: Aayush Wharton, [address] [place] [address], [id number]. tel:[phone] [facility], [address] [place] [address], [id number] , [place] tel:[phone] [facility] No Information 5 Dorian Looney. [address] [place] [address], [id number], . tel:[phone] Referring Provider: TRACEY Lundy [address] [place], [address]. tel:[phone] [facility], [address] [place] [address], [id number] , tel:[phone] [facility] No Information 5 oDrian Looney. [address] [place] [address], [id number], [place]. tel:[phone] Referring Provider: Aayush Wharton, [address] [place] [address], [id number]. tel:[phone] [facility], [address] [place] [address], [id number] , tel:[phone] [facility] No Information 4 Dorian Looney. [address] [place] [address], [id number], [place]. tel:[phone] [facility], [address] [place] [address], [id number] , tel:[phone] [facility] cataract evaluation (chief complaint) Regular astigmatism, bilateralPresbyop iaHypermetropia, right eye 4 Dorian Looney. [address] [place] [address], [id number], [place]. tel:[phone] Referring Provider: Aayush Wharton, [address] [place] [address], [id number]. tel:[phone] Family History Family Member Type Diagnosis Age At Onset Mother Problem Diabetes mellitus Problem No family history of Hyperte nsion Problem No family history of Macular degeneration Mother Problem Cataracts Problem No family history of Glaucom a Payers Payer name Insurance type Covered green party ID Authoriza tion(s) [place] [employer] [place] [id number] Social History Type Description Quantity Date Captured Comments Alcohol Use Details Unknown Caffeine Use Details Unknown Tobacco Use Status Ex-cigarette smoker 025 Smoking Status Former smoker Smoking Tobacco Use Details Cigarette: Age Stopped: 31 Cigarette: No Details Available Sex Male Chief Complaint And Reason For Visit From encounter dated '11/11/2024 13:45'. Post-op cataract surgery (chief complaint). Description: The 79 year old patient presents for evaluation of Post-op cataract surgery in the right eye and left eye. Pt states vision in OU is stable improved since surgery N more than D. Pt states he has trouble seeing Tv has a little haze to it. NO trouble driving in OU. Pt states colors are more vivid since surgery. Patient denies: pain or discomfort in OU. Pt is using 1 gt of Prednisolone in OU BID. Reason For Referral Reason For Referral No Information History Of Present Illness Encounter Date Complaint History Of Prese nt Illness Post-op cataract surgery The 79 year old patient presents for evaluation of Post-op cataract surgery in the right eye and left eye. Pt states vision in OU is stable improved since surgery N more than D. Pt states he has trouble seeing Tv has a little haze to it. NO trouble driving in OU. Pt states colors are more vivid since surgery. Patient denies: pain or discomfort in OU. Pt is using 1 gt of Prednisolone in OU BID. Post-op cataract surgery The 79 year old patient presents for Post- op cataract surgery in the left eye. OD VA good, stable and constant D&N sc and OS VA blurry and out of focus D&N sc. Pt denies pain and discomfort OU. Post-op cataract surgery The 79 year old patient presents for Post- op cataract surgery OD. PT reports OD vision has improved and things are much brighter. PT reports no changes in OS vision. PT reports cloudiness OD. PT denies pain or discomfort. PT is using gtt as directed. cataract evaluation The 78 year old patient presents for cataract evaluation[facility] [place] Pt states DVA and NVA is blurry and cloudy c gls. Pt says night time is the worst, especially with the glare and halos. Pt states he can not read his books as easily. Pt denies pain or discomfort and is using Refresh PRN OU. Functional Status Date Functional Assessmen t No Information Instructions Date Instruction Additional Infor lulu Impression/Plan Impression/Plan Related to Catar act extraction status, left eye Impression/Plan Related to Catar act extraction status, right eye Impression/Plan Assessments Type Assessment Date assessment Regular astigmatism, bilateral M assessment Presbyopia assessment Presence of intraocular lens Nov assessment Vitreous degeneration, bilateral assessment Dry eye syndrome of bilateral la crimal glands Patient Care Teams Name Effective Dates (start - stop) Status Members No Information
--- OUTSIDE RECORDS SUMMARY | 2025-05-09 08:47 | XMS_ITS | Encounter Summary ---
Author Organization [employer] [facility] Address [address] [place] [address] Care Team Providers Care Advertising Sales Manager Name Role Phone Magen Cabral DO Primary Care Provider Encounter Details Date Type Department Care Team (Late st Contact Info) Description 10/05/1998 Outpatient Historical [facility] ShuffJohn MD [address] [facility] [address] [place] [address] Unspecified hearing loss (Primary Dx) Social History Tobacco Use Types Packs/Day Years Used Date Smoking Tobacco: Never Assessed Sex and Gender Information Value Date Recorded Sex Assigned at Not on file Legal Sex Male 2:48 AM HOG COOLER Gender Identity Not on file Sexual Orientation Not on file documented as of this encounter Plan of Treatment Not on file documented as of this encounter Visit Diagnoses Diagnosis Unspecified hearing loss- Primary documented in this encounter Additional Health Concerns Infection Onset Date Last Indicated Resolved Time R/O COVID-19 10/30/2020 10/30/2020 11/06/2020 1:16 AM HOG COOLER documented as of this encounter Care Teams Advertising Sales Manager Relationship Specialty Start Date End Date Magen Cabral DO [address] [place] [address] PCP - General 07/18/06 documented as of this encounter
--- OUTSIDE RECORDS SUMMARY | 2025-05-09 08:47 | XMS_ITS | Encounter Summary ---
[facility] Organization [facility] Address [address] [place] [address] Care Team Providers Care Air Conditioning Service Technician Name Role Phone Magen Cabral DO Primary Care Provider Encounter Details Date Type Department Care Team (Late st Contact Info) Description 07/06/2006 Outpatient Historical [facility] Internal Medicine [address] [place] [address] Magen Cabral DO [address] [place] [address] Social History Tobacco Use Types Packs/Day Years Used Date Smoking Tobacco: Never Assessed Sex and Gender Information Value Date Recorded Sex Assigned at Not on file Legal Sex Male 2:48 AM DRILL DOCTOR Gender Identity Not on file Sexual Orientation Not on file documented as of this encounter Plan of Treatment Not on file documented as of this encounter Visit Diagnoses Not on filedocumented in this encounter Additional Health Concerns Infection Onset Date Last Indicated Resolved Time R/O COVID-19 10/30/2020 10/30/2020 11/06/2020 1:16 AM DRILL DOCTOR documented as of this encounter Care Teams Air Conditioning Service Technician Relationship Specialty Start Date End Date Magen Cabral DO [address] [place] [address] PCP - General 07/18/06 documented as of this encounter
--- OUTSIDE RECORDS SUMMARY | 2025-05-09 08:47 | XMS_ITS | Encounter Summary ---
Author Organization [employer] Address [address] [place] [address] Care Team Providers Care Earth Auger Operator Name Role Phone Magen Cabral DO Primary Care Provider Encounter Details Date Type Department Care Team (Late st Contact Info) Description 07/06/2006 Outpatient Historical [facility] Internal Medicine [address] [place] [address] Magen Cabral DO [address] [place] [address] Social History Tobacco Use Types Packs/Day Years Used Date Smoking Tobacco: Never Assessed Sex and Gender Information Value Date Recorded Sex Assigned at Not on file Legal Sex Male 2:48 AM STEWARD/STEWARDESS THIRD CLASS Gender Identity Not on file Sexual Orientation Not on file documented as of this encounter Plan of Treatment Not on file documented as of this encounter Visit Diagnoses Not on filedocumented in this encounter Additional Health Concerns Infection Onset Date Last Indicated Resolved Time R/O COVID-19 10/30/2020 10/30/2020 11/06/2020 1:16 AM STEWARD/STEWARDESS THIRD CLASS documented as of this encounter Care Teams Earth Auger Operator Relationship Specialty Start Date End Date Magen Cabral DO [address] [place] [address] PCP - General 07/18/06 documented as of this encounter
--- OUTSIDE RECORDS SUMMARY | 2025-05-09 08:47 | XMS_ITS | Encounter Summary ---
Author Organization [employer] [facility] Address [address] [place] [address] Care Team Providers Care Hot Frame Tender Name Role Phone Magen Cabral DO Primary Care Provider Encounter Details Date Type Department Care Team (Latest Contact Info) Description 07/18/2006 Outpatient Historical [facility] Internal Medicine [address] [place] [address] Magen Cabral DO [address] [place] [address] Other and Unspecified Hyperlipidemia (Primary Dx) Social History Tobacco Use Types Packs/Day Years Used Date Smoking Tobacco: Never Assessed Sex and Gender Information Value Date Recorded Sex Assigned at Not on file Legal Sex Male 2:48 AM ASBESTOS ABATEMENT TECHNICIAN Gender Identity Not on file Sexual Orientation Not on file documented as of this encounter Plan of Treatment Not on file documented as of this encounter Procedures Procedure Name Priority Date/Time Associated Diagnosis Comments PSA MEDICARE SCREEN Routine 07/18/2006 7 :18 AM ASBESTOS ABATEMENT TECHNICIAN TSH REFLEXIVE Routine 07/18/2006 7:18 AM ASBESTOS ABATEMENT TECHNICIAN URINALYSIS WITH REFLEX CULTURE Routine 07/18/2006 7:18 AM ASBESTOS ABATEMENT TECHNICIAN CBC WITH DIFFERENTIAL Routine 07/18/2006 7:18 AM ASBESTOS ABATEMENT TECHNICIAN CBC WITH DIFFERENTIAL Routine 07/18/2006 7:18 AM ASBESTOS ABATEMENT TECHNICIAN URINALYSIS W/REFLEX MICROSCOPIC Routine 07/18/2006 7:18 AM ASBESTOS ABATEMENT TECHNICIAN HEMOGLOBIN A1C Routine 07/18/2006 7:18 AM ASBESTOS ABATEMENT TECHNICIAN LIPID PANEL Routine 07/18/2006 7:18 AM ASBESTOS ABATEMENT TECHNICIAN COMPREHENSIVE METABOLIC PANEL Routine 07/18/2006 7:18 AM ASBESTOS ABATEMENT TECHNICIAN documented in this encounter Results * HEMOGLOBIN A1C (07/18/2006 7:18 AM ASBESTOS ABATEMENT TECHNICIAN) HEMOGLOBIN A1C 5.2 4.1 - 6.1 % of Hgb INTERFACE SYSTEM GLUCOSE, MEAN BLOOD 87 mg/dL INTERFACE SYSTEM 07/18/2006 7:18 AM ASBESTOS ABATEMENT TECHNICIAN Magen Cabral DO CHEMISTRY ORDERABLES F inal Result Performing Organization Address [facility] de Phone Number INTERFACE SYSTEM Refer to clinic/hospital department * (ABNORMAL) URINALYSIS (07/18/2006 7:18 AM ASBESTOS ABATEMENT TECHNICIAN) COLOR UA Yellow INTERFACE SYSTEM CLARITY UA [...] /LPF INTERF MERYL SYSTEM 07/18/2006 7:18 AM ASBESTOS ABATEMENT TECHNICIAN Magen Aguilar YeHivemanjulaCodenomiconvarun DO URINE ORDERABLES Final Result Performing Organization Address [facility] Co de Phone Number INTERFACE SYSTEM Refer to clinic/hospital department * URINALYSIS WITH REFLEX CULTURE (07/18/2006 7:18 AM ASBESTOS ABATEMENT TECHNICIAN) URINE CULTURE ORDER Not indicated INTERFACE SYSTEM Comment: Criteria for a reflex culture include one or more of the following: Abn ormal nitrite, leukocyte esterase, WBCs or RBCs. Lack of qualifying criteria does not exclude the possiblity of a urinary tract infection. Dilute urine, drug interference, etc. may decrease the sensitivity of the criteria analytes. 07/18/2006 7:18 AM ASBESTOS ABATEMENT TECHNICIAN Magen YeHivemanjul[facility] DO URINE ORDERABLES Final Result Performing Organization Address [facility] de Phone Number INTERFACE SYSTEM Refer to clinic/hospital department * CBC WITH DIFFERENTIAL (07/18/2006 7:18 AM ASBESTOS ABATEMENT TECHNICIAN) NEUTROPHILS 59 45 - 70 % INTERFAC [...] 0.20 K/uL INTERFACE SYSTEM 07/18/2006 7:18 AM ASBESTOS ABATEMENT TECHNICIAN [facility] DO HEMATOLOGY ORDERABLES Final Result Performing Organization Address [facility] de Phone Number INTERFACE SYSTEM Refer to clinic/hospital department * (ABNORMAL) CBC WITH DIFFERENTIAL (07/18/2006 7:18 AM ASBESTOS ABATEMENT TECHNICIAN) WBC 4.2 4.0 - 9.8 K/uL INTERFACE [...] 12.4 fL INTERFACE SYSTEM 07/18/2006 7:18 AM ASBESTOS ABATEMENT TECHNICIAN Magen Cabral DO HEMATOLOGY ORDERABLES Final Result INTERFACE SYSTEM Refer to clinic/hospital department * TSH REFLEXIVE (07/18/2006 7:18 AM ASBESTOS ABATEMENT TECHNICIAN) Pathologist [facility] TSH 1.65 0.27 - 4.20 uU/mL INTERFACE SYSTEM 07/18/2006 7:18 AM ASBESTOS ABATEMENT TECHNICIAN Magen Cabral DO CHEMISTRY ORDERABLES F inal Result Performing Organization Address [facility]/ZIP Co de Phone Number INTERFACE SYSTEM Refer to clinic/hospital department * PSA MEDICARE SCREEN (07/18/2006 7:18 AM ASBESTOS ABATEMENT TECHNICIAN) Pathologist [facility] PSA, SCREEN 0.6 0.0 - 4.0 ng/mL INTERFACE SYSTEM Comment:Performed on [employer] E170 System 07/18/2006 7:18 AM ASBESTOS ABATEMENT TECHNICIAN Magen Cabral DO CHEMISTRY ORDERABLES C OM Final Result INTERFACE SYSTEM Refer to clinic/hospital department * (ABNORMAL) COMPREHENSIVE METABOLIC PANEL (07/18/2006 7:18 AM ASBESTOS ABATEMENT TECHNICIAN) GLUCOSE 117(H) 65 - 99 mg/dL INTERFACE [...] 30 mmol/L INTERFACE SYSTEM 07/18/2006 7:18 AM ASBESTOS ABATEMENT TECHNICIAN Magen Cabral DO CHEMISTRY ORDERABLES F inal Result Performing Organization Address [facility] Co de Phone Number INTERFACE SYSTEM Refer to clinic/hospital department * LIPID PANEL (07/18/2006 7:18 AM ASBESTOS ABATEMENT TECHNICIAN) CHOLESTEROL 117 100 - 199 mg/dL INTERFACE SYSTEM TRIGLYCERIDE 102 10 - 149 mg/dL INTERFACE SYSTEM HDL 45 40 - 59 mg/dL INTERFACE SYSTEM CHOL/HDL RATIO 2.6 2.0 - 5.0 INTER FACE SYSTEM LDL CALCULATED 52 <=99 mg/dL INTERFACE SYSTEM LIPID PANEL COMMENT See Below INTERFACE SYSTEM Comment: The adult ATP and pediatric NCEP classifications for lipids are available on the [facility] Intranet at: [email or web address] hospitalOpathicaet/unity/sjmmclab.nsf Select: Lab Policies and Procedures Select: Reference Ranges - Lipids 07/18/2006 7:18 AM ASBESTOS ABATEMENT TECHNICIAN Magen Cabral DO CHEMISTRY ORDERABLES F inal Result INTERFACE SYSTEM Refer to clinic/hospital department documented in this encounter Visit Diagnoses Diagnosis Other and unspecified hyperlipidemia- Primary documented in this encounter Additional Health Concerns Infection Onset Date Last Indicated Resolved Time R/O COVID-19 10/30/2020 10/30/2020 11/06/2020 1:16 AM ASBESTOS ABATEMENT TECHNICIAN documented as of this encounter Care Teams Hot Frame Tender Relationship Specialty Start Date End Date Magen Cabral DO [address] [place] [address] PCP - General 07/18/06 documented as of this encounter
--- OUTSIDE RECORDS SUMMARY | 2025-05-09 08:47 | XMS_ITS | Encounter Summary ---
Author Organization [employer] [facility] Address [address] [place] [address] Care Team Providers Care Seasoning Sprayer Name Role Phone Magen Cabral DO Primary Care Provider Encounter Details Date Type Department Care Team (Latest Contact Info) Description 10/02/2006 Outpatient Historical [facility] Internal Medicine [address] [place] [address] Magen Cabral DO [address] [place] [address] Other and Unspecified Hyperlipidemia (Primary Dx) Social History Tobacco Use Types Packs/Day Years Used Date Smoking Tobacco: Never Assessed Sex and Gender Information Value Date Recorded Sex Assigned at Not on file Legal Sex Male 2:48 AM STUDIO MODEL Gender Identity Not on file Sexual Orientation Not on file documented as of this encounter Plan of Treatment Not on file documented as of this encounter Procedures Procedure Name Priority Date/Time Associated Diagnosis Comments LIPID PANEL Routine 10/02/2006 7:20 AM STUDIO MODEL COMPREHENSIVE METABOLIC PANEL Routine 10/02/2006 7:20 AM STUDIO MODEL documented in this encounter Results * (ABNORMAL) COMPREHENSIVE METABOLIC PANEL (10/02/2006 7:20 AM STUDIO MODEL) GLUCOSE 122(H) 65 - 99 mg/dL INTERFACE [...] and non- Americans is available on the [facility] Intranet at: [email or web address] Project/[email or web address] DSP Select: Lab Policies and Procedures Select: Reference Ranges - GFR 10/02/2006 7:20 AM STUDIO MODEL Magen Cabral DO CHEMISTRY ORDERABLES E dited INTERFACE SYSTEM Refer to clinic/hospital department * (ABNORMAL) LIPID PANEL (10/02/2006 7:20 AM STUDIO MODEL) CHOLESTEROL 128 100 - 199 mg/dL INTERFACE SYSTEM TRIGLYCERIDE 174(H) 10 - 149 mg/dL INTERFACE SYSTEM HDL 45 40 - 59 mg/dL INTERFACE SYSTEM CHOL/HDL RATIO 2.8 2.0 - 5.0 INTER FACE SYSTEM LDL CALCULATED 48 <=99 mg/dL INTERFACE SYSTEM LIPID PANEL COMMENT See Below INTERFACE SYSTEM Comment: The adult ATP and pediatric NCEP classifications for lipids are available on the [facility] Intranet at: [email or web address]/Republic [email or web address] DSP Select: Lab Policies and Procedures Select: Reference Ranges - Lipids 10/02/2006 7:20 AM STUDIO MODEL Magen Cabral DO CHEMISTRY ORDERABLES E dited INTERFACE SYSTEM Refer to clinic/hospital department documented in this encounter Visit Diagnoses Diagnosis Other and unspecified hyperlipidemia- Primary documented in this encounter Additional Health Concerns Infection Onset Date Last Indicated Resolved Time R/O COVID-19 10/30/2020 10/30/2020 11/06/2020 1:16 AM STUDIO MODEL documented as of this encounter Care Teams Seasoning Sprayer Relationship Specialty Start Date End Date Magen Cabral DO [address] [place] [address] PCP - General 07/18/06 documented as of this encounter
--- OUTSIDE RECORDS SUMMARY | 2025-05-09 08:47 | XMS_ITS | Encounter Summary ---
Author Organization [facility] Address [address] [place] [address] Care Team Providers Care Sign Hanger Supervisor Name Role Phone Magen Cabral DO Primary Care Provider Encounter Details Date Type Department Care Team (Late st Contact Info) Description 07/19/2006 Orders Only [facility] Internal Medicine [address] [place] [address] Magen Cabral DO [address] [place] [address] Social History Tobacco Use Types Packs/Day Years Used Date Smoking Tobacco: Never Assessed Sex and Gender Information Value Date Recorded Sex Assigned at Not on file Legal Sex Male 2:48 AM TRANSPORT AIDE Gender Identity Not on file Sexual Orientation Not on file documented as of this encounter Progress Notes * Magen Cabral DO - 06/24/2008 11:41 PM CDT TIME:10:07 am PATIENT`S HOME PHONE: PATIENT`S WORK PHONE: PATIENT`S INSURANCE: [facility] WHO TOOK THE CALL: Kilo Allen GENERAL INFORMATION ALTERNATIVE PHONE NUMBER: [phone] WHO CALLED: Patient called.TO GIVE US HIS PHARMACY NUMBER [phone] PLS CALL PT WITH RESULTS OF LAB [...] R/O COVID-19 10/30/2020 10/30/2020 11/06/2020 1:16 AM TRANSPORT AIDE documented as of this encounter Care Teams Sign Hanger Supervisor Relationship Specialty Start Date End Date Magen Cabral DO [address] [place] [address] PCP - General 07/18/06 documented as of this encounter
--- OUTSIDE RECORDS SUMMARY | 2025-05-09 08:47 | XMS_ITS | Encounter Summary ---
Author Organization [employer] Address [address] [place] [address] Care Team Providers Care Commodities Trader Name Role Phone Magen Cabral DO Primary Care Provider Encounter Details Date Type Department Care Team (Late st Contact Info) Description 07/06/2006 Orders Only [facility] Internal Medicine [address] [place] [address] Magen Cabral DO [address] [place] [address] Social History Tobacco Use Types Packs/Day Years Used Date Smoking Tobacco: Never Assessed Sex and Gender Information Value Date Recorded Sex Assigned at Not on file Legal Sex Male 2:48 AM MANAGER CARDIAC CATH Gender Identity Not on file Sexual Orientation Not on file documented as of this encounter Progress Notes * Magen Cabral DO - 06/24/2008 9:38 PM CDT BLOOD PRESSURE: 148/84 Left Arm Sitting WEIGHT: 208lbs NURSE NAME: Anupchika Ann Marie ALLERGIES: No known drug allergies. MEDICATIONS: Medication list current. unsure when last Td. was CHIEF COMPLAINT REPAIRER SASH AND DOOR- establish, needs refills. HISTORY: HISTORY: 272.4-HYPERLIPIDEMIA The [...] The patient is being seen by a cell technician. CURRENT PROBLEM LIST: 272.4 HYPERLIPIDEMIA 401.1 HYPERTENSION [...] USE: Has no significant smoking history. 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 NEUROLOGIC: CRANIAL NERVES: motorized squad sergeant II-XII grossly intact. DEEP TENDON REFLEXES: Deep [...] NEW HISTORY, 07/06/2006. LAB ORDERS: Order number: [id number] Test Ordered: EKG WITH INTERPRETATION AND REPORT [id number] 414.00-CORONARY ARTERY DISEASE ASSESSMENT: The patient's chest pain pattern remains stable. Will not change medication, continue to monitor for complications. V76.41-SCREEN FOR CA OF RECTUM LAB ORDERS: Order number: [id number] Test Ordered: HEMOCCULT 64204 790.21-ABNORMAL FASTING BLOOD GLUCOSE LAB ORDERS: Order number: [id number] Test Ordered: HEMOGLOBIN A1C 1814 HEALTH MAINTENANCE: [...] R/O COVID-19 10/30/2020 10/30/2020 11/06/2020 1:16 AM MANAGER CARDIAC CATH documented as of this encounter Care Teams Commodities Trader Relationship Specialty Start Date End Date Magen Cabral DO [address] [facility] [address] [place] [address] PCP - General 07/18/06 documented as of this encounter
--- OUTSIDE RECORDS SUMMARY | 2025-05-09 08:48 | XMS_ITS | Encounter Summary ---
Author Organization [facility] Address [address] [place] [address] Care Team Providers Care Chemist Food Name Role Phone Magen Cabral DO Primary Care Provider Encounter Details Date Type Department Care Team (Late st Contact Info) Description 10/23/2006 Orders Only [facility] Internal Medicine [address] [place] [address] Magen Cabral DO [address] [place] [address] Social History Tobacco Use Types Packs/Day Years Used Date Smoking Tobacco: Never Assessed Sex and Gender Information Value Date Recorded Sex Assigned at Not on file Legal Sex Male 2:48 AM DINKEY PRESS OPERATOR Gender Identity Not on file Sexual [...] R/O COVID-19 10/30/2020 10/30/2020 11/06/2020 1:16 AM DINKEY PRESS OPERATOR documented as of this encounter Care Teams Chemist Food Relationship Specialty Start Date End Date Magen Cabral DO [address] [address] PCP - General 07/18/06 documented as of this encounter
--- OUTSIDE RECORDS SUMMARY | 2025-05-09 08:48 | XMS_ITS | Encounter Summary ---
Author Organization [facility] Address [address] [place] [address] Care Team Providers Care Maintenance Dispatcher Name Role Phone Magen Cabral DO Primary Care Provider Encounter Details Date Type Department Care Team (Late st Contact Info) Description 11/16/2007 Outpatient Historical [facility] Internal Medicine [address] [place] [address] Magen Cabral DO [address] [place] [address] Social History Tobacco Use Types Packs/Day Years Used Date Smoking Tobacco: Never Assessed Sex and Gender Information Value Date Recorded Sex Assigned at Not on file Legal Sex Male 2:48 AM SERVICE OBSERVER CHIEF Gender Identity Not on file Sexual Orientation Not on file documented as of this encounter Plan of Treatment Not on file documented as of this encounter Visit Diagnoses Not on filedocumented in this encounter Additional Health Concerns Infection Onset Date Last Indicated Resolved Time R/O COVID-19 10/30/2020 10/30/2020 11/06/2020 1:16 AM SERVICE OBSERVER CHIEF documented as of this encounter Care Teams Maintenance Dispatcher Relationship Specialty Start Date End Date Magen Cabral DO [address] [place] [address] PCP - General 07/18/06 documented as of this encounter
--- OUTSIDE RECORDS SUMMARY | 2025-05-09 08:48 | XMS_ITS | Encounter Summary ---
Author Organization [facility] Address [address] [place] [address] Care Team Providers Care Multi Craft Maintenance Technician Name Role Phone Magen Cabral DO Primary Care Provider Encounter Details Date Type Department Care Team (Late st Contact Info) Description 10/18/2006 Orders Only [facility] Internal Medicine [address] [place] [address] Magen Cabral DO [address] [place] [address] Social History Tobacco Use Types Packs/Day Years Used Date Smoking Tobacco: Never Assessed Sex and Gender Information Value Date Recorded Sex Assigned at Not on file Legal Sex Male 2:48 AM WIRE STOCKKEEPER Gender Identity Not on file Sexual Orientation Not on file documented as of this encounter Progress Notes * Magen Cabral DO - 02/01/2008 5:31 PM CDT TIME:12:43 pm PATIENT`S HOME PHONE: PATIENT`S WORK PHONE: PATIENT`S INSURANCE: [facility] WHO TOOK THE CALL: Kilo Allen GENERAL INFORMATION LAST VISIT: 10-06-06 ALTERNATIVE PHONE NUMBER: [phone] WHO CALLED: Patient called. PT NEED REFILLS MAILED EXCEPT GEMFIBROZIL HE WOULD LIKE ME TO CALL THATONE IN TO PHARMACY///PB CURRENT ALLERGY LIST: [facility] NUMBER: [phone] SECTION 1: REQUESTED ACTION browjaguar 10/18/06 at [...] R/O COVID-19 10/30/2020 10/30/2020 11/06/2020 1:16 AM WIRE STOCKKEEPER documented as of this encounter Care Teams Multi Craft Maintenance Technician Relationship Specialty Start Date End Date Magen Cabral DO [address] [place] [address] PCP - General 07/18/06 documented as of this encounter
--- OUTSIDE RECORDS SUMMARY | 2025-05-09 08:48 | XMS_ITS | Encounter Summary ---
Author Organization [facility] Address [address] [place] [address] Care Team Providers Care Harpoon Engagement Planning Operator Name Role Phone Magen Cabral DO Primary Care Provider Encounter Details Date Type Department Care Team (Late st Contact Info) Description 05/23/2007 Orders Only [facility] Internal Medicine [address] [place] [address] Magen Cabral DO [address] [place] [address] Social History Tobacco Use Types Packs/Day Years Used Date Smoking Tobacco: Never Assessed Sex and Gender Information Value Date Recorded Sex Assigned at Not on file Legal Sex Male 2:48 AM TODDLER NANNY Gender Identity Not on file Sexual Orientation Not on file documented as of this encounter Progress Notes * Magen Cabral DO - 01/25/2008 5:11 PM CDT TIME:09:51 am PATIENT`S HOME PHONE: PATIENT`S WORK PHONE: PATIENT`S INSURANCE: [facility] WHO TOOK THE CALL: Kilo Allen GENERAL INFORMATION LAST VISIT: 05-16-07 WHO CALLED: Pharmacy called. CURRENT ALLERGY LIST: [facility] PHARM[facility]Y NUMBER: [phone] SECTION 1: REQUESTED ACTION browpp 05/23/07 at [...] R/O COVID-19 10/30/2020 10/30/2020 11/06/2020 1:16 AM TODDLER NANNY documented as of this encounter Care Teams Harpoon Engagement Planning Operator Relationship Specialty Start Date End Date Magen Cabral DO [address] [place] [address] PCP - General 07/18/06 documented as of this encounter
--- OUTSIDE RECORDS SUMMARY | 2025-05-09 08:48 | XMS_ITS | Encounter Summary ---
Author Organization [facility] Address [address] [place] [address] Care Team Providers Care Small Business Consultant Name Role Phone Magen Cabral DO Primary Care Provider Encounter Details Date Type Department Care Team (Late st Contact Info) Description 11/24/2007 Outpatient Historical [facility] Internal Medicine [address] [place] [address] Magen Cabral DO [address] [place] [address] Social History Tobacco Use Types Packs/Day Years Used Date Smoking Tobacco: Never Assessed Sex and Gender Information Value Date Recorded Sex Assigned at Not on file Legal Sex Male 2:48 AM NEAR EASTERN ARCHAEOLOGY LECTURER Gender Identity Not on file Sexual Orientation Not on file documented as of this encounter Plan of Treatment Not on file documented as of this encounter Visit Diagnoses Not on filedocumented in this encounter Additional Health Concerns Infection Onset Date Last Indicated Resolved Time R/O COVID-19 10/30/2020 10/30/2020 11/06/2020 1:16 AM NEAR EASTERN ARCHAEOLOGY LECTURER documented as of this encounter Care Teams Small Business Consultant Relationship Specialty Start Date End Date Magen Cabral DO [address] [place] [address] PCP - General 07/18/06 documented as of this encounter
--- OUTSIDE RECORDS SUMMARY | 2025-05-09 08:48 | XMS_ITS | Encounter Summary ---
Author Organization [facility] Address [address] [place] [address] Care Team Providers Care Plant Technician/Control Room Operator Name Role Phone Magen Marcelo DO Primary Care Provider Encounter Details Date Type Department Care Team (Late st Contact Info) Description 11/23/2007 Outpatient Historical [facility] Magen Marcelo DO [address] [place] [address] Cor Athrscl-Uns Vessel Social History Tobacco Use Types Packs/Day Years Used Date Smoking Tobacco: Never Assessed Sex and Gender Information Value Date Recorded Sex Assigned at Not on file Legal Sex Male 2:48 AM PETROLEUM ANALYST Gender Identity Not on file Sexual Orientation [...] INTERFACE SYSTEM - 11/23/2007 8:56 AM CDT [facility] [address] [place] [address] [email or web address] Stress Study Patient: Tanvir English MRN: Study ID: Gender: Erika : 1945 Age: 62 years Race: 1 Room: Bed: Height: Study Date: November 23, 2007 Patient status: Outpatient Weight: Access. #: [id number] POC: Ordering: Jacqueline Attending MD: Jacqueline Admitting MD: Jaqcueline Study Conclusions: SUMMARY - Stress results : [...] peak heart rate [place] blood [place] [address]. - There was no chest pain during stress. - The stress test was terminated due to severe dyspnea. - There were no stress arrhythmias or conduction abnormalities. - The stress ECG was negative for ischemia. Prepared and Electronically Authenticated Maged Riley MD Confirmed November 23, 2007 08:40:31 Procedure Note Provider, Historical - 11/23/2007 [address] [address] [place] [address] [email or web address] Stress Study Patient: Tanvir English MRN: Study ID: Gender: M : 1945 Age: 62 years Race: 1 Room: Bed: Height: Study Date: November 23, 2007 Patient status: Outpatient Weight: Access. #: [id number] POC: Ordering: Jacqueline Attending MD: Jacqueline Admitting [...] the peak heart rate and blood pressurewas 92970. - There was no chest pain during stress. - The stress test was terminated due to severe dyspnea. - There were no stress arrhythmias or conduction abnormalities. - The stress ECG was negative for ischemia. Prepared and Electronically Authenticated Maged Riley MD Confirmed November 23, 2007 08:40:31 us Magen Marcelo DO US ORDERABLES Final Result Performing Organization Address City/State/[facility] Co de Phone Number INTERFACE SYSTEM Refer to clinic/hospital department * NM MYOCARDIAL PERFUSION EF (11/23/2007 7:10 AM CDT) 11/23/2007 7:10 AM CDT Narrative INTERFACE SYSTEM - 11/23/2007 6:15 PM CDT [facility] [address] [place], [place] [address] Admit Date: 11/23/2007 TANVIR ENGLISH Sex: Erika Admit Prov: MAGEN MARCELO Date: 1945 Primary Care Prov: MAGEN MARCELO; CMRN: [id number] JINA EUCEDA SSN: [id number] Room: [facility] Ordering Prov: N/A Accession Number: [id number] Interpretation Date of Procedure: 11/23/2007 Procedure Type: [...] Procedure Note Gladis Ashton MD - 11/23/2007 [facility] [address] [place], [place] [address] Admit Date: 11/23/2007 ABHISHEKTANVIR COON Sex: M Admit Prov: MAGEN MARCELO Date: 1945 Primary Care Prov: MAGEN MARCELO; CMRN: [id number] CATHRYNTIMOTHY MAKTatum James N: [id number] Room: [facility] Ordering Prov: N/A Interpretation Date [...] ASHTON 11/23/2007 18:15 us Magen Marcelo DO IA ORDERABLES Final Result INTERFACE SYSTEM Refer to clinic/hospital department documented in this encounter Visit Diagnoses Diagnosis Coronary atherosclerosis of unspecified type of vessel, [facility] or graft documented in this encounter Additional Health Concerns Infection Onset Date Last Indicated Resolved Time R/O COVID-19 10/30/2020 10/30/2020 11/06/2020 1:16 AM PETROLEUM ANALYST documented as of this encounter Care Teams Plant Technician/Control Room Operator Relationship Specialty Start Date End Date Magen Marcelo DO [address] [place] [address] PCP - General 07/18/06 documented as of this encounter
--- OUTSIDE RECORDS SUMMARY | 2025-05-09 08:48 | XMS_ITS | Encounter Summary ---
Author Organization [facility] Address [address] [place] [address] Care Team Providers Care Supervisor Color Making Name Role Phone Magen Cabral DO Primary Care Provider Encounter Details Date Type Department Care Team (Late st Contact Info) Description 05/16/2007 Outpatient Historical [facility] Internal Medicine [address] [place] [address] Magen Cabral DO [address] [place] [address] Social History Tobacco Use Types Packs/Day Years Used Date Smoking Tobacco: Never Assessed Sex and Gender Information Value Date Recorded Sex Assigned at Not on file Legal Sex Male 2:48 AM TOOL TECHNICIAN Gender Identity Not on file Sexual [...] R/O COVID-19 10/30/2020 10/30/2020 11/06/2020 1:16 AM TOOL TECHNICIAN documented as of this encounter Care Teams Supervisor Color Making Relationship Specialty Start Date End Date Magen Cabral DO [address] [place] [address] PCP - General 07/18/06 documented as of this encounter
--- OUTSIDE RECORDS SUMMARY | 2025-05-09 08:48 | XMS_ITS | Encounter Summary ---
Author Organization [facility] Address [address] [place] [address] Care Team Providers Care Glass Grinder Name Role Phone Magen Cabral DO Primary Care Provider Encounter Details Date Type Department Care Team (Late st Contact Info) Description 05/06/2009 Outpatient [facility] Center for [address] & [place] [address] Magen Cabral DO [address] [place] [address] Routine General Medical Examination at [...] on file Legal Sex Male 2:48 AM DEMAND GENERATOR MANAGER Gender Identity Not on file Sexual Orientation Not on file documented as of this encounter Plan of Treatment Not on file documented as of this encounter Visit Diagnoses Diagnosis Routine general medical examination at a health care facility documented in this encounter Additional Health Concerns Infection Onset Date Last Indicated Resolved Time R/O COVID-19 10/30/2020 10/30/2020 11/06/2020 1:16 AM DEMAND GENERATOR MANAGER documented as of this encounter Care Teams Glass Grinder Relationship Specialty Start Date End Date Magen Cabral DO [address] [place] [address] PCP - General 07/18/06 documented as of this encounter
--- OUTSIDE RECORDS SUMMARY | 2025-05-09 08:48 | XMS_ITS | Encounter Summary ---
Author Organization [facility] Address [address] [place] [address] Care Team Providers Care Qa Intern Name Role Phone Magen Cabral DO Primary Care Provider Encounter Details Date Type Department Care Team (Late st Contact Info) Description 07/06/2006 Outpatient Historical [facility] Internal Medicine [address] [place] [address] Magen Cabral DO [address] [place] [address] Social History Tobacco Use Types Packs/Day Years Used Date Smoking Tobacco: Never Assessed Sex and Gender Information Value Date Recorded Sex Assigned at Not on file Legal Sex Male 2:48 AM MEDICAL OFFICE RECEPTIONIST Gender Identity Not on file Sexual Orientation Not on file documented as of this encounter Plan of Treatment Not on file documented as of this encounter Visit Diagnoses Not on filedocumented in this encounter Additional Health Concerns Infection Onset Date Last Indicated Resolved Time R/O COVID-19 10/30/2020 10/30/2020 11/06/2020 1:16 AM MEDICAL OFFICE RECEPTIONIST documented as of this encounter Care Teams Qa Intern Relationship Specialty Start Date End Date Magen Cabral DO [address] [place] [address] PCP - General 07/18/06 documented as of this encounter
--- OUTSIDE RECORDS SUMMARY | 2025-05-09 08:48 | XMS_ITS | Clinical Summary ---
Author Organization [facility] [address] Address [address] [place] [address] Care Team Providers Care Pharmacovigilance Specialist Name Role Phone Moses Godwin DO Primary Care Provider [phone] Allergies No known active allergies Medications aspirin [...] mg/3 mL) pen injector injection 06/21/2024 Active terbinafine (LamiSIL) 250 mg tablet Take 1 tablet (250 mg total) by mouth daily 11/20/2024 Active Active Problems Problem Noted Date Diagnosed Date Medication side effects 12/04/2023 Class 1 obesity due to exces s calories with serious comorbidity and body mass index (BMI) of 32.0 to 32.9 in adult 05/29/2023 Mixed hyperlipidemia 11/08/[address] 09/06/2019 Impacted cerumen of right ear 08/02/2019 Otitis externa, fungal, right ear 08/02/2019 Assessment & Plan (08/02/2019 1:36 PM HEADEND TECHNICIAN): Right fungal OE. Ear cleaned. Clotrimazole drops. 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 Check MRI given duration [...] after surgery. Coronary artery disease invo lving ewiiaapaayp heart without angina pectoris 06/15/2018 Overview (06/15/2018): Added automatically from request for surgery [id number] DANIEL (dyspnea on exertion) 03/26/2018 S/P coronary [...] Encounters Date Type Department Care Team Description 05/06/2025 10:00 AM CDT Procedure visit [facility] [place] [place] Otolaryngology [address] [facility] [address] [place] [address] [place] [address] Laura Porter Au.D. Sensorineural hearing loss (SNHL) of both ears (Primary Dx); Encounter for adjustment and management of cochlear device from Last 3 Months Surgical History Surgery [...] Medical History Relation Name Comments Diabetes Brother Garymomo English Diabetes me llitus; Heart attack Brother Garymomo English Heart disease Brother Gary Christiano English Kidney disease Brother Gary Christiano English Heart failure Father Congestive hea rt failure; Alzheimer's disease Mother Yenny Cotto V[place] er Alzheimer's disease; Heart attack Mother Yenny Oliverteressa Veeter Myoc ardial infarction; Hypertension Mother Yenny Kirti Veeter Hype rtension; Memory loss Mother Yenny Kirti Veeter Relation Name Status Comments Brother Gary English [...] on file Legal Sex Male 11:52 AM HEADEND TECHNICIAN Gender Identity Male 10/02/2019 2:06 PM HEADEND TECHNICIAN Sexual Orientation Straight 06/11/2019 6: 01 PM CDT Obstetrics History Last Filed Vital Signs Vital Sign Reading Time Taken Comments Blood Pressure 128/72 01/28/2025 11:16 AM CDT Pulse 81 01/28/2025 11:16 AM CDT Temperature 36.6 C (97.9 F) 08/12/2019 5:50 PM HEADEND TECHNICIAN Respiratory Rate 18 08/12/2019 6:30 PM HEADEND TECHNICIAN Oxygen Saturation 99% 01/28/2025 11:16 AM CDT Inhaled Oxygen Concentration - - Weight 90.3 kg (199 lb) 01/28/2025 11:16 AM CDT Height 175.3 cm (5' 9) 01/28/2025 11:16 AM CDT Body Mass Index 29.39 01/28/2025 11:16 AM CDT Plan of Treatment Health Maintenance Due Date Last Done Comments Depression Screening 1945 Fall Risk Assessment 1945 Hepatitis C Screening 1945 Hepatitis B Screening 1964 Abdominal Aortic Aneurysm (A AA) Screen 2011 Well Visit 65+ 2011 Influenza Vaccine (#1) 2025 4, 05/15/2023, 05/29/2020, Additional history exists DTaP/Tdap/Td Vaccine (2 - Td or Tdap) 10/31/2025 10/31/2015 Pneumococcal vaccine 65+ Completed 06/07/2019, 11/10 Zoster Vaccine Completed 08/30/2023, 06/30/2023 Medical Devices Implanted Type Area Wax Ball Knock Out Worker Device Identifier Shelf Expiration Date Model / Serial / Lot [employer] Ci-1601-04 FeedHenry Ultra Hifocus 3d Mid Ashley Electrode Implant Cochlear - [id number] - [id number] Implanted:Qty: 1 on 08/12/2019 by Destin Mas MD at [facility] Right: Ear [employer] [id number] 01/08/2022 [id number] / [id number] / Insurance UHC MEDICARE ADVANTAGE [place] [id number] UHC MEDICARE ADVANTAGE [place] [id number] [facility] MDCR HMO REF [facility] MEDICARE ADVANTAGE Advance Directives For more information, please contact: [phone] Documents on File Type Date Recorded Patient Scruff Worker Expl anation ADVANCE DIRECTIVE 08/24/2018 3:22 PM * Full Code (Latest Code Status on File) Date Activated Date Inactivated Comments 08/17/2018 4:22 PM 08/23/2018 5:06 PM * Full Code Date Activated Date Inactivated Comments 07/17/2018 10:33 AM 07/17/2018 9:22 PM Care Teams Pharmacovigilance Specialist Relationship Specialty Start Date End Date Moses Godwin DO PCP - General 12/09/16
--- OUTSIDE RECORDS SUMMARY | 2025-05-09 08:48 | XMS_ITS | Encounter Summary ---
Author Organization [facility] Address [address] [place] [address] Care Team Providers Care Cost Engineer Name Role Phone Magen Cabral DO Primary Care Provider Encounter Details Date Type Department Care Team (Late st Contact Info) Description 11/16/2007 Outpatient Historical [facility] Internal Medicine [address] [place] [address] Magen Cabral DO [address] [place] [address] Social History Tobacco Use Types Packs/Day Years Used Date Smoking Tobacco: Never Assessed Sex and Gender Information Value Date Recorded Sex Assigned at Not on file Legal Sex Male 2:48 AM ELECTROMEDICAL EQUIPMENT REPAIRER Gender Identity Not on file Sexual Orientation Not on file documented as of this encounter Plan of Treatment Not on file documented as of this encounter Visit Diagnoses Not on filedocumented in this encounter Additional Health Concerns Infection Onset Date Last Indicated Resolved Time R/O COVID-19 10/30/2020 10/30/2020 11/06/2020 1:16 AM ELECTROMEDICAL EQUIPMENT REPAIRER documented as of this encounter Care Teams Cost Engineer Relationship Specialty Start Date End Date Magen Cabral DO [address] [place] [address] PCP - General 07/18/06 documented as of this encounter
--- OUTSIDE RECORDS SUMMARY | 2025-05-09 08:48 | XMS_ITS | Encounter Summary ---
Author Organization [facility] Address [address] [place] [address] Care Team Providers Care Boiler Operator Helper Name Role Phone Magen Marcelo DO Primary Care Provider Encounter Details Date Type Department Care Team (Late st Contact Info) Description 11/16/2007 Orders Only [facility] Internal Medicine [address] [place] [address] Magen Marcelo DO [address] [place] [address] Social History Tobacco Use Types Packs/Day Years Used Date Smoking Tobacco: Never Assessed Sex and Gender Information Value Date Recorded Sex Assigned at Not on file Legal Sex Male 2:48 AM BORDERER Gender Identity Not on file Sexual Orientation Not on file documented as of this encounter Progress Notes * Magen Marcelo DO - 02/14/2008 5:35 PM CDT CENTRAL TEST SCHEDULING DATE: NOV 16, 2007 Note created by: Ann Marie Bullard 02:32 p Patient Name : TANVIR ENGLISH Address: [address] [place] [address]. [address] D.O.B: 1945 SSN: [id number] Parent/Guardian if applicable: Patient Insurance: [facility] ID#: [id number] Group#: ORDER(S) #: [id number] Stress thallium BEST TO CALL WORK. [phone] BEST TIME TO CALL: ANYTIME. MAY WE LEAVE MESSAGE AT THAT NUMBER: YES, LEAVE MESSAGE. PLEASE SCHEDULE THE APPOINTMENT AT THE FOLLOWING LOCATION: [facility] TEST PRIORITY: 2 - 7 DAYS. SPECIAL SCHEDULING INSTRUCTIONS: [facility] ORDERING PHYSICIAN: MAGEN MARCELO DO OFFICE BLANKET CUTTING MACHINE OPERATOR & PHONE: Ann Marie Bullard ORDER PRINTED BY: NOV 20, 2007 Nichol Valle L 01:24 p FOR SCHEDULING USE ONLY: FIRST ATTEMPT Date:NOV 21, 2007 Nichol Valle L 02:13 p Spoke with Patient. NOV 21, 2007 Nichol Valle L 02:13 p TEST SCHEDULE [facility]. APPOINTMENT DATE : 11/23/2007 ( 7AM) The appointment was scheduled by Nichol Valle L at [phone] NOV 21, 2007 Nichol Valle L 02:14 p Pre-authorization number: [facility] - #[id number] EXP 01/05/08 Given/Authorized by: JONAS CHANDLER VANESSA @ [facility] FINAL ACTION Spoke with patient. Follow up [...] The patient is being seen by a take away man. V70.0-ROUTINE GENERAL MEDICAL EXAMINATION The patient is [...] subcutaneous nodules or tightening. NEUROLOGIC: CRANIAL NERVES: loading dock hand II-XII grossly intact. DEEP TENDON REFLEXES: Deep [...] monitor for complications. LAB ORDERS: Order number: [id number] Test Ordered: STRESS THALLIUM V70.0-ROUTINE GENERAL MEDICAL EXAMINATION ASSESSMENT: The patient is doing well and no distinct problems were identified on exam. V76.41-SCREEN FOR CA OF RECTUM LAB ORDERS: Order number: [id number] Test Ordered: HEMOCCULT [id number] REPEAT VITAL SIGNS: BLOOD PRESSURE: 110/60. Right [...] R/O COVID-19 10/30/2020 10/30/2020 11/06/2020 1:16 AM BORDERER documented as of this encounter Care Teams Boiler Operator Helper Relationship Specialty Start Date End Date Magen Marcelo DO [address] [facility] [address] [place] [address] PCP - General 07/18/06 documented as of this encounter
--- OUTSIDE RECORDS SUMMARY | 2025-05-09 08:48 | XMS_ITS | Encounter Summary ---
Author Organization [facility] Address [address] [place] [address] Care Team Providers Care Manganese Wheeler Name Role Phone Magen Cabral DO Primary Care Provider Encounter Details Date Type Department Care Team (Latest Contact Info) Description 05/14/2008 Outpatient [facility] [address] & [place] [address] Magen Cabral DO [address] [place] [address] Other and Unspecified Hyperlipidemia Social History Tobacco Use Types Packs/Day Years Used Date Smoking Tobacco: Never Assessed Sex and Gender Information Value Date Recorded Sex Assigned at Not on file Legal Sex Male 2:48 AM FANCY NEEDLEWORKER Gender Identity Not on file Sexual Orientation Not on file documented as of this encounter Plan of Treatment Not on file documented as of this encounter Visit Diagnoses Diagnosis Other and unspecified hyperlipidemia documented in this encounter Additional Health Concerns Infection Onset Date Last Indicated Resolved Time R/O COVID-19 10/30/2020 10/30/2020 11/06/2020 1:16 AM FANCY NEEDLEWORKER documented as of this encounter Care Teams Manganese Wheeler Relationship Specialty Start Date End Date Magen Cabral DO [address] [place] [address] PCP - General 07/18/06 documented as of this encounter
--- OUTSIDE RECORDS SUMMARY | 2025-05-09 08:48 | XMS_ITS | Encounter Summary ---
Author Organization [employer] Address [address] [place] [address] Care Team Providers Care Steward/Stewardess Night Name Role Phone Magen Cabral DO Primary Care Provider Reason for Visit * Reason Onset Date Comments Medication Refill 04/19/2012 Encounter Details Date Type Department Care Team (Late st Contact Info) Description 04/19/2012 Refill Central Business Office [address] [place] [address] Tae, Generic Provider Social History Tobacco Use Types Packs/Day Years Used Date Smoking Tobacco: Former Cigarettes 0 05/19/1976 - 05/19/1996 Alcohol Use Standard Drinks/Week Comments Yes 0 (1 standard drink = 0.6 oz pur e alcohol) social Sex and Gender Information Value Date Recorded Sex Assigned at Not on file Legal Sex Male 2:48 AM ENVIRONMENTAL ISSUES INSTRUCTOR Gender Identity Not on file Sexual Orientation Not on file documented as of this encounter Plan of Treatment Not on file documented as of this encounter Visit Diagnoses Not on filedocumented in this encounter Additional Health Concerns Infection Onset Date Last Indicated Resolved Time R/O COVID-19 10/30/2020 10/30/2020 11/06/2020 1:16 AM ENVIRONMENTAL ISSUES INSTRUCTOR documented as of this encounter Care Teams Steward/Stewardess Night Relationship Specialty Start Date End Date Magen Cabral DO [address] [place] [address] PCP - General 07/18/06 documented as of this encounter
--- OUTSIDE RECORDS SUMMARY | 2025-05-09 08:48 | XMS_ITS | Encounter Summary ---
Author Organization [employer] Address [address] [place] [address] Care Team Providers Care Staff Research Associate Name Role Phone Magen Cabral DO Primary Care Provider Encounter Details Date Type Department Care Team (Late st Contact Info) Description 01/05/2007 Orders Only [facility] Internal Medicine [address] [place] [address] Magen Cabral DO [address] [place] [address] Social History Tobacco Use Types Packs/Day Years Used Date Smoking Tobacco: Never Assessed Sex and Gender Information Value Date Recorded Sex Assigned at Not on file Legal Sex Male 2:48 AM ASSISTANT PROFESSOR OF MARINE BIOLOGY Gender Identity Not on file Sexual Orientation [...] return in 3 months.chol/bp Electronically Signed by: Magen Cabral DO on Friday, January 05, 2007 documented in this encounter Plan of Treatment Not on file documented as of this encounter Visit Diagnoses Not on filedocumented in this encounter Additional Health Concerns Infection Onset Date Last Indicated Resolved Time R/O COVID-19 10/30/2020 10/30/2020 11/06/2020 1:16 AM ASSISTANT PROFESSOR OF MARINE BIOLOGY documented as of this encounter Care Teams Staff Research Associate Relationship Specialty Start Date End Date Magen Cabral DO [address] [place] [address] PCP - General 07/18/06 documented as of this encounter
--- OUTSIDE RECORDS SUMMARY | 2025-05-09 08:48 | XMS_ITS | Encounter Summary ---
Author Organization [facility] Address [address] [place] [address] Care Team Providers Care Bullard Machine Operator Name Role Phone Magen Cabral DO Primary Care Provider Encounter Details Date Type Department Care Team (Late st Contact Info) Description 11/16/2007 Outpatient Historical [facility] Internal Medicine [address] [place] [address] Magen Cabral DO [address] [place] [address] Social History Tobacco Use Types Packs/Day Years Used Date Smoking Tobacco: Never Assessed Sex and Gender Information Value Date Recorded Sex Assigned at Not on file Legal Sex Male 2:48 AM MICROBIOLOGY LAB ANALYST Gender Identity Not on file Sexual Orientation Not on file documented as of this encounter Last Filed Vital Signs Vital Sign Reading Time Taken Comments Blood Pressure 110/60 11/16/2007 2:00 PM MICROBIOLOGY LAB ANALYST Pulse - - Temperature - - Respiratory Rate - - Oxygen Saturation - - Inhaled Oxygen Concentration - - Weight 98 kg (216 lb) 11/16/2007 2:00 PM MICROBIOLOGY LAB ANALYST Height - - Body Mass Index - - documented in this encounter Plan of Treatment Not on file documented as of this encounter Visit Diagnoses Not on filedocumented in this encounter Additional Health Concerns Infection Onset Date Last Indicated Resolved Time R/O COVID-19 10/30/2020 10/30/2020 11/06/2020 1:16 AM MICROBIOLOGY LAB ANALYST documented as of this encounter Care Teams Bullard Machine Operator Relationship Specialty Start Date End Date Magen Cabral DO [address] [place] [address] PCP - General 07/18/06 documented as of this encounter
--- OUTSIDE RECORDS SUMMARY | 2025-05-09 08:48 | XMS_ITS | Encounter Summary ---
Author Organization [employer] [facility] Address [address] [place] [address] Care Team Providers Care Granite Fabricator Name Role Phone Magen Cabral DO Primary Care Provider Encounter Details Date Type Department Care Team (Latest Contact Info) Description 12/27/2006 Outpatient Historical [facility] Internal Medicine [address] [place] [address] Magen Cabral DO [address] [place] [address] Other and Unspecified Hyperlipidemia (Primary Dx) Social History Tobacco Use Types Packs/Day Years Used Date Smoking Tobacco: Never Assessed Sex and Gender Information Value Date Recorded Sex Assigned at Not on file Legal Sex Male 2:48 AM JOINERY PATTERNMAKER Gender Identity Not on file Sexual Orientation [...] and non- Americans is available on the [facility] Intranet at: [email or web address] TV Select: Lab Policies and Procedures Select: Reference [...] classifications for lipids are available on the [facility] Space Scienceset at: [email or web address] TV Select: Lab Policies and Procedures Select: Reference Ranges - Lipids 12/27/2006 7:12 AM CDT Magen Cabral DO CHEMISTRY ORDERABLES E dited INTERFACE SYSTEM Refer to clinic/hospital department documented in this encounter Visit Diagnoses Diagnosis Other and unspecified hyperlipidemia- Primary documented in this encounter Additional Health Concerns Infection Onset Date Last Indicated Resolved Time R/O COVID-19 10/30/2020 10/30/2020 11/06/2020 1:16 AM JOINERY PATTERNMAKER documented as of this encounter Care Teams Granite Fabricator Relationship Specialty Start Date End Date Magen Cabral, [address] [address] PCP - General 07/18/06 documented as of this encounter
--- OUTSIDE RECORDS SUMMARY | 2025-05-09 08:48 | XMS_ITS | Encounter Summary ---
Author Organization [employer] [facility] Address [address] [place] [address] Care Team Providers Care Screen Tender Helper Name Role Phone Magen Cabral DO Primary Care Provider Encounter Details Date Type Department Care Team (Late st Contact Info) Description 11/07/2007 Outpatient Historical [facility] Internal Medicine [address] [place] [address] Magen Cabral DO [address] [place] [address] Special Screening for Malignant Neoplasm of Prostate Social History Tobacco Use Types Packs/Day Years Used Date Smoking Tobacco: Never Assessed Sex and Gender Information Value Date Recorded Sex Assigned at Not on file Legal Sex Male 2:48 AM RADIOLOGY TECH Gender Identity Not on file Sexual Orientation Not on file documented as of this encounter Plan of Treatment Not on file documented as of this encounter Procedures Procedure Name Priority Date/Time Associated Diagnosis Comments TSH WITH REFLEX FT4 AND FT3 Routine 11/07/2007 7:17 AM RADIOLOGY TECH URINALYSIS WITH REFLEX CULTURE Routine 11/07/2007 7:17 AM RADIOLOGY TECH CBC WITH DIFFERENTIAL Routine 11/07/2007 7:17 AM RADIOLOGY TECH URINALYSIS W/REFLEX MICROSCOPIC Routine 11/07/2007 7:17 AM RADIOLOGY TECH PSA Routine 11/07/2007 7:17 AM RADIOLOGY TECH LIPID PANEL Routine 11/07/2007 7:17 AM RADIOLOGY TECH COMPREHENSIVE METABOLIC PANEL Routine 11/07/2007 7:17 AM RADIOLOGY TECH documented in this encounter Results * URINALYSIS (11/07/2007 7:17 AM RADIOLOGY TECH) [facility] LEUKOCYTE ESTERASE UA Negative Negative [facility] SPECIFIC GRAVITY UA 1.015 1.001 - 1.035 [facility] GLUCOSE UA Negative Negative [facility] BLOOD UA Negative Negative [facility] COLOR UA Yellow [facility] NITRITE UA Negative Negative [facility] UROBILINOGEN UA <1 <=1 mg/dL [facility] PH UA 6.0 5.0 - 8.0 [facility] KETONES UA Negative Negative [facility] CLARITY UA Clear Clear [facility] BILIRUBIN UA Negative Negative [facility] PROTEIN UA Negative Negative [facility] 11/07/2007 7:17 AM RADIOLOGY TECH 11/07/2007 11:23 AM RADIOLOGY TECH Magen Cabral DO URINE ORDERABLES Final Result [facility] [address] [place], [place] [address] * PSA (11/07/2007 7:17 AM RADIOLOGY TECH) [facility] PSA 0.5 0.0 - 4.0 ng/mL [facility] Comment:ansiPerformed on [employer] he Modular E170 System Blood specimen (specimen) 11/07/2007 7:17 AM RADIOLOGY TECH 11/07/2007 11:23 AM RADIOLOGY TECH Magen Cabral DO CHEMISTRY ORDERABLES E dited [facility] [address] [place] [address] * (ABNORMAL) CBC WITH DIFFERENTIAL (11/07/2007 7:17 AM RADIOLOGY TECH) HEMOGLOBIN 12.8(L) 13.6 - 16.5 g/dL [facility] RDW 15.0(H) 11.5 - 14.5 % [facility] WBC 5.1 4.0 - 9.8 K/uL [facility] MCH 28.8 27.2 - 32.6 pg [facility] MPV 11.2 9.3 - 12.4 fL [facility] HEMATOCRIT 38.5(L) 40.0 - 48.0 % [facility] RDW-STDEV 47.1 37.1 - 48.7 fL [facility] RBC 4.45(L) 4.50 - 5.40 M/uL [facility] MCHC 33.2 31.5 - 35.5 % [facility] MCV 86.5 82.0 - 99.0 fL [facility] PLATELETS 191 140 - 350 K/uL [facility] EOSINOPHILS 3 0 - 7 % [facility] EOSINOPHIL ABSOLUTE 0.14 0.00 - 0.70 K/uL [facility] LYMPHOCYTES 32 16 - 45 % [facility] LYMPHOCYTE ABSOLUTE 1.60 0.70 - 4.50 K/uL [facility] BASOPHILS 1 0 - 2 % [facility] BASOPHILS ABSOLUTE 0.05 0.00 - 0.20 K/uL [facility] MONOCYTES 10 3 - 13 % [facility] MONOCYTE ABSOLUTE 0.49 0.10 - 1.30 K/uL [facility] NEUTROPHILS 55 45 - 70 % [facility] NEUTROPHIL ABSOLUTE 2.77 1.90 - 7.00 K/uL [facility] Blood specimen (specimen) 11/07/2007 7:17 AM RADIOLOGY TECH 11/07/2007 11:23 AM RADIOLOGY TECH Magen Cabral DO HEMATOLOGY ORDERABLES Edited Performing Organization Address City/[facility] Co de Phone Number INTERFACE SYSTEM Refer to clinic/hospital department [facility] [address] [place] [address] * URINALYSIS WITH REFLEX CULTURE (11/07/2007 7:17 AM RADIOLOGY TECH) URINE CULTURE ORDER Not indicated [facility] Comment: Criteria for a reflex culture include one or more of the following: Abnormal nitrite, leukocyte esterase, WBCs or RBCs. Lack of qualifying criteria does not exclude the possiblity of a urinary tract infection. Dilute urine, drug interference, etc. may decrease the sensitivity of the criteria analytes. Urine, clean catch 11/07/2007 7:17 AM RADIOLOGY TECH 11/07/2007 11:23 AM RADIOLOGY TECH Magen Cabral DO URINE ORDERABLES Final Result Performing Organization Address [facility] de Phone Number [facility] [place] [place] [address] * TSH WITH REFLEX FT4 AND FT3 (11/07/2007 7:17 AM RADIOLOGY TECH) TSH 1.64 0.27 - 4.20 uU/mL [facility] Blood specimen (specimen) 11/07/2007 7:17 AM RADIOLOGY TECH 11/07/2007 11:23 AM RADIOLOGY TECH Magen S Schoenwalder DO CHEMISTRY ORDERABLES E dited [facility] [address] [place] [address] * (ABNORMAL) COMPREHENSIVE METABOLIC PANEL (11/07/2007 7:17 AM RADIOLOGY TECH) POTASSIUM 4.1 3.5 - 4.9 mmol/L [facility] TOTAL PROTEIN 7.2 6.3 - 8.6 g/dL [facility] GLUCOSE 102(H) 65 - 99 mg/dL [facility] AST 26 12 - 38 U/L [facility] BUN 20 6 - 20 mg/dL [facility] CALCIUM 9.0 8.4 - 10.2 mg/dL [facility] ALBUMIN 4.4 3.4 - 4.8 g/dL [facility] CHLORIDE 102 96 - 108 mmol/L [facility] CREATININE 1.19(H) 0.67 - 1.17 mg/dL [facility] ALT 27 0 - 41 U/L [facility] SODIUM 137 135 - 145 mmol/L [facility] ALKALINE PHOSPHATASE 58 40 - 129 U/L [facility] CO2 22 22 - 30 mmol/L [facility] BILIRUBIN TOTAL 0.3 0.2 - 1.0 mg/dL [facility] GFR, >60 >=60 mL/min/1. 7 sq meter [facility] GFR >60 >=60 mL/min/1. 7 sq meter [facility] Comment: Estimated GFR rate interpretative information for both Americans and non- Americans is available on the [facility] Intranet at: [email or web address] Select: Lab Policies and Procedures Select: Reference Ranges - GFR Blood specimen (specimen) 11/07/2007 7:17 AM RADIOLOGY TECH 11/07/2007 11:23 AM RADIOLOGY TECH Magen Cabral DO CHEMISTRY ORDERABLES E dited Performing Organization Address [facility] de Phone Number [facility] [address] [place] [address] * (ABNORMAL) LIPID PANEL (11/07/2007 7:17 AM RADIOLOGY TECH) HDL 35(L) 40 - 59 mg/dL [facility] CHOLESTEROL 130 100 - 199 mg/dL [facility] CHOL/HDL RATIO 3.7 2.0 - 5.0 [facility] TRIGLYCERIDE 201(H) 10 - 149 mg/dL [facility] LDL CALCULATED 55 <=99 mg/dL [facility] LIPID PANEL COMMENT See Below [facility] Comment: The adult ATP and pediatric NCEP classifications for lipids are available on the [facility] Intranet at: [email or web address] Select: Lab Policies and Procedures,Current Select: Lipid Panel Interpretation Blood specimen (specimen) 11/07/2007 7:17 AM RADIOLOGY TECH 11/07/2007 11:23 AM RADIOLOGY TECH Magen Cabral DO CHEMISTRY ORDERABLES E dited Performing Organization Address City/[facility] Co de Phone Number [facility] [address] [place] [address] documented in this encounter Visit Diagnoses Diagnosis Special screening for malignant neoplasm of prostate documented in this encounter Additional Health Concerns Infection Onset Date Last Indicated Resolved Time R/O COVID-19 10/30/2020 10/30/2020 11/06/2020 1:16 AM RADIOLOGY TECH documented as of this encounter Care Teams Screen Tender Helper Relationship Specialty Start Date End Date Magen Cabral DO [address] [place] [address] PCP - General 07/18/06 documented as of this encounter
--- OUTSIDE RECORDS SUMMARY | 2025-05-09 08:48 | XMS_ITS | Encounter Summary ---
Author Organization [employer] [facility] Address [address] [place] [address] Care Team Providers Care Solutions Market Consultant Name Role Phone Magen Cabral DO Primary Care Provider Encounter Details Date Type Department Care Team (Latest Contact Info) Description 05/11/2007 Outpatient Historical [facility] Internal Medicine [address] [place] [address] Magen Cabral DO [address] [place] [address] Other and Unspecified Hyperlipidemia (Primary Dx) Social History Tobacco Use Types Packs/Day Years Used Date Smoking Tobacco: Never Assessed Sex and Gender Information Value Date Recorded Sex Assigned at Not on file Legal Sex Male 2:48 AM EVP [place] Gender Identity Not on file Sexual Orientation [...] and non- Americans is available on the [facility] Intranet at: [email or web address] Select: Lab Policies and Procedures Select: Reference [...] classifications for lipids are available on the [facility] 99Presentset at: [email or web address] Select: Lab Policies and Procedures Select: Reference Ranges - Lipids 05/11/2007 7:28 AM CDT Magen Cabral DO CHEMISTRY ORDERABLES E dited INTERFACE SYSTEM Refer to clinic/hospital department documented in this encounter Visit Diagnoses Diagnosis Other and unspecified hyperlipidemia- Primary documented in this encounter Additional Health Concerns Infection Onset Date Last Indicated Resolved Time R/O COVID-19 10/30/2020 10/30/2020 11/06/2020 1:16 AM EVP [place] documented as of this encounter Care Teams Solutions Market Consultant Relationship Specialty Start Date End Date Magen Cabral, [address] [id number] PCP - General 07/18/06 documented as of this encounter
--- OUTSIDE RECORDS SUMMARY | 2025-05-09 08:48 | XMS_ITS | Encounter Summary ---
Author Organization [facility] Address [address] [place] [address] Care Team Providers Care Retail Sales Director Name Role Phone Magen Cabral DO Primary Care Provider Encounter Details Date Type Department Care Team (Late st Contact Info) Description 11/05/2008 Outpatient [facility] Center for [address] & [place] [address] Magen Cabral DO [address] [place] [address] Routine General Medical Examination at [...] on file Legal Sex Male 2:48 AM GIS SPECIALIST Gender Identity Not on file Sexual Orientation Not on file documented as of this encounter Plan of Treatment Not on file documented as of this encounter Visit Diagnoses Diagnosis Routine general medical examination at a health care facility documented in this encounter Additional Health Concerns Infection Onset Date Last Indicated Resolved Time R/O COVID-19 10/30/2020 10/30/2020 11/06/2020 1:16 AM GIS SPECIALIST documented as of this encounter Care Teams Retail Sales Director Relationship Specialty Start Date End Date Magen Cabral DO [address] [place] [address] PCP - General 07/18/06 documented as of this encounter
--- OUTSIDE RECORDS SUMMARY | 2025-05-09 08:48 | XMS_ITS | Clinical Summary ---
Author Organization [facility] Address [address] [place] [address] Phone Care Team Providers Care Steward/Stewardess Second Class Name Role Phone Moses Godwin DO Primary Care Provider Allergies No known active allergies Medications aspirin EC 81 MG Tablet Delayed Response Take 81 mg by mouth daily. Active lisinopril (PRINIVIL, ZESTRIL) 20 MG Tablet Take 20 mg by mouth daily. Active traZODone (DESYREL) 100 MG Tablet Take 100 mg by mouth nightly. Active METOPROLOL SUCCINATE PO Take 12.5 mg by mouth 2 times daily. Active Semaglutide (OZEMPIC, 1 MG/DOSE, SC) by Subcutaneous route. Active atorvastatin (LIPITOR) 20 MG Tablet Take 20 mg by mouth daily. Active Family History Medical History Relation Name Comments Coronary Artery Disease Father Relation Name Status Comments Father Social History Tobacco Use Types Packs/Day Years Used Date Smoking Tobacco: Former Cigarettes Smokeless Tobacco: Never Tobacco Cessation:Counseling Given: Not Answered Alcohol Use Standard Drinks/Week Comments Yes 0 (1 standard drink = 0.6 oz pur e alcohol) 1 to 2 per month Sex and Gender Information Value Date Recorded Sex Assigned at Not on file Legal Sex Male 3:46 PM CDT Gender Identity Not on file Sexual Orientation Not on file Last Filed Vital Signs Vital Sign Reading Time Taken Comments Blood Pressure - - Pulse - - Temperature - - Respiratory Rate - - Oxygen Saturation - - Inhaled Oxygen Concentration - - Weight - - Height 177.8 cm (5' 10) 01/21/2025 7:41 AM CDT Body Mass Index - - Plan of Treatment Upcoming Encounters Date Type Department Care Team (Late st Contact Info) Description 08/14/2025 1:00 PM COMMODITIES REQUIREMENTS ANALYST Office Visit [facility] - [place] [address] [place] [phone] Finn Tan MD [address] [place] [phone] Health Maintenance Due Date Last Done Comments Hepatitis C Virus (HCV) Screening 1945 Pneumococcal Immunization (50+ years) (2 of 2 - PCV) 06/07/2020 06/07/2019 SARS-COV-2 Immunization ( season) 2024 05/27/2024, 06/05/2023, 02/04/2023, Additional history exists Influenza Immunization (#1) 05/12/202505/12, 06/05/2023, 05/02/2022, Additional history exists TdaP Immunization Completed 10/31/2015 Respiratory Syncytial Virus (RSV) Immunization (Adult) Completed 06/19/2023 Zoster Immunization Completed 08/30/2023, Hepatitis B Immunization Aged Out No longer eligible based on patient's age to complete this topic Human Papillomavirus (HPV) Immunization Aged Out No longer eligible based on patient's age to complete this topic Meningococcal Immunization (ACWY) Aged Out No longer eligible based on patient's age to complete this topic Rotavirus Immunization Aged Out No lo nger eligible based on patient's age to complete this topic Insurance MEDICARE C [employer] Care Teams Steward/Stewardess Second Class Relationship Specialty Start Date End Date Moses Godwin DO [facility] [place] [address] PCP - General Internal Medicine 01/20/25
--- OUTSIDE RECORDS SUMMARY | 2025-05-09 08:48 | XMS_ITS | Encounter Summary ---
Author Organization [facility] Address 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 Gender Identity Not on file Sexual Orientation Not on file documented as of this encounter Last Filed Vital Signs Vital Sign Reading Time Taken Comments Blood Pressure 110/60 10/06/2006 3:00 PM IT SALES CONSULTANT Pulse 70 10/06/2006 3:00 PM IT SALES CONSULTANT Temperature 37 C (98.6 F) 10/06/2006 3:00 PM IT SALES CONSULTANT Respiratory Rate - - Oxygen Saturation - - Inhaled Oxygen Concentration - - Weight 96.6 kg (213 lb) 10/06/2006 3:00 PM IT SALES CONSULTANT Height - - Body Mass Index - - documented in this encounter Plan of Treatment Not on file documented as of this encounter Visit Diagnoses Not on filedocumented in this encounter Additional Health Concerns Infection Onset Date Last Indicated Resolved Time R/O COVID-19 10/30/2020 10/30/2020 11/06/2020 1:16 AM IT SALES CONSULTANT documented as of this encounter Care Teams Addiction Professional Relationship Specialty Start Date End Date Magen Cabral DO [address] [place] [address] PCP - General 07/18/06 documented as of this encounter
--- OUTSIDE RECORDS SUMMARY | 2025-05-09 08:48 | XMS_ITS | Encounter Summary ---
Author Organization [employer] [facility] Address 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 Gender Identity Not on file Sexual Orientation Not on file documented as of this encounter Last Filed Vital Signs Vital Sign Reading Time Taken Comments Blood Pressure 122/84 10/23/2006 10:15 AM VACUUM FURNACE OPERATOR Pulse - - Temperature - - Respiratory Rate - - Oxygen Saturation - - Inhaled Oxygen Concentration - - Weight 94.8 kg (209 lb) 10/23/2006 10:15 AM VACUUM FURNACE OPERATOR Height - - Body Mass Index - - documented in this encounter Plan of Treatment Not on file documented as of this encounter Visit Diagnoses Not on filedocumented in this encounter Additional Health Concerns Infection Onset Date Last Indicated Resolved Time R/O COVID-19 10/30/2020 10/30/2020 11/06/2020 1:16 AM VACUUM FURNACE OPERATOR documented as of this encounter Care Teams Intake Clinician Relationship Specialty Start Date End Date Magen Cabral DO [address] [place] [address] PCP - General 07/18/06 documented as of this encounter
--- OUTSIDE RECORDS SUMMARY | 2025-05-09 08:48 | XMS_ITS | Encounter Summary ---
Author Organization [facility] Address 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
--- OUTSIDE RECORDS SUMMARY | 2025-05-09 08:48 | XMS_ITS | Clinical Summary ---
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 Gender Identity Not on file Sexual Orientation Not on file Last Filed Vital Signs Vital Sign Reading Time Taken Comments Blood Pressure 124/64 06/08/2012 10:55 AM CDT Pulse 87 01/05/2007 3:00 PM CDT Temperature 37 C (98.6 F) 10/06/2006 3:00 PM P 3 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 Respiratory Rate - - Oxygen Saturation - - Inhaled Oxygen Concentration - - Weight 98.4 kg (217 lb) 06/08/2012 10:55 AM CDT Height 177.8 cm (5' 10) 06/08/2012 10:55 AM CDT Body Mass Index 31.14 06/08/2012 10:55 AM CDT Plan of Treatment Health Maintenance Due Date Last Done Comments DTAP/TDAP/TD VACCINES (1 - Tdap) 1965 ZOSTER VACCINE (1 of 2) 1996 PNEUMOCOCCAL VACCINE 50+ YEA RS (2 of 2 - PCV20 or PCV21) 12/01/2012 12/02/2011 COLORECTAL SCREENING 08/27/2013 08/27/2009, 08/26/2009, 05/12/2006 RSV VACCINE (60+ or ) (1 - 1-dose 75+ series) 2021 INFLUENZA VACCINE (#1) 2025 06/08/2012, 2011 Procedures Procedure Name Priority Date/Time [...] of Phone Billing Address Personal/Family Self 1945 [phone] [employer] (Work) [address] [place] [address] [phone] [facility] [address] Care Teams Appian Bpm Developer Relationship Specialty Start Date End Date Magen Cabral DO [address] [place] [address] PCP - General 07/18/06
[2025-05-09 18:21] LABS: Hematocrit 43.9 % (42.0-52.0); Hemoglobin 14.3 g/dL (14.0-18.0); Immature Granulocyte Percent A 0.8 % (0-0.5); Lymphocytes Absolute Auto 1.31 K/mm3 (0.9-3.2); Mean Corpuscular HGB Conc 32.6 g/dl (32-36); Mean Corpuscular Hemoglobin 29.5 pg (26-34); Mean Corpuscular Volume 90.7 fl (80-100); Nucleated Red Blood Cells Absolute Auto 0.000 K/mm3 (0.0-0.012); Nucleated Red Blood Cells Perc 0.0 % (0.0-0.2); Platelet Count Result 148 k/mm3 (150-375); Red Blood Count 4.84 M/mm3 (4.6-6.20); White Blood Count 6.6 K/mm3 (4.5-10.0)
[2025-05-09 18:52] LABS: Hemoglobin A1C 5.0 % (<5.7)
[2025-05-09 19:14] LABS: Alanine Aminotransferase 14 U/L (6-50); Albumin Level 4.4 g/dL (3.5-5.1); Alkaline Phosphatase 90 U/L (38-126); Anion Gap 10 mmol/L (4-12); Aspartate Amino Transferase 34 U/L (17-59); Bilirubin,Total 0.9 mg/dL (0.2-1.3); Blood Urea Nitrogen 18 mg/dL (9-20); Calcium 10.1 mg/dL (8.4-10.2); Carbon Dioxide 25 mmol/L (22-30); Chloride 100 mmol/L (98-107); Estimated Glomerular Filt Rate 51; Glucose 79 mg/dL (65-110); Potassium 4.9 mmol/L (3.4-5.0); Sodium 135 mmol/L (137-145); Total Protein 7.9 g/dL (6.3-8.2)
[2025-05-09 19:42] LABS: MALB Creatinine Ratio 220.2 mg/g (0-30)
== END 2025-05-09 08:43 | disposition home or self-care (01) ==
PROVIDERS: PCP Internal Medicine; Visit Provider Clinical Nurse Specialist
DX: I12.9 Hypertensive chronic kidney disease with stage 1 through stage 4 chronic kidney disease, or unspecified chronic kidney disease (principal); I25.810 Atherosclerosis of coronary artery bypass graft(s) without angina pectoris; E11.22 Type 2 diabetes mellitus with diabetic chronic kidney disease; N18.32 Chronic kidney disease, stage 3b; D64.9 Anemia, unspecified; D61.818 Other pancytopenia
CPT/HCPCS: 36415; 80053; 82043; 83036; 85025